=== PATIENT | female | born 1995 | race Caucasian/White ===

== ENCOUNTER 2018-08-20 08:15 | Outpatient (CLI) | payer BC ==
--- NOTE | 2018-08-22 03:39 | Ultrasound Report ---
Reason: TEST POSITIVE Procedure Date: 08/20/2018 Accession Number: [id number] / [id number] Procedure: US - OB First Trimester CPT Code: FULL RESULT: EXAM: FIRST TRIMESTER OBSTETRIC ULTRASOUND (Less than 11 weeks) EXAM DATE: 08/20/2018 09:06 AM. CLINICAL HISTORY: test positive. LMP: Unknown. COMPARISONS: None. TECHNIQUE: Transabdominal and transvaginal ultrasound examination with static image documentation. FINDINGS: Gestational Sac: Approximately 6 mm cystic collection in the uterus is probably an early intrauterine uterine gestation. No yolk sac or pole seen currently. Placenta: Not visible at this gestational age. Amniotic fluid: Not accurately assessed at this gestational age. Uterus: Unremarkable anteverted appearance. Cervix: Closed. Right Ovary: Volume 81 cc. Contains a 65 x 37 x 47 mm cyst. Blood flow documented to the ovary during the study. Left Ovary: Volume 9 cc. Normal echotexture and blood flow. Free Fluid: None. Other: None. IMPRESSION: 1. Probable early intrauterine gestation with gestational sac but no yolk sac or pole seen currently. Clinical and ultrasound follow-up suggested in 2 weeks to ensure viability of and for more accurate dating. 2. Right ovarian 6 cm cyst can be followed up with on the subsequent scan as well. No apparent complication.
== END 2018-08-20 08:16 | disposition home or self-care (01) ==
LOC: DI 08:15
PROVIDERS: ATTEND Nurse Practitioner Obstetrics & Gynecology
DX: Z32.01 Encounter for pregnancy test, result positive (principal)
CPT/HCPCS: 76801

== ENCOUNTER 2018-09-05 14:24 | Emergency (ER) | payer BC ==
[2018-09-05 14:30] VITALS: BP 107/68
--- NOTE | 2018-09-05 16:28 | ED Physician Documentation ---
PD HPI URI - Stated complaint Stated Complaint: SOA/CONGESTED/6WKS - Chief complaint Chief Complaint: Resp - History obtained from History obtained from: Patient - History of Present Illness Timing - onset: How many days ago (few) Timing duration: Days (few) Timing details: Gradual onset, Still present Associated symptoms: Fever, Nasal congestion, Productive cough. No: NVD (no more than usual nausea she has had for 6 weeks with .) Contributing factors: Other (side note: is 6 weeks ). No: Sick contact Improves by: No: Medication (using OTC cough med approved in ) Similar symptoms before: Has not had sx before Recently seen: Not recently seen Review of Systems Constitutional: reports: Myalgias. denies: Fever Nose: reports: Congestion Throat: denies: Sore throat Cardiac: denies: Chest pain / pressure Respiratory: reports: Dyspnea, Cough, Wheezing GI: reports: Nausea. denies: Vomiting, Diarrhea : reports: Now EGA (6). denies: Dysuria, Frequency PD PAST MEDICAL HISTORY - Past Medical History Cardiovascular: None Respiratory: None Neuro: None Endocrine/Autoimmune: None - Present Medications Home Medications: Ambulatory Orders Medication Instructions Recorded Confirmed Albuterol Sulf [Ventolin Hfa 1 - 2 puffs INH Q4HR PRN #1 inhaler 09/05/18 Inhaler] Amoxicillin 500 mg PO TID #21 capsule 09/05/18 Benzonatate [Tessalon Perle] 100 mg PO TID PRN #20 capsule 09/05/18 Dexamethasone [Decadron] 4 mg PO DAILY #5 tablet 09/05/18 Ondansetron Odt [Zofran] 4 mg TL Q6H PRN 09/05/18 09/05/18 Ondansetron Odt [Zofran] 4 mg TL Q6H PRN #20 tablet 09/05/18 - Allergies Allergies/Adverse Reactions: Allergies Allergy/AdvReac Type Severity Reaction Status Date / Time prednisone AdvReac Anxiety Verified 09/05/18 14:30 PD ED PE NORMAL - Vitals Vital signs reviewed: Yes - General General: Alert and oriented X 3, No acute distress, Well developed/nourished - HEENT HEENT: Ears normal, Moist mucous membranes, Pharynx benign - Neck Neck: Supple, no meningeal sign, No adenopathy - Cardiac Cardiac: RRR, No murmur - Respiratory Respiratory: No: Clear bilaterally (scattered exp wheezing) - Abdomen Abdomen: Soft, Non tender - Female Female : Other (bedside U/S showing normal IUP with heartbeat, size c/w dates. ) - Back Back: No CVA TTP - Derm Derm: Normal color, Warm and dry - Extremities Extremities: No edema, No calf tenderness / cord - Neuro Neuro: Alert and oriented X 3, No motor deficit, Normal speech Results - Vitals Vitals: Oxygen O2 Source Room air - Labs Labs: Laboratory Tests 09/05/18 16:39 Influenza A (Rapid) Negative Influenza B (Rapid) Negative PD MEDICAL DECISION MAKING - ED course Complexity details: reviewed results (bedside U/S showing normal IUP c/w dates and visible heart beat. ), considered differential (URI with cough, less flu-lik e, and with negative flu test. ), d/w patient Departure - Departure Disposition: 01 Home, Self Care Clinical Impression: Upper respiratory tract infection Qualifiers: URI type: unspecified URI Qualified Code(s): J06.9 - Acute upper respiratory infection, unspecified Qualifiers: Weeks of gestation: less than 8 weeks Qualified Code(s): Z3A.01 - Less than 8 weeks gestation of Condition: Stable Record reviewed to determine appropriate education?: Yes Instructions: ED Upper Resp Infec Abx Tx Follow-Up: JL WORKMAN MD [Primary Care Provider] - Prescriptions: Albuterol Sulf [Ventolin Hfa Inhaler] 1 - 2 puffs INH Q4HR PRN #1 inhaler PRN Reason: Shortness Of Air/Wheezing Amoxicillin 500 mg PO TID #21 capsule Benzonatate [Tessalon Perle] 100 mg PO TID PRN #20 capsule PRN Reason: Cough Dexamethasone [Decadron] 4 mg PO DAILY #5 tablet Ondansetron Odt [Zofran] 4 mg TL Q6H PRN #20 tablet PRN Reason: Nausea / Vomiting Comments: Stay well-hydrated. Tylenol if needed for fevers or pains. Use your albuterol inhaler 2 puffs 4 times a day for the next week and extra times as needed for wheezing and cough. Decadron steroid daily for 5 more days. If you find it makes you to anxious like the prednisone then just discontinue it. Tessalon if needed for cough. Amoxicillin 3 times a day for a week for potential bacterial cause given your symptoms. Recheck if not improving well over the next few days. Add ondansetron if needed for nausea. Discharge Date/Time: 09/05/18 17:35
[2018-09-05] MEDS ORDERED: AMOXICILLIN 250 MG CAPSULE PO STA (17:01)
[2018-09-05] MEDS ORDERED: DEXAMETHASONE 10 MG/ML VIAL PO STA (17:01)
[2018-09-05] MEDS ORDERED: BENZONATATE 100 MG CAPSULE PO STA (17:01)
== END 2018-09-05 17:35 | disposition home or self-care (01) ==
LOC: ED 14:24
DX: O99.511 Diseases of the respiratory system complicating pregnancy, first trimester (principal); J06.9 Acute upper respiratory infection, unspecified; Z3A.01 Less than 8 weeks gestation of pregnancy
CPT/HCPCS: 87275; 87276; 99283

== ENCOUNTER 2018-09-10 11:52 | Outpatient (CLI) | payer BC ==
--- NOTE | 2018-09-11 14:13 | Ultrasound Report ---
Reason: UNCERTAIN VIABILITY OF Procedure Date: 09/10/2018 Accession Number: [id number] / [id number] Procedure: US - OB First Trimester CPT Code: FULL RESULT: EXAM: FIRST TRIMESTER OBSTETRIC ULTRASOUND (Less than 11 weeks) EXAM DATE: 09/10/2018 01:00 PM. CLINICAL HISTORY: Uncertain viability of . LMP: Unknown. COMPARISONS: OB FIRST TRIMESTER 08/20/2018 8:27 AM. TECHNIQUE: Transabdominal and transvaginal ultrasound examination with static image documentation. CLINICAL DATES: Unknown dates. ASSESSMENT: Gestational Sac: Single intrauterine. Embryo: CRL (crown-rump length) 17.9 mm = 8 weeks 2 days. Cardiac activity: 157 beats per minute. Yolk sac: 5.2 mm. Amniotic fluid: Not accurately assessed at this gestational age. Early placenta: Not visible at this gestational age. Other: No perigestational fluid collection demonstrated. MATERNAL STRUCTURES: Uterus: Anteverted. Unremarkable. Cervix: Closed. Right Ovary/Adnexa: The ovary measures 3.2 x 1.6 x 2 cm, volume 5.3 cc. Unremarkable. 2 x 0.8 x 1.1 cm anechoic right ovarian cyst. No concerning features. Left Ovary/Adnexa: The ovary measures 3.7 x 2.6 x 2.1 cm, volume 10.5 cc. Unremarkable. Free Fluid: None. Other: None. IMPRESSION: 1. Single viable intrauterine at EGA 8 weeks 2 days with ABRAM 04/20/2019 based on crown-rump length. Unknown clinical dates. 2. Assigned dating is ABRAM 8 weeks 2 days based on current ultrasound. 3. 2 cm right ovarian cyst. Otherwise, both ovaries and adnexa are normal. 4. No complications such as a subchorionic hemorrhage. RADIA
== END 2018-09-10 11:53 | disposition home or self-care (01) ==
LOC: DI 11:52
PROVIDERS: ATTEND Nurse Practitioner Obstetrics & Gynecology
DX: O34.81 Maternal care for other abnormalities of pelvic organs, first trimester (principal); N83.201 Unspecified ovarian cyst, right side; Z3A.08 8 weeks gestation of pregnancy
CPT/HCPCS: 76801

== ENCOUNTER 2018-09-11 18:36 | Emergency (ER) | payer BC, OTHER ==
[2018-09-11] MEDS ORDERED: SODIUM CHLORIDE 0.9% 1,000 ML IV ONE (19:18)
[2018-09-11 19:50] LABS: BILIRUBIN,URINE NEGATIVE (NEGATIVE); GLUCOSE, URINE (UA) NEGATIVE (NEGATIVE); KETONES,URINE (UA) NEGATIVE (NEGATIVE); LEUKOCYTE ESTERASE, URINE NEGATIVE (NEGATIVE); NITRITE,URINE NEGATIVE (NEGATIVE); OCCULT BLOOD,URINE NEGATIVE (NEGATIVE); PH,URINE 6.5 PH (5.0-7.5); PROTEIN,URINE NEGATIVE (NEGATIVE); UROBILINOGEN,URINE 0.2 (NORMAL) E.U./dL (NORMAL)
[2018-09-11 19:55] LABS: CLARITY,URINE CLEAR (CLEAR)
[2018-09-11 20:04] LABS: ALBUMIN 3.9 g/dL (3.2-5.5); ALBUMIN/GLOBULIN RATIO 1.1 (1.0-2.2); BILIRUBIN,TOTAL 0.3 mg/dL (0.2-1.0); CALCIUM 8.9 mg/dL (8.5-10.3); CREATININE 0.6 mg/dL (0.4-1.0); TOTAL PROTEIN 7.3 g/dL (6.7-8.2)
[2018-09-11] MEDS ORDERED: ONDANSETRON ODT 4 MG TABLET TL STA (21:22)
--- NOTE | 2018-09-11 22:02 | ED Physician Documentation ---
History of Present Illness - Stated complaint Stated Complaint: N/V/D/8 WKS PREG - Chief complaint Chief Complaint: General - History obtained from History obtained from: Patient - History of Present Illness Timing: How many days ago (2) - Additonal information Additional information: The patient is a 22-year-old female at 8 weeks gestation, who presents with diarrhea of 2 days' duration. She describes it as loose stool, with associated lower abdominal discomfort. She also reports nausea and occasional vomiting. She denies fever, dysuria, or vaginal bleeding. She is lactose intolerant and ate cheese prior to the onset of her symptoms. Review of Systems Constitutional: denies: Fever Nose: denies: Congestion Throat: denies: Sore throat Cardiac: denies: Chest pain / pressure Respiratory: denies: Dyspnea, Cough GI: reports: Abdominal Pain (mild), Nausea, Vomiting, Diarrhea : reports: Now EGA (8 weeks gestation). denies: Dysuria Skin: denies: Rash Musculoskeletal: denies: Back pain Neurologic: denies: Headache PD PAST MEDICAL HISTORY - Past Medical History Past Medical History: No Cardiovascular: None Respiratory: None Neuro: None Endocrine/Autoimmune: None GI: None MANAGER BUDGET: None : None HEENT: None Psych: None Musculoskeletal: None - Past Surgical History Past Surgical History: No - Present Medications Home Medications: Ambulatory Orders Medication Instructions Recorded Confirmed Albuterol Sulf [Ventolin Hfa 1 - 2 puffs INH Q4HR PRN #1 inhaler 09/05/18 Inhaler] Amoxicillin 500 mg PO TID #21 capsule 09/05/18 Benzonatate [Tessalon Perle] 100 mg PO TID PRN #20 capsule 09/05/18 Dexamethasone [Decadron] 4 mg PO DAILY #5 tablet 09/05/18 Ondansetron Odt [Zofran] 4 mg TL Q6H PRN 09/05/18 09/05/18 Ondansetron Odt [Zofran] 4 mg TL Q6H PRN #20 tablet 09/05/18 - Allergies Allergies/Adverse Reactions: Allergies Allergy/AdvReac Type Severity Reaction Status Date / Time prednisone AdvReac Anxiety Verified 09/11/18 18:51 - Social History Does the pt smoke?: No Smoking Status: Current some day smoker Does the pt drink ETOH?: No Does the pt have substance abuse?: No - Immunizations Immunizations are current?: Yes PD ED PE NORMAL - Vitals Vital signs reviewed: Yes (normal) - General General: Alert and oriented X 3, Well developed/nourished - HEENT HEENT: Atraumatic, Moist mucous membranes, Pharynx benign - Neck Neck: Supple, no meningeal sign, No adenopathy - Cardiac Cardiac: RRR, No murmur - Respiratory Respiratory: No respiratory distress, Clear bilaterally - Abdomen Abdomen: Soft, Non tender - Back Back: No CVA TTP - Derm Derm: No rash - Extremities Extremities: No edema, No calf tenderness / cord - Neuro Neuro: Alert and oriented X 3, No motor deficit, Normal speech Results - Vitals Vitals: Oxygen O2 Source Room air - Labs Labs: Laboratory Tests 09/11/18 09/11/18 09/11/18 19:37 19:37 19:37 Sodium 138 Potassium 3.6 Chloride 103 Carbon Dioxide 27 Anion Gap 8.0 BUN 10 Creatinine 0.6 Estimated GFR (MDRD) 125 Glucose 92 Calcium 8.9 Total Bilirubin 0.3 AST 19 ALT 36 Alkaline Phosphatase 58 Total Protein 7.3 Albumin 3.9 Globulin 3.4 Albumin/Globulin Ratio 1.1 Lipase 31 Urine Color YELLOW Urine Clarity CLEAR Urine pH 6.5 Ur Specific Mikado 1.025 Urine Protein NEGATIVE Urine Glucose (UA) NEGATIVE Urine Ketones NEGATIVE Urine Occult Blood NEGATIVE Urine Nitrite NEGATIVE Urine Bilirubin NEGATIVE Urine Urobilinogen 0.2 (NORMAL) Ur Leukocyte Esterase NEGATIVE Ur Microscopic Review NOT INDICATED Urine Culture Comments NOT INDICATED Influenza A (Rapid) Negative Influenza B (Rapid) Negative PD MEDICAL DECISION MAKING - ED course Complexity details: reviewed results, re-evaluated patient, considered differential, d/w patient ED course: The patient's presentation is most consistent with viral gastroenteritis versus lactose intolerance. Her chemistry panel and urinalysis are normal. Treatment in the emergency department included administration of normal saline 1 L IV, and Zofran 4 mg sublingually. She subsequently demonstrated ability to drink fluids without recurrent symptoms. She had no stool while in the emergency department. I discussed with her and her male aquatics coordinator symptomatic treatment, outpatient follow-up, as well as potentially worrisome signs or symptoms that should prompt reevaluation in the emergency department. Departure - Departure Disposition: 01 Home, Self Care Clinical Impression: Diarrhea Qualifiers: Diarrhea type: unspecified type Qualified Code(s): R19.7 - Diarrhea, unspecified Qualifiers: Weeks of gestation: 8 weeks Qualified Code(s): Z3A.08 - 8 weeks gestation of Condition: Stable Instructions: ED Diet Vomiting Diarrhea Follow-Up: JL WORKMAN MD [Primary Care Provider] - [facility] [Provider Group] Comments: Drink plenty of fluids. Continue using Zofran as needed for nausea. Follow-up with your primary physician or your public health technician within 1-2 weeks. Call to schedule an appointment. Return to the emergency department if you develop increasing abdominal pain, dehydration, or otherwise worsening. Discharge Date/Time: 09/11/18 22:16
[2018-09-11 22:13] VITALS: BP 115/76
== END 2018-09-11 22:16 | disposition home or self-care (01) ==
LOC: ED 18:36
DX: O99.611 Diseases of the digestive system complicating pregnancy, first trimester (principal); R19.7 Diarrhea, unspecified; O99.331 Smoking (tobacco) complicating pregnancy, first trimester; Z3A.08 8 weeks gestation of pregnancy
CPT/HCPCS: 36415; 80053; 81003; 83690; 87275; 87276; 96360; 96361; 99282; 99284; Q0162; 81001; 87086

== ENCOUNTER 2018-09-16 08:00 | Outpatient (CLI) | payer BC, OTHER ==
[2018-09-16 18:06] LABS: MUDS CUTOFF CONCENTRATIONS CUTOFF CONC BELOW:
[2018-09-16 18:53] LABS: AMPHETAMINE SCREEN,URINE NEGATIVE (NEGATIVE); BENZODIAZEPINES SCREEN, URINE NEGATIVE (NEGATIVE); COCAINE SCREEN URINE NEGATIVE (NEGATIVE); METHADONE SCREEN, URINE NEGATIVE (NEGATIVE); METHAMPHETAMINES SCREEN, URINE NEGATIVE (NEGATIVE); OPIATE SCREEN, URINE NEGATIVE (NEGATIVE); OXYCODONE SCREEN, URINE NEGATIVE (NEGATIVE); PROPOXYPHENE SCREEN, URINE NEGATIVE (NEGATIVE); TRICYCLIC ANTIDEPRESSANT,URINE NEGATIVE (NEGATIVE)
== END 2018-09-16 23:59 | disposition home or self-care (01) ==
LOC: LAB.R 08:00
PROVIDERS: ATTEND Nurse Practitioner Obstetrics & Gynecology
DX: Z36.89 Encounter for other specified antenatal screening (principal)
CPT/HCPCS: 80306; 87491; 87591

== ENCOUNTER 2018-10-21 12:23 | Outpatient (CLI) | payer BC, OTHER ==
[2018-10-21 12:59] LABS: BASOPHILS # (AUTO) 0.1 10^3/uL (0.0-0.1); EOSINOPHILS # (AUTO) 0.2 10^3/uL (0.0-0.7); EOSINOPHILS % (AUTO) 1.5 %; HGB - HEMOGLOBIN 12.5 g/dL (12.0-16.0); LYMPHOCYTES # (AUTO) 2.8 10^3/uL (1.5-3.5); LYMPHOCYTES % (AUTO) 18.7 %; MEAN CORPUSCULAR HEMOGLOBIN 28.9 pg (27.0-31.0); MEAN CORPUSCULAR HGB CONC 33.1 g/dL (32.0-36.0); MEAN CORPUSCULAR VOLUME 87.4 fL (81.0-99.0); MEAN PLATELET VOLUME 8.6 fL (7.9-10.8); MONOCYTES % (AUTO) 6.9 %; NEUTROPHILS # (AUTO) 10.7 10^3/uL (1.5-6.6); NEUTROPHILS % (AUTO) 71.9 %; PLT - PLATELET COUNT 321 10^3/uL (130-450); RED BLOOD COUNT 4.31 10^6/uL (4.20-5.40); RED CELL DISTRIBUTION WIDTH 13.8 % (12.0-15.0); WHITE BLOOD COUNT 14.9 x10^3/uL (4.8-10.8)
[2018-10-21 13:14] LABS: BILIRUBIN,URINE NEGATIVE (NEGATIVE); GLUCOSE, URINE (UA) NEGATIVE (NEGATIVE); KETONES,URINE (UA) NEGATIVE (NEGATIVE); LEUKOCYTE ESTERASE, URINE NEGATIVE (NEGATIVE); NITRITE,URINE NEGATIVE (NEGATIVE); OCCULT BLOOD,URINE NEGATIVE (NEGATIVE); PROTEIN,URINE NEGATIVE (NEGATIVE); UROBILINOGEN,URINE 0.2 (NORMAL) E.U./dL (NORMAL)
[2018-10-21 13:16] LABS: CLARITY,URINE CLEAR (CLEAR)
[2018-10-21 13:31] LABS: BACTERIA,URINE None Seen /HPF (None Seen); RBC,URINE None Seen /HPF (0-5); SQUAMOUS EPITHELIAL CELL,UR FEW Squamous (<= Few)
[2018-10-22 12:07] LABS: HEPATITIS B SURFACE ANTIGEN NON-REACTIVE (NON-REACTIVE); HEPATITIS C ANTIBODY NON-REACTIVE (NON-REACTIVE)
[2018-10-22 13:11] LABS: HIV AG/AB 4TH GEN NON-REACTIVE (NON-REACTIVE)
== END 2018-10-21 12:24 | disposition home or self-care (01) ==
LOC: LAB 12:23
PROVIDERS: ATTEND Nurse Practitioner Obstetrics & Gynecology
DX: Z36.89 Encounter for other specified antenatal screening (principal)
CPT/HCPCS: 36415; 81001; 81599; 85025; 86592; 86762; 86803; 86850; 86900; 86901; 87086; 87340; 87389

== ENCOUNTER 2018-11-18 13:52 | Outpatient (CLI) | payer BC, OTHER ==
--- NOTE | 2018-11-22 09:33 | Ultrasound Report ---
Reason: ENCTR FOR OTHER SPECIFIED SCREENING Procedure Date: 11/18/2018 Accession Number: [id number] / [id number] Procedure: US - OB Detailed Eval CPT Code: FULL RESULT: EXAM: COMPLETE OBSTETRICAL ULTRASOUND EXAM DATE: 11/18/2018 03:15 PM. CLINICAL HISTORY: anatomic survey. COMPARISON: Ultrasound 08/20/2018 and 09/10/2018. TECHNIQUE: Real-time sonographic evaluation of the fetus performed by the director school of nursing. Multiple account development representative static images were saved for review. DATING: Established EGA 18 weeks 1 day with ABRAM 04/20/2019 based on ultrasound of 09/10/2018. EGA 18 weeks 1 day with ABRAM 04/20/2019 based on the current ultrasound. GENERAL EVALUATION Lindo . Cardiac activity: 138 bpm. movement: Present Presentation: Vertex Placenta: Anterior position. No evidence for previa. Umbilical cord: 3 vessel cord. Central placental cord origin. Amniotic fluid: Subjectively normal. MVP 3.4 cm. BIOMETRY Bi-Parietal Diameter (BPD): 4.3 cm, 18 weeks 6 days Head Circumference (HC): 15.1 cm, 18 weeks 1 day Abdominal Circumference (AC): 12.5 cm, 18 weeks 1 day Femur Length (FL): 2.5 cm, 17 weeks 4 days Estimated Weight: 214 g, 30th percentile for 18 weeks 0 days ANATOMY The intracranial structures, profile, face/nose/lips, 4 chamber heart and outflow tracts, stomach, abdominal wall and cord insertion, diaphragm, kidneys, bladder, and extremities were visualized and demonstrate no abnormality. Suboptimal visualization of the spine due to position but no gross abnormalities are detected. MATERNAL STRUCTURES Uterus: Unremarkable. Cervix: Long and closed. Transabdominal length 4.3 cm. Right ovary/adnexa: Unremarkable. Left ovary/adnexa: Unremarkable. Free fluid: None. IMPRESSION: 1. Lindo intrauterine with gestational age 18 weeks 1 day based on source of assigned dating. 2. Estimated weight is within expected limits for assigned dating. 3. Normal anatomic survey except for limited imaging of the spine. Suggest follow-up dedicated spine imaging in 1-2 weeks. RADIA
== END 2018-11-18 13:53 | disposition home or self-care (01) ==
LOC: DI 13:52
PROVIDERS: ATTEND Nurse Practitioner Obstetrics & Gynecology
DX: Z36.89 Encounter for other specified antenatal screening (principal)
CPT/HCPCS: 76811

== ENCOUNTER 2018-12-07 10:47 | Outpatient (CLI) | payer BC, OTHER ==
--- NOTE | 2018-12-07 11:57 | Ultrasound Report ---
Reason: ENCOUNTER FOR OTHER SPECIFIED SCREENING Procedure Date: 12/07/2018 Accession Number: [id number] / [id number] Procedure: US - OB F/U or Repeat CPT Code: FULL RESULT: EXAM: FOLLOW-UP OBSTETRICAL ULTRASOUND EXAM DATE: 12/07/2018 11:21 AM. CLINICAL HISTORY: ENCOUNTER FOR OTHER SPECIFIED SCREENING. A follow-up exam of the spine has been requested. COMPARISON: First trimester obstetrical ultrasound 09/10/2018. TECHNIQUE: Real-time sonographic evaluation of the fetus performed by the materials engineering technician using transabdominal imaging only. Multiple corporate sales representative static images were saved for review. DATING: Established EGA 20 weeks 6 days with ABRAM 04/20/2019 based on referring physician dating. GENERAL EVALUATION Lindo . Cardiac activity: 151 bpm. movement: Visualized. Presentation: Breech Placenta: Anterior position. Amniotic fluid: Normal. SARA 14.6 cm. MVP 4.2 cm. BIOMETRY: Not performed. Limited examination. ANATOMY Evaluation was limited to the spine. The cervical, thoracic and lumbar spine are unremarkable. MATERNAL STRUCTURES IMPRESSION: 1. Lindo live intrauterine with gestational age 20 weeks 6 days based on referring physician. 2. Limited anatomic evaluation reveals a normal spine. RADIA
== END 2018-12-07 10:48 | disposition home or self-care (01) ==
LOC: DI 10:47
PROVIDERS: ATTEND Nurse Practitioner Obstetrics & Gynecology
DX: Z36.89 Encounter for other specified antenatal screening (principal)
CPT/HCPCS: 76816

== ENCOUNTER 2018-12-23 09:53 | Outpatient (CLI) | payer BC, OTHER ==
[2018-12-23] MEDS ORDERED: SODIUM CHLORIDE FLUSH 0.9% 10 ML SYRINGE ONE (10:08)
[2018-12-23] MEDS ORDERED: LACTATED RINGERS 1,000 ML IV ONE ×2 (10:08→10:25)
[2018-12-23] MEDS ORDERED: LACTATED RINGERS 500 ML IV ONE (10:19)
[2018-12-23 10:24] VITALS: BP 105/69
--- NOTE | 2018-12-23 16:55 | PROVIDER PROGRESS NOTE ---
- HPI Chief Complaint: GI symptoms Current : Vital Signs Temperature 36.9 C 12/23/18 10:10 Heart Rate 99 12/23/18 10:10 Respiratory Rate 20 12/23/18 10:10 Blood Pressure 105/69 12/23/18 10:10 O2 Saturation 99 12/23/18 10:10 Temperature 36.9 C 12/23/18 10:10 Heart Rate 99 12/23/18 10:10 Respiratory Rate 20 12/23/18 10:10 Blood Pressure 105/69 12/23/18 10:10 O2 Saturation 99 12/23/18 10:10 - Exam Daphne presents to [facility] after her routine visit at [facility] for IV hydration s/p persistent nausea and vomiting in in addition to diarrhea and inability to keep anything down. Pt received 1 liter of LR via IV for hydration and reports feeling slightly improved. Advised BRAT diet. Pt released home with precautions and instructions to return in 24 hours for additional hydration if symptoms persist. Pt verbalized understanding and denies further questions or concerns at this time. - Procedures OB Procedure Performed: Other NST Procedure: NST Procedure Stop Time 11:30 Service Date of procedure: 12/23/18 Procedure Details: 1 Liter of LR administered over 1 hour Findings: Symptoms slightly improved. - Plan Plan: BRAT diet. Return in 24 hours if symptoms persist.
== END 2018-12-23 11:30 | disposition home or self-care (01) ==
LOC: LAB 09:53 → FBP 09:57 → WFO 11:30
PROVIDERS: ATTEND Nurse Practitioner Obstetrics & Gynecology
DX: O21.9 Vomiting of pregnancy, unspecified (principal); R19.7 Diarrhea, unspecified; Z3A.00 Weeks of gestation of pregnancy not specified
CPT/HCPCS: 99212; J7120

== ENCOUNTER 2019-01-23 01:50 | Emergency (ER) | payer BC, OTHER ==
--- NOTE | 2019-01-23 02:00 | ED Physician Documentation ---
PD HPI FEMALE - Stated complaint Stated Complaint: FEM - Chief complaint Chief Complaint: General - History obtained from History obtained from: Patient - History of Present Illness Timing - onset: Yesterday Timing - details: Gradual onset, Still present, Constant Pain level max: 8 Associated symptoms: Other (hemorrhoidal pain/rectal pain) Contributing factors: (27 weeks) OB-EMERGENCY MANAGEMENT SYSTEM DIRECTOR History: G (2), P (1) Similar symptoms before: Has not had sx before Recently seen: Not recently seen - Additional information Additional information: c/o painful hemorrhoids x 24 hours. second , 27 weeks . Review of Systems Constitutional: reports: Reviewed and negative GI: reports: Reviewed and negative : reports: Now EGA (27 weeks). denies: Dysuria, Frequency PD PAST MEDICAL HISTORY - Past Medical History Cardiovascular: None Respiratory: None Neuro: None Endocrine/Autoimmune: None GI: None EMERGENCY MANAGEMENT SYSTEM DIRECTOR: None : None HEENT: None Psych: None Musculoskeletal: None - Past Surgical History Past Surgical History: No - Present Medications Home Medications: Ambulatory Orders Medication Instructions Recorded Confirmed Albuterol Sulf [Ventolin Hfa 1 - 2 puffs INH Q4HR PRN #1 inhaler 09/05/18 Inhaler] oxyCODONE [Roxicodone] 5 mg PO Q4HR PRN #14 tablet 01/23/19 - Allergies Allergies/Adverse Reactions: Allergies Allergy/AdvReac Type Severity Reaction Status Date / Time prednisone AdvReac Anxiety Verified 01/23/19 01:56 - Social History Does the pt smoke?: No Smoking Status: Current some day smoker Does the pt drink ETOH?: No Does the pt have substance abuse?: No - Immunizations Immunizations are current?: Yes PD ED PE NORMAL - Vitals Vital signs reviewed: Yes - General General: Alert and oriented X 3, No acute distress, Well developed/nourished - Derm Derm: Normal color, Warm and dry PD ED PE EXPANDED - Female Female : Metal Control Worker 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 Lombardi, recommends contact surgery. d/w Dr. Dove, requests hold patient in ED until AM and he will evaluate in ED. He subsequently evaluated patient in ED and recommends d/c home, return if worse, will reevaluate in his office later this week. patient is comfortable with this plan Departure - Departure Disposition: Home, Self Care Clinical Impression: Qualifiers: Weeks of gestation: 27 weeks Qualified Code(s): Z3A.27 - 27 weeks gestation of Condition: Good Instructions: ED Hemorrhoids Follow-Up: JL WORKMAN MD [Primary Care Provider] - Devon Dove MD [Provider Admit Priv/Credential] - Prescriptions: oxyCODONE [Roxicodone] 5 mg PO Q4HR PRN #14 tablet PRN Reason: Pain Forms: Activity restrictions Discharge Date/Time: 01/23/19 07:56
[2019-01-23] MEDS ORDERED: ACETAMINOPHEN 325 MG TABLET PO STA (05:49)
[2019-01-23] MEDS ORDERED: oxyCODONE 5 MG TABLET PO STA (06:29)
[2019-01-23 07:55] VITALS: BP 95/64
--- NOTE | 2019-01-23 13:45 | CONSULTATION NOTE ---
Referring Provider Name of Referring Provider:: Dr. Doll Consult Date: 01/23/19 Chief Complaint - Chief Complaint Chief Complaint: hemorrhoidal pain History of Present Illness - History Obtained From Records Reviewed: yes History obtained from: pt Exam Limitations: none - History of Present Illness HPI Comment/Other: 23 yo female 27 wks with onset of severe rectal pain and perianal swelling 36 hours ago following passing a hard stool. Pt had been constipated for several days prior. Pt has a hx of symptomatic hemorrhoids treated with band ligation therapy in 2018. Because of severe pain refractory to topical therapy pt presented to the ER. No abdominal pain, fever, bleeding per rectum. She has taken no analgesics for the pain, reluctant to take medication due to her . She has not tried sitz baths either at home although one here in the ER was minimally helpful she reports. Sx are improved following oral narcotic therapy in the ER. History - Past Medical History Cardiovascular: reports: None Respiratory: reports: Asthma Neuro: reports: None Endocrine/Autoimmune: reports: None GI: reports: None OBSTETRICS AND GYNECOLOGY PROFESSOR: reports: None : reports: None HEENT: reports: None Psych: reports: None Musculoskeletal: reports: None MRSA Hx?: No - Past Surgical History General: reports: Other (hemorrhoid banding) - POLST Patient has POLST: No Meds/Allgy - Home Medications Home Medications: Ambulatory Orders Medication Instructions Recorded Confirmed Albuterol Sulf [Ventolin Hfa 1 - 2 puffs INH Q4HR PRN #1 inhaler 09/05/18 Inhaler] oxyCODONE [Roxicodone] 5 mg PO Q4HR PRN #14 tablet 01/23/19 - Allergies Allergies/Adverse Reactions: Allergies Allergy/AdvReac Type Severity Reaction Status Date / Time prednisone AdvReac Anxiety Verified 01/23/19 01:56 Review of Systems - Constitutional Constitutional: denies: Fever, Night sweats, Weight loss - Gastrointestinal Gastrointestinal: reports: Constipation. denies: Abdominal pain, Diarrhea, Rectal bleeding, Black stools, Bloody stools, Nausea, Vomiting Exam - Vital Signs Reviewed Vital Signs: Yes Vital Signs: Vital Signs x48h Temp Pulse Resp BP Pulse Ox 01/23/19 07:54 36.7 C 84 16 95/64 96 01/23/19 06:11 89 18 107/63 98 - Physical Exam General Appearance: positive: Alert, Moderate distress Eyes Bilateral: positive: Normal inspection, No scleral icterus ENT: positive: ENT inspection nml, Pharynx nml, No signs of dehydration Neck: positive: No JVD Respiratory: positive: Chest non-tender, No respiratory distress, Breath sounds nml Cardiovascular: positive: Regular rate & rhythm, No murmur, No gallop Abdomen: positive: Non-tender, Other (gravid uterus palpable above the level of the umbilicus) Rectal: positive: Hemorrhoid (marked edematous internal/external hemorrhoids bilat anterior quadrants; no evidence of thrombosis or gangrene) Skin: positive: Color nml, No rash, Warm, Dry Extremities: positive: No pedal edema. negative: Calf tenderness Neurologic/Psychiatric: positive: Oriented x3 Conclusion/Plan - Diagnosis Diagnosis: Acute hemorrhoidal inflammation without evidence of need for emergency surgical intervention in a patient 27 weeks . - Plan Plan: I advised conservative therapy with high fiber diet, daily Miralax, Sitz baths 3-4 times daily, and oral analgesics as necessary. Surgery should be considered only as a last resort given her , and be performed in an institution with MFM and NICU services available should premature labor occur. Discussed in detail with pt who understands and agrees to try this approach. She should f/u with me in my office later this week.Thanks,
== END 2019-01-23 07:56 | disposition home or self-care (01) ==
LOC: ED 01:50
DX: O22.42 Hemorrhoids in pregnancy, second trimester (principal); F17.200 Nicotine dependence, unspecified, uncomplicated; Z3A.27 27 weeks gestation of pregnancy
CPT/HCPCS: 99282; 99283; A9270

== ENCOUNTER 2019-01-25 20:57 | Outpatient (CLI) | payer BC, OTHER ==
[2019-01-25 21:11] VITALS: BP 111/65
[2019-01-25] MEDS ORDERED: ONDANSETRON 4 MG/2 ML VIAL IVP PRN (22:04)
[2019-01-25] MEDS ORDERED: LACTATED RINGERS 1,000 ML IV ONE (22:04)
[2019-01-25] MEDS ORDERED: SODIUM CHLORIDE FLUSH 0.9% 10 ML SYRINGE ONE (22:25)
--- NOTE | 2019-01-26 07:29 | PROVIDER PROGRESS NOTE ---
- HPI Chief Complaint: Other Current : Current [facility] 04/20/19 Gestation 27 Weeks and 6 Days 2 Para 1 Vital Signs Temperature 36.8 C 01/25/19 21:07 Heart Rate 119 H 01/25/19 21:07 Respiratory Rate 20 01/25/19 21:07 Blood Pressure 111/65 01/25/19 21:07 O2 Saturation 96 01/25/19 21:07 Temperature 36.8 C 01/25/19 23:19 Heart Rate 87 01/25/19 23:45 Respiratory Rate 20 01/25/19 21:07 Blood Pressure 111/65 01/25/19 21:07 O2 Saturation 97 01/25/19 23:45 - Exam S: Daphne is a 23yo @ 27.6 wks gestation by 8.2wk U/S who presents to [facility] with c/o lightheadedness, dizziness, tachycardia and clammy skin. She states she has vomited twice today but this is not abnormal for her and she has experienced nausea and vomiting through the duration of her . She took her heart rate at home and reports it was 130bpm and this made her nervous. She states she has not done much of anything today because she has not been feeling well for the past couple of days. She feels she is adequately hydrated despite her vomiting today. She denies fever, chills, body aches, or headaches. She denies vaginal bleeding or leakage of fluid. She reports +FM. She been dealing with a newly diagnosed thrombosed hemorrhoid and is meeting with a general surgeon for development of a care plan/surgical plan tomorrow. She denies new onset bleeding from the affected hemorrhoid and reports some scant spotting on her pad when changing her underwear earlier today but otherwise none. She refuses IV hydration and requests an EKG as she is nervous about her fast heart rate. She denies any medical hx of cardiac abnormalities. O: Afebrile. T36.8. Heart rate 87-119s. BP 111/65. RR 20. FHR baseline 150s, moderate variability, no decelerations EKG - WNL; Normal sinus rhythm, no abnormalities A: 23yo @ 27.6wks gestation by 8.2wk U/S Lightheadedness in , second trimester Intermittent tachycardia Afebrile P: Patient feels reassured following normal EKG. She states she is feeling slightly better and her heart rate has normalized. She was released home with precautions. Pt verbalized understanding and agrees to above plan. She denies further questions or concerns at this time. - Procedures NST Procedure: NST Procedure Stop Time 11:30 Procedure Details: Full NST not performed secondary to no indication. FHR baseline with spot check baseline 150s, moderate variability, no decelerations.
== END 2019-01-26 00:21 | disposition home or self-care (01) ==
LOC: WFO 20:57 → FBP 20:58 → WFO 01-26 00:21
PROVIDERS: ATTEND Nurse Practitioner Obstetrics & Gynecology
DX: O26.892 Other specified pregnancy related conditions, second trimester (principal); R42 Dizziness and giddiness; R00.0 Tachycardia, unspecified; O21.2 Late vomiting of pregnancy; O22.42 Hemorrhoids in pregnancy, second trimester; Z3A.27 27 weeks gestation of pregnancy
CPT/HCPCS: 93005; 96374; 99214; J7120

== ENCOUNTER 2019-02-02 16:09 | Outpatient (CLI) | payer BC, OTHER ==
[2019-02-02 16:32] LABS: BASOPHILS # (AUTO) 0.1 10^3/uL (0.0-0.1); BASOPHILS % (AUTO) 0.4 %; EOSINOPHILS # (AUTO) 0.2 10^3/uL (0.0-0.7); EOSINOPHILS % (AUTO) 1.2 %; HGB - HEMOGLOBIN 12.3 g/dL (12.0-16.0); LYMPHOCYTES # (AUTO) 3.7 10^3/uL (1.5-3.5); MEAN CORPUSCULAR HEMOGLOBIN 29.4 pg (27.0-31.0); MEAN CORPUSCULAR VOLUME 89.2 fL (81.0-99.0); MEAN PLATELET VOLUME 10.8 fL (7.9-10.8); MONOCYTES # (AUTO) 1.5 10^3/uL (0.0-1.0); MONOCYTES % (AUTO) 8.4 %; NEUTROPHILS # (AUTO) 12.1 10^3/uL (1.5-6.6); NEUTROPHILS % (AUTO) 68.2 %; PLT - PLATELET COUNT 388 10^3/uL (130-450); RED BLOOD COUNT 4.18 10^6/uL (4.20-5.40); RED CELL DISTRIBUTION WIDTH 13.5 % (12.0-15.0); WHITE BLOOD COUNT 17.8 x10^3/uL (4.8-10.8)
[2019-02-02 16:48] LABS: T4 (THYROXINE) 8.69 ug/dL (6.09-12.23)
[2019-02-02 16:52] LABS: THYROID STIMULATING HORMONE 1.55 uIU/mL (0.34-5.60)
[2019-02-02 16:54] LABS: FREE T4 (FREE THYROXINE) 0.62 ng/dL (0.58-1.64)
== END 2019-02-02 16:10 | disposition home or self-care (01) ==
LOC: LAB 16:09
PROVIDERS: ATTEND Nurse Practitioner Obstetrics & Gynecology
DX: R00.2 Palpitations (principal); Z34.83 Encounter for supervision of other normal pregnancy, third trimester; Z36.89 Encounter for other specified antenatal screening
CPT/HCPCS: 36415; 84436; 84439; 84443; 85025; 86850

== ENCOUNTER 2019-02-03 12:28 | Outpatient (CLI) | payer BC, OTHER | END 2019-02-03 12:29 | disposition home or self-care (01) | LOC: LAB 12:28 | PROVIDERS: ATTEND Obstetrics & Gynecology | DX: Z34.83 Encounter for supervision of other normal pregnancy, third trimester (principal) | CPT/HCPCS: 36415; 82950 ==

== ENCOUNTER 2019-03-17 08:00 | Outpatient (CLI) | payer BC, OTHER ==
[2019-03-17 22:53] LABS: TRICHOMONAS VAGINALIS DNA NEGATIVE (NEGATIVE)
== END 2019-03-17 23:59 | disposition home or self-care (01) ==
LOC: LAB.R 08:00
PROVIDERS: ATTEND Obstetrics & Gynecology
DX: Z34.90 Encounter for supervision of normal pregnancy, unspecified, unspecified trimester (principal)
CPT/HCPCS: 87491; 87591; 87661; 87797

== ENCOUNTER 2019-04-02 07:09 | Outpatient (CLI) | payer BC, OTHER ==
[2019-04-02 07:43] VITALS: BP 112/77
--- NOTE | 2019-04-17 21:15 | PROCEDURE REPORT ---
- HPI Diagnosis/Indication for NST: Other (Lupe is a 23 yo at 37w3d EGA. Presents with intermittent lower abd cramping 2/10. No contractions palpated with episodes of cramping. 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 No VB or LOF. Endorses FM) Current EDU 04/20/19 Gestation 37 Weeks and 3 Days 2 Para 1 Vital Signs Temperature 97.7 F 04/02/19 07:18 Heart Rate 104 H 04/02/19 07:18 Respiratory Rate 20 04/02/19 07:18 Blood Pressure 112/77 04/02/19 07:18 O2 Saturation 100 04/02/19 07:18 Temperature 97.7 F 04/02/19 07:18 Heart Rate 104 H 04/02/19 07:18 Respiratory Rate 20 04/02/19 07:18 Blood Pressure 112/77 04/02/19 07:18 O2 Saturation 100 04/02/19 07:18 - NST Procedure NST Procedure Stop Time 11:30 EFM 135 mod laverne 15x15 accels no decels TOCO: intermittent - Results and Plan Findings/Impression: 23 yo at 37w3d ega with abdominal cramping Recent intercourse after 's return from deployment Cat I tracing Uterine irritability on toco Declines SVE Reassured and discharged to home Routine discharge instructions given Routine OB care DOS: 04/02/19 DX: Abdominal cramping
== END 2019-04-02 08:15 | disposition home or self-care (01) ==
LOC: WFO 07:09 → FBP 07:29 → WFO 08:15
PROVIDERS: ATTEND Obstetrics & Gynecology
DX: O26.893 Other specified pregnancy related conditions, third trimester (principal); R10.30 Lower abdominal pain, unspecified; Z3A.37 37 weeks gestation of pregnancy
CPT/HCPCS: 99212

== ENCOUNTER 2019-04-14 06:25 | Inpatient (IN) | payer BC, OTHER ==
[2019-04-14] MEDS ORDERED: ONDANSETRON 4 MG/2 ML VIAL IVP PRN ×2 (07:15→19:32)
[2019-04-14] MEDS ORDERED: SODIUM CHLORIDE FLUSH 0.9% 10 ML SYRINGE IVP PRN (07:15)
[2019-04-14 09:34] LABS: BASOPHILS # (AUTO) 0.1 10^3/uL (0.0-0.1); BASOPHILS % (AUTO) 0.4 %; EOSINOPHILS # (AUTO) 0.2 10^3/uL (0.0-0.7); EOSINOPHILS % (AUTO) 1.3 %; HGB - HEMOGLOBIN 10.3 g/dL (12.0-16.0); LYMPHOCYTES # (AUTO) 3.2 10^3/uL (1.5-3.5); LYMPHOCYTES % (AUTO) 21.8 %; MEAN CORPUSCULAR HEMOGLOBIN 28.1 pg (27.0-31.0); MEAN CORPUSCULAR HGB CONC 32.1 g/dL (32.0-36.0); MEAN CORPUSCULAR VOLUME 87.5 fL (81.0-99.0); MONOCYTES # (AUTO) 1.4 10^3/uL (0.0-1.0); MONOCYTES % (AUTO) 9.5 %; NEUTROPHILS # (AUTO) 9.8 10^3/uL (1.5-6.6); NEUTROPHILS % (AUTO) 66.3 %; PLT - PLATELET COUNT 286 10^3/uL (130-450); RED BLOOD COUNT 3.67 10^6/uL (4.20-5.40); RED CELL DISTRIBUTION WIDTH 13.8 % (12.0-15.0); WHITE BLOOD COUNT 14.8 x10^3/uL (4.8-10.8)
[2019-04-14] MEDS: miSOPROStoL 100 MCG TABLET BC SCH ×2 (10:35→14:48)
[2019-04-14] MEDS ORDERED: CITALOPRAM HYDROBROMIDE 20 MG TABLET PO SCH (13:00)
--- NOTE | 2019-04-14 17:44 | HISTORY & PHYSICAL EXAMINATION ---
Admit History - Visit Reason Visit Reason: Other - : 2 Parity: 1 Premature: 0 Ectopic: 0 : 0 Care: positive: [facility] Risk/History: positive: None Complications This : positive: None Smoking Status: Former smoker - Mother's Labs Mother's Blood Type: positive: A Mother's RH: positive: Positive GBS: positive: Group B Step Negative Rubella Status: positive: Immune Meds/Allgy - Home Medications Home Medications: Ambulatory Orders Medication Instructions Recorded Confirmed Albuterol Sulf [Ventolin Hfa 1 - 2 puffs INH Q4HR PRN #1 inhaler 09/05/18 Inhaler] oxyCODONE [Roxicodone] 5 mg PO Q4HR PRN #14 tablet 01/23/19 - Allergies Allergies/Adverse Reactions: Allergies Allergy/AdvReac Type Severity Reaction Status Date / Time prednisone AdvReac Anxiety Verified 01/23/19 01:56 Review of Systems - Constitutional Constitutional: denies: Fatigue, Fever, Chills, Malaise - Eyes Eyes: denies: Blurred vision, Spots in vision, Dipolpia - Cardiovascular Cariovascular: denies: Irregular heart rate, Chest pain, Edema - Gastrointestinal Gastrointestinal: reports: Other. denies: Abdominal pain, Constipation, Diarrhea, Nausea, Vomiting - Integumentary Integumentary: denies: Rash, Pruritis - Neurological Neurological: denies: Headache - Psychiatric Psychiatric: denies: Depression, Anxiety Physical - Abdominal Exam Vital Signs: Temp Pulse Resp BP Pulse Ox 36.7 C 91 18 114/68 98 04/14/19 09:00 04/14/19 09:00 04/14/19 09:00 04/14/19 09:00 04/14/19 09:00 - Monitoring Strip Review: positive: Category I - Presentation Presentation: positive: Vertex - Vaginal Exam Membranes: positive: Membranes intact Plan for Labor - Plan For Labor I expect patient to be DC'd or transferred within 96 hours.: Yes Plan for Labor: HPI: Daphne is a 23yo @ 39.1wks gestation who presented to [facility] on 04/14/2019 @ 0630 for elective induction of labor which was originally scheduled 04/13/2019 @ 0630 but was delayed secondary to staffing concerns. She has been a patient of [facility] through the duration of her . Her has been complicated by severe, persistent nausea and vomiting through the duration of her which required multiple episodes of IV hydration and IV anti-nausea medication. In addition she experienced tachycardia and palpitations beginning at 31wks gestation for which she wore a 48 hour halter monitor and results were WNL. Her palpitations have since resolved. She has also struggled with thrombosed hemorrhoids on two separate occasions in her third trimester of for which she has been regularly seen by general surgery. Per patient her hemorrhoids have slightly improved and she did discuss with her general surgeon the possible need for surgery if symptoms recur as well as slight possibility that she could have to have an emergency hemorrhoidectomy following delivery. She has struggled with anxiety and depression for several years and is currently taking 20mg of Citalopram PO daily which has stabilized her moods.The patient was placed in an observation status in [facility] for pre-induction cervical ripening. Dating criteria: LMP unknown Initial Ultrasound: @ 8.2wks gestation reveals single, viable intrauterine dates . Serial exams: Agree OB History: G1: 05/19/2015, , 41+wks gestation, 36hr labor, epidural, [facility], Male, [id number] G2: Current Medications: Oxycodone PRN; Citalopram 20mg PO daily, PNV, Zofran, Diclegis Allergies: Prednisone PMHx: Anxiety, depression, headaches/migraines, asthma Surgical Hx: none Social Hx: Former smoker, no ETOH or IVDA. 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. [employer] is [employer] . Family Hx: Alocholism - father; Anxiety/depression - father, brother (suicide); diabetes - father; Weight disorder - mother; arthritis - mother; Breast cancer - maternal grandmother labs: Hgb 10.3; Hct 32.1 PLT 286 Blood type A positive, antibody neg Rubella immune RPR non-reactive Hep B neg Hep C neg GC/CT neg HIV neg UTOX neg 1 hour GTT 129 GBS NEG Tdap 01/20/2019 Ultrasounds: 09/16/2018 Initial ultrasound @ 8.2wks gestation reveals single, viable intrauterine dates . 11/18/2018 [facility] WNL with exception of limited visualization of spine - recommend f/u for completion. Anterior placenta, no previa. 3VC. Patient notified of results. Will order f/u [facility] for completion. 12/07/2018 [facility] completion WNL Physical Exam: Normocephalic, atraumatic Heart RRR w/o M/G/R Lungs CTAB Abdomen gravid, soft, nontender EFW 3100g Bilateral LEs' no edema Mood is good supportive at the bedside Assessment: 23yo @ 39.1wks gestation by 8.4wk U/S Elective induction of labor with pre-induction cervical ripening with misoprostol GBS neg Hemorrhoids - improved over the past week. Not thrombosed at present. Plan: Continue pre-induction cervical ripening with 50mcg BC misoprostol q 4 hours Reviewed patient status and plan of care with salon/spa manager physician - will continue pre-induction cervical ripening over night and care handed to physicians at 1500. Continuous monitoring Epidural per maternal request Reviewed plan of care with patient, , and labor and delivery driver who are in agreement with above plan and deny further questions or concerns at this time.
--- NOTE | 2019-04-14 18:53 | PROVIDER PROGRESS NOTE ---
Labor Progress Note - Uterine Monitoring Uterine Monitoring Mode: positive: External toco Contraction Frequency (min/apart): 1-3 Contraction Intensity: positive: Moderate Uterine Resting Tone: positive: Soft - Monitoring Monitor Mode: positive: External ultrasound Heart Rate Baseline: 130 Heart Rate Variability: positive: Moderate (6-25 bmp) Accelerations: positive: Present, 15x15 Decelerations: positive: None - Vaginal Exam Dilation (in cm): 3 Effacement (%): 90 Station: -1 Cervical Position: Midposition - Labor Progress Note Labor Progress Note/Additional Text: S: Patient walking around in the room and desires to get in the jacuzzi. She request an epidural after she gets out of the jacuzzi. She has been feeling her contractions increase in intensity for the past hour. She is anxious to have a baby. Her is supportive at the bedside. O: FHR baseline 140s, moderate variability, + accels, no decels Contractions palpate moderate every 1-3 minutes with soft resting tone SVE 3/90/-1, midposition, vertex AROM moderate amount of clear fluid A: 23yo @ 39.1wks gestation by 8.4wk U/S s/p 2 doses of 50mcg BC misoprostol - last dose at 1448 FHR Category I GBS neg Early labor P: Continous monitoring Epidural per maternal request hooker laster physician notified of patient status. Call handed to physician.
[2019-04-14] MEDS: LACTATED RINGERS 1,000 ML IV SCH ×2 (18:55→20:15)
[2019-04-14] MEDS ORDERED: OXYTOCIN/DEXTROSE 5 % 30 UNIT/500 ML BAG IV ONE (19:03)
--- NOTE | 2019-04-14 19:07 | ANESTHESIA ---
Pre-Anesthesia VS, & Labs - Diagnosis Active labor - Procedure vaginal delivery Vital Signs: Temp Pulse Resp BP Pulse Ox 36.7 C 91 18 114/68 98 04/14/19 09:00 04/14/19 09:00 04/14/19 09:00 04/14/19 09:00 04/14/19 09:00 Height 5 ft 7 in Weight (kg) 76.294 kg Body Mass Index 25.0 - NPO Other (clear liquids/labor) - Is Patient ?: Yes - Lab Results Current Lab Results: Laboratory Tests 04/14/19 09:08: WBC 14.8 H, RBC 3.67 L, Hgb 10.3 L, Hct 32.1 L, MCV 87.5, MCH 28.1, MCHC 32.1, RDW 13.8, Plt Count 286, MPV 12.0 H, Neut # (Auto) 9.8 H, Lymph # (Auto) 3.2, [place] # (Auto) 1.4 H, Eos # (Auto) 0.2, Baso # (Auto) 0.1, Absolute Nucleated RBC 0.00, Nucleated RBC % 0.0 Fish Bones: 04/14/19 09:08 Home Medications and Allergies Active Medications Citalopram Hydrobromide (Celexa) 20 mg PO DAILY [facility] Last Admin: 04/14/19 13:36 Dose: 20 mg Lactated Ringer's (Lr) 1,000 mls @ 100 mls/hr IV .Q10H [facility] Last Admin: 04/14/19 18:55 Dose: 100 mls/hr Misoprostol (Cytotec) 50 mcg BC Q4HR [facility] Last Admin: 04/14/19 14:48 Dose: 50 mcg Ondansetron HCl (Zofran Inj) 4 mg IVP Q4HR PRN PRN Reason: Nausea / Vomiting Last Admin: 04/14/19 17:09 Dose: 4 mg Sodium Chloride (Normal Saline Flush 0.9%) 10 ml IVP PRN PRN PRN Reason: NEEDED PER PROVIDER ORDERS Last Admin: 04/14/19 16:25 Dose: 10 ml Allergies/Adverse Reactions: Allergies Allergy/AdvReac Type Severity Reaction Status Date / Time prednisone AdvReac Anxiety Verified 01/23/19 01:56 Anes History & Medical History - Anesthetic History Anesthesia Complications: reports: No previous complications - Medical History Cardiovascular: reports: None Pulmonary: reports: None Gastrointestinal: reports: Hemorrhoids Urinary: reports: None Neuro: reports: None Musculoskeletal: reports: None Endocrine/Autoimmune: reports: None Blood Disorders: reports: Anemia Smoking Status: Former smoker Psychosocial: reports: Depression - Surgical History General: Other (hemorrhoid banding) - Obstetrical History : 2 Parity: 1 Events: positive: None Complications: positive: None Exam General: Alert, Oriented x3, Cooperative, No acute distress Dental: WNL Mouth Openin Fingerbreadth Neck Mobility: Normal Mallampati classification: II Thyromental Distance: greater than 6 cm Plan Anesthesia Type: Epidural Consent for Procedure(s) Verified and Reviewed: Yes Code Status: Attempt Resuscitation ASA classification: 2-Mild systemic disease Is this case an emergency?: No
[2019-04-14] MEDS ORDERED: ROPIVACAINE 0.2% 200 MG/100 ML BAG EP ONE (19:15)
[2019-04-14] MEDS ORDERED: ePHEDrine 50 MG/ML VIAL IVP PRN (19:32)
[2019-04-14] MEDS ORDERED: ROPIVACAINE 0.2% 200 MG/100 ML BAG EP PRN (19:32)
[2019-04-14] MEDS ORDERED: NALOXONE 0.4 MG/ML VIAL IVP PRN (19:32)
[2019-04-14] MEDS ORDERED: SODIUM CHLORIDE 0.9% 10 ML ONE (19:47)
[2019-04-14] MEDS ORDERED: fentaNYL 100 MCG/2 ML VIAL ONE (19:47)
[2019-04-14] MEDS ORDERED: LIDOCAINE-PF 2% 10 ML AMP SUBQ ONE (19:48)
[2019-04-14] MEDS ORDERED: LIDOCAINE-MPF 1% 30 ML VIAL ONE (21:28)
[2019-04-14] MEDS ORDERED: LIDOCAINE 1%-EPI 1:100000 20 ML MDV ONE (21:35)
[2019-04-14] MEDS ORDERED: OXYTOCIN/DEXTROSE 5 % 30 UNIT/500 ML BAG IV PRN (21:39)
[2019-04-14] MEDS ORDERED: WITCH HAZEL/GLYCERIN 1 PAD TOP PRN (21:51)
[2019-04-14] MEDS ORDERED: HYDROcod/ACETAM 5/325 MG TABLET PO PRN (21:51)
--- NOTE | 2019-04-14 21:58 | DELIVERY NOTE ---
Delivery Note - Labor Labor: positive: Augmented by ARM, Other (Misaprostil induction) - Infant Delivery Method Delivery Method: positive: Spontaneous vaginal delivery - Cervical Ripening Method Cervical Ripening Method: positive: Misoprostil - Presentation Presentation: positive: Vertex, ALANIS - right occiput anterior - Nuchal Cord Nuchal Cord: positive: None - Anesthetic Anesthetic Type: - Amniotic Fluid Description Amniotic Fluid Description: positive: Light meconium - Episiotomy Type Episiotomy Type: positive: None - Laceration Laceration: positive: None - Delivery Outcome Delivery Outcome: positive: Livebirth - [place]: positive: Placed in direct skin contact with mother, Suctioned, Bulb syringe Clinton sex: positive: Male : Apgars 8 and 9 - Cord Cord: positive: 3 vessels - Placenta Placenta: positive: Intact, Spontaneous - Estimated Blood Loss Estimated Blood Loss (in cc): 100 - Post Delivery Events Post Delivery Events: positive: No post delivery events - Delivery Comments (Free Text/Narrative) Delivery Comments (Free Text/Narrative): The patient had been brought in and 39 weeks by the assistant professor of education for induction of labor. This was an elective induction of labor. She was given misoprostol this morning. She had 2 doses of misoprostol and there was shivam well on her own. At approximately 1847 hours the assistant professor of education performed an amniotomy and her contractions increased at that time. At the time of the amniotomy her cervix was 3 cm and 90% effaced. She was given an epidural after that. She followed a rather precipitous multiparous labor curve and was found to be complete with respect to cervical dilatation at 21 2000 hrs. The patient was having head compression at that time noted on the strip. She was shivam about every 2 to 3 minutes. Delivery summary: The patient reached complete with respect to cervical dilatation at 2120 hrs. on 04/14/2019. The fetus now is in a +2 station. She was having early decelerations into the 70s. The fetus however would recover. She began with expulsive Tory efforts at that time. She delivered a viable male over an intact perineum at 2136 hrs.After 1 minute the cord was doubly clamped and the father of the baby then cut the cord. The was crying lustily and moving all 4 limbs at this time and placed on the mother's chest. A sample of the cord blood was then obtained and sent for evaluation. The placenta was then delivered intact with 3 vessels spontaneously at 21 4000 hours. 30 units Pitocin IV drip were given at that time.The uterus was shivam down firmly. Inspection of the cervix and vaginal vault found them to be intact. There were 2 small abrasions noted on the labia minora bilaterally. These were minor and did not need suturing.Her lochia was quite light.Estimated blood loss was 100 mL's. Both the and the patient were allowed to remain in the LDRP both in stable condition.
[2019-04-14] MEDS: ACETAMINOPHEN 500 MG TABLET PO SCH (22:58)
[2019-04-14] MEDS: IBUPROFEN 600 MG TABLET PO SCH (22:59)
[2019-04-15] MEDS: ACETAMINOPHEN 500 MG TABLET PO SCH ×2 (08:42→16:26)
[2019-04-15] MEDS: POLYETHYLENE GLYCOL 3350 17 GM PACKET PO PRN (08:42)
[2019-04-15] MEDS: CITALOPRAM 10 MG TABLET PO SCH (08:42)
[2019-04-15] MEDS: DOCUSATE SODIUM 100 MG CAPSULE PO SCH ×2 (08:43→21:09)
[2019-04-15] MEDS: IBUPROFEN 600 MG TABLET PO SCH ×3 (08:43→21:09)
--- NOTE | 2019-04-15 09:15 | PROVIDER PROGRESS NOTE ---
Subjective - Prog Note Date Prog Note Date: 04/15/19 Prog Note Time: 09:12 - Subjective Subjective: The patient is doing well this morning. She did get some sleep last night. She did notes her lochia is moderate. She states her hemorrhoids are no worse today on before her delivery. Objective - Vital Signs/Intake & Output Reviewed Vital Signs: Yes Vital Signs: Vital Signs x48h Temp Pulse Resp BP Pulse Ox 04/15/19 08:40 81 16 139/74 H 98 04/15/19 02:00 36.5 C 66 18 111/66 Intake & Output: Intake & Output 04/12/19 04/13/19 04/14/19 04/15/19 23:59 23:59 23:59 23:59 Intake Total 1000 1000 Output Total 150 1050 Balance 850 -50 - Lab Results Fish Bones: 04/14/19 09:08 Other Labs: Lab Results x24hrs 04/14/19 Range/Units 09:08 WBC 14.8 H (4.8-10.8) x10^3/uL RBC 3.67 L (4.20-5.40) 10^6/uL Hgb 10.3 L (12.0-16.0) g/dL Hct 32.1 L (37.0-47.0) % MCV 87.5 (81.0-99.0) fL MCH 28.1 (27.0-31.0) pg MCHC 32.1 (32.0-36.0) g/dL RDW 13.8 (12.0-15.0) % Plt Count 286 (130-450) 10^3/uL MPV 12.0 H (7.9-10.8) fL Neut # (Auto) 9.8 H (1.5-6.6) 10^3/uL Lymph # (Auto) 3.2 (1.5-3.5) 10^3/uL [place]ett # (Auto) 1.4 H (0.0-1.0) 10^3/uL Eos # (Auto) 0.2 (0.0-0.7) 10^3/uL Baso # (Auto) 0.1 (0.0-0.1) 10^3/uL Absolute Nucleated RBC 0.00 x10^3/uL Nucleated RBC % 0.0 /100WBC - Other Results/Comments Other Results/Comments: Abdomen: The abdomen is soft, pliable and nontender.The uterus is firm and nontender 2 fingerbreadths below the umbilicus. Assessment/Plan - Problem List (1) Normal delivery at term Impression: day #1: Stable Plan: The patient will continue to recover today. As long she does well we will discharge her tomorrow.
[2019-04-16] MEDS: ACETAMINOPHEN 500 MG TABLET PO SCH ×2 (02:26→02:51)
[2019-04-16] MEDS: IBUPROFEN 600 MG TABLET PO SCH ×3 (02:51→09:11)
[2019-04-16] MEDS: POLYETHYLENE GLYCOL 3350 17 GM PACKET PO PRN (09:06)
[2019-04-16] MEDS: DOCUSATE SODIUM 100 MG CAPSULE PO SCH (09:08)
[2019-04-16] MEDS: CITALOPRAM 10 MG TABLET PO SCH (09:09)
--- NOTE | 2019-04-16 09:50 | PROVIDER PROGRESS NOTE ---
Subjective - Prog Note Date Prog Note Date: 04/16/19 Prog Note Time: 09:48 - Subjective Subjective: The patient is without complaint today. She is ambulating well and tolerating diet well. She is breast-feeding without difficulty. Hemorrhoids remain the same as before delivery. Objective - Vital Signs/Intake & Output Reviewed Vital Signs: Yes Vital Signs: Vital Signs x48h Temp Pulse Resp BP Pulse Ox 04/16/19 08:28 36.7 C 63 16 114/64 96 04/16/19 05:00 36.8 C 63 16 100/65 96 Intake & Output: Intake & Output 04/13/19 04/14/19 04/15/19 04/16/19 23:59 23:59 23:59 23:59 Intake Total 1000 1000 Output Total 150 1050 Balance 850 -50 - Objective General Appearance: positive: No acute distress, Alert Abdomen: positive: Non-tender (The uterus is firm and nontender about 1-2 fingerbreaths below the umbilicus.), No organomegaly, Nml bowel sounds, No distention - Lab Results Fish Bones: 04/14/19 09:08 Assessment/Plan - Problem List (1) Normal delivery at term Impression: day #2 - stable The patient will be discharged to home with both written and verbal instructions. Please refer to the dictated discharge summary.
[2019-04-16 17:15] VITALS: BP 106/71
--- NOTE | 2019-04-16 17:28 | Labor Flowsheet ---
Labor Flowsheet Datetime Report Generated by CPN: 04/16/2019 17:28 Datetime: 04/15/2019 20:01 VITAL SIGNS NBP Sys/Mehnaz/Mean (mmHg): 123 : 70 : 83 Pulse: 74 LaborFlag: Labor Datetime: 04/15/2019 03:20 SpO2 (%): 96 Datetime: 04/14/2019 21:27 STAGE 2 Pushing: Coached on Pushing Pushing Position: Pushing with Contractions Stage 2 Comments: Pushing with MD direction Datetime: 04/14/2019 21:20 VAGINAL EXAM Dilatation (cm): 10.0 Station: 2 Exam by: Dr. Pedro Datetime: 04/14/2019 21:01 Stage of : Labor Provider Reviewed Strip: No Strip Reviewed by: Rah COMMUNICATION Communication: Call/Page Placed to Provider Provider Notified (Name): Dr. Pedro Notification Reason: Status Update; Labor Status Communication Comments: Notified pt is now 7cm, has low baseline, and early decelerations to the 80 's. MD to come in. Datetime: 04/14/2019 21:00 ASSESSMENT A Monitor Mode: External US Monitor Interventions for FHR: Ultrasound Adjusted FHR Baseline Rate : 120 Variability: Marked >25 bpm Accelerations: 15X15 Decelerations: Late Actions for Decelerations: Side to Side; Oxygen Applied; Sterile Vaginal Exam; Provider Notif ied Category: Category II Oxygen Amount (LPM): 10 Oxygen Method: Non-Rebreather Datetime: 04/14/2019 20:52 Effacement (%): 100 I/O Interventions: Dodson Cath Inserted Datetime: 04/14/2019 20:30 UTERINE ACTIVITY Monitor Mode: External Monitor Interventions for UA: [place] Adjusted Frequency (min): 1-4 Quality: Strong Duration (sec): 60-90 Resting Tone (Palpate): Relaxed FHR Baseline Changes: No Baseline Change Comments: Low baseline with early decels noted Datetime: 04/14/2019 20:00 Patient Position/Activity: Left Tilt Datetime: 04/14/2019 19:53 Anesthesia Comments: Epidural complete. Pt lying left tilt Datetime: 04/14/2019 19:47 Epidural Positioning: Sitting Epidural Procedure: Test Dose Datetime: 04/14/2019 19:46 ANESTHESIA Anesthesia Plans: Epidural Datetime: 04/14/2019 19:41 Vaginal Bleeding: None Cervix, Consistency: Moderate Cervix, Position: Midposition Datetime: 04/14/2019 19:11 PROCEDURE TIME OUT Procedure Verify: Correct Patient Identity; Correct Side and Site are Marked; Accurate Procedure Co nsent Form; Agreement on Procedure to be Done; Correct Patient Position; Relevant Images and Results are Properly Labeled and Displayed; Addressed Need to Administer Antibiotics or Fluids for Irrigation ; Safety Precautions Based on Patient History or Medication Use Datetime: 04/14/2019 18:57 PATIENT CARE IV/Blood Work: IV Bolus Started Datetime: 04/14/2019 18:47 Membrane Status: Ruptured Membranes Rupture Method: Artificial Amniotic Fluid Color: Clear Amniotic Fluid Amount: Moderate Amniotic Fluid Odor: Normal Datetime: 04/14/2019 18:25 Pain Assessment Comments: in jacuzzi Comfort Measures: Hot Shower/Tub/Spa Datetime: 04/14/2019 18:02 PAIN Pain Scale: 4 Pain Presence: Intermittent Pain Type: Cramping Pain Location: Abdomen Pain Relief Measures: Comfort Measures Pain Coping: Breathing Through Contractions Datetime: 04/14/2019 17:30 Contraction Comments: [place] not tracing. Pt feeling nauseated and interacting with family at bedside Datetime: 04/14/2019 17:09 MEDICATIONS Antiemetics/Antacids: Zofran (mg) @ 4 Datetime: 04/14/2019 16:22 Patient Care Comments: IV flushed Datetime: 04/14/2019 16:19 Respirations: 18 Temperature (C): 36.7 Temperature Route: Oral Datetime: 04/14/2019 15:30 Pattern: Normal: <= 5 Contractions in 10 Minutes Datetime: 04/14/2019 14:48 Cervical Ripening Agents: Cytotec @ Datetime: 04/14/2019 10:29 MATERNAL ASSESSMENT Level of Consciousness: Fully Conscious DTR's/Clonus: DTRs 2+; No Clonus Headache: Denies Breath Sounds, Left: Clear and Equal Breath Sounds, Right: Clear and Equal Nausea/Vomiting: Hx of Nausea/Vomiting RUQ Epigastric Pain: Denies TEACHING Instructional Method: Verbal Plan of Care: Plan of Care Discussed; Vaginal Delivery Unit Routine: [place] to Room; Call Hernandez; Bed; Visiting Policy; Waiting Areas; Infant Security; Unit Personnel; Monitoring; IV Pumps; Safety/Fall Risk Prevention; Diet/Nutrition Services; Medicat ions Labor/Induction: Labor Stages; Cervical Ripening; Induction; Activity Pain Management: PRN Medications; Pain Scale/Goals; Comfort Measures Medications: Cervical Ripening Related: Maternal Emotional Changes
--- NOTE | 2019-04-16 17:56 | DISCHARGE SUMMARY ---
Physician: Manuel Vasquez DO DATE OF ADMISSION: 04/16/2019 DATE OF DISCHARGE: 04/16/2019 ADMITTING DIAGNOSES 1. Intrauterine at 39-weeks, 1-day gestation. 2. Elective induction of labor. 3. Hemorrhoids. DISCHARGE DIAGNOSES 1. Delivery at 39-weeks, 1-day gestation. 2. Hemorrhoids. PROCEDURES 1. Misoprostol induction of labor. 2. Spontaneous-assisted vaginal delivery. LABORATORIES: Admit CBC revealed WBCs of 14.8, RBCs of 3.67, hemoglobin at 10.3, hematocrit of 32.1 w ith 286 platelets. HOSPITAL COURSE: Patient was admitted to the labor and delivery floor on 04/14/2019 by the nurse staff certified nurse midwife for an elective induction of labor. She had been given misoprostol to ripen her cervix. Late i n the afternoon, her cervix was found to be 3 cm dilated, and the nurse plant custodian ruptured her membrane s at that time. She began shivam quite nicely, and a category 1 EFM was noted. She went on to be complete over the next 16 minutes. One is referred to the delivery note for full details. She had had problems with thrombosed hemorrhoids prior to delivery. These had cleared. It is of not e that the hemorrhoids were unchanged in appearance from before delivery to after delivery. On her f irst day, she was doing well. On her second day, she continued to do well. Vi leah signs were stable. She was afebrile. Lochia was light. She was ambulating well and tolerating diet well. The uterus was firm, 2 fingerbreadths below the umbilicus. It was nontender. The patien t was anxious for discharge. It was felt that patient could be safely discharged to home. DISCHARGE INSTRUCTIONS: Patient was discharged to home with both written and verbal instructions, wh ich included such things as: 1. She is to forego any lifting, tampons, douching, or intercourse. 2. She is to report any temperatures greater than 100.4 or heavy vaginal bleeding. 3. She is not to drive a car for the next 2 weeks. 4. She is to continue her vitamins and increase her fluids. 5. It is recommended that she continue her Colace, as she has been doing 100 mg p.o. b.i.d. for the hemorrhoids. 6. She will continue her usual home medications. 7. She will use ibuprofen 600 mg p.o. t.i.d. as her first line of pain control. 8. She can take a shower or tub bath. 9. As long as she does well, she will be seen in the office in 1 week. She will call sooner, angela young if she has problems. TD: 04/16/2019 10:05
== END 2019-04-16 12:50 | disposition home or self-care (01) | DRG 807 ==
LOC: WFO 06:25 → FBP 06:30 → WFO 07:21 → FBP 07:22 → OBSVTOIN 04-16 04:06
PROVIDERS: ADMIT Nurse Practitioner Obstetrics & Gynecology; ATTEND Obstetrics & Gynecology
PROC: 10E0XZZ Delivery of Products of Conception, External Approach (ICD-10-PCS; principal; 2019-04-14)
PROC: 10907ZC Drainage of Amniotic Fluid, Therapeutic from Products of Conception, Via Natural or Artificial Opening (ICD-10-PCS; 2019-04-14)
DX: O22.43 Hemorrhoids in pregnancy, third trimester (principal); Z37.0 Single live birth; Z3A.39 39 weeks gestation of pregnancy; O99.344 Other mental disorders complicating childbirth; F41.9 Anxiety disorder, unspecified; F32.9 Major depressive disorder, single episode, unspecified; O77.0 Labor and delivery complicated by meconium in amniotic fluid; O62.3 Precipitate labor; O76 Abnormality in fetal heart rate and rhythm complicating labor and delivery; O71.82 Other specified trauma to perineum and vulva; Z87.891 Personal history of nicotine dependence; Z79.899 Other long term (current) drug therapy
CPT/HCPCS: 85025; A9270; G0378; J7120; J8499

== ENCOUNTER 2019-08-01 16:15 | Emergency (ER) | payer BC, OTHER ==
--- NOTE | 2019-08-01 16:59 | ED Physician Documentation ---
History of Present Illness - Stated complaint Stated Complaint: SORE THROAT, HEAD/BODY ACHES - Chief complaint Chief Complaint: Fever - History obtained from History obtained from: Patient - History of Present Illness Timing: How many days ago (2) Pain level max: 5 Pain level now: 4 - Additonal information Additional information: 23-year-old female presents to the emergency department complaint of a sore throat for the past 2 to 3 days. She is also been more fatigued than usual. Subjective fevers at home. No significant coughing. Worse with eating and drinking. Better with rest. She states she just feels tired. 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 : None HEENT: None Psych: Depression, Anxiety Musculoskeletal: None Derm: None - Past Surgical History Past Surgical History: No General: Other - Present Medications Home Medications: Ambulatory Orders Medication Instructions Recorded Confirmed Albuterol Sulf [Ventolin Hfa 1 - 2 puffs INH Q4HR PRN #1 inhaler 09/05/18 Inhaler] oxyCODONE [Roxicodone] 5 mg PO Q4HR PRN #14 tablet 01/23/19 - Allergies Allergies/Adverse Reactions: Allergies Allergy/AdvReac Type Severity Reaction Status Date / Time prednisone AdvReac Anxiety Verified 08/01/19 16:43 - Social History Does the pt smoke?: No Smoking Status: Current every day smoker Does the pt drink ETOH?: No Does the pt have substance abuse?: No - Immunizations Immunizations are current?: Yes - POLST Patient has POLST: No PD ED PE NORMAL - Vitals Vital signs reviewed: Yes - General General: Alert and oriented X 3, No acute distress, Well developed/nourished - HEENT HEENT: PERRL, Ears normal, Moist mucous membranes, Other (Posterior pharyngeal erythema without tonsillar exudates. Uvula midline. Normal phonation. No trismus.) - Neck Neck: Supple, no meningeal sign, Other (Shotty anterior lymphadenopathy) - Cardiac Cardiac: RRR - Respiratory Respiratory: No respiratory distress, Clear bilaterally - Abdomen Abdomen: Soft, Non tender, Non distended - Derm Derm: Warm and dry, No rash - Extremities Extremities: No edema - Neuro Neuro: Alert and oriented X 3 - Psych Psych: Normal mood, Normal affect Results - Vitals Vitals: Vital Signs - 24 hr 08/01/19 08/01/19 16:43 16:58 Temperature 37.3 C 37.2 C Heart Rate 109 H 97 Respiratory 17 18 Rate Blood Pressure 117/83 H 115/100 H O2 Saturation 99 97 Oxygen O2 Source Room air - Labs Labs: Laboratory Tests 08/01/19 08/01/19 08/01/19 17:00 17:00 17:04 Infectious [place] Assay NEGATIVE Influenza A (Rapid) Negative Influenza B (Rapid) Negative Group A Strep Rapid Negative PD MEDICAL DECISION MAKING - ED course Complexity details: reviewed results, re-evaluated patient, considered differential, d/w patient ED course: Patient with what appears to be a viral syndrome. Negative influenza. Negative strep. Negative mono. We will continue supportive care at home and follow-up with her doctor. No evidence of pneumonia. No evidence of sepsis. Patient counseled regarding signs and symptoms for which I believe and urgent re- evaluation would be necessary. Patient with good understanding of and agreement to plan and is comfortable going home at this time This document was made in part using voice recognition software. While efforts are made to proofread this document, sound alike and grammatical errors may occur. Departure - Departure Disposition: 01 Home, Self Care Clinical Impression: Viral syndrome Condition: Good Instructions: ED Viral Syndrome Follow-Up: your,doctor in 1 week if not better [Other] Comments: Drink plenty of fluids and rest. Return if you worsen. Your influenza, mono and strep test are negative. Forms: Activity restrictions Discharge Date/Time: 08/01/19 17:56
[2019-08-01 17:01] VITALS: BP 115/100
[2019-08-01 17:20] LABS: RAPID STREP SCREEN Negative (Negative)
== END 2019-08-01 17:56 | disposition home or self-care (01) ==
LOC: ED 16:15
DX: B34.9 Viral infection, unspecified (principal); F17.200 Nicotine dependence, unspecified, uncomplicated
CPT/HCPCS: 86308; 87070; 87275; 87276; 87430; 99283; 99284

== ENCOUNTER 2020-01-03 18:27 | Outpatient (CLI) | payer BC, OTHER | END 2020-01-03 23:59 | disposition home or self-care (01) | LOC: MERGE 18:27 → LAB 18:27 | PROVIDERS: ATTEND Physician Assistant Medical | DX: Z20.828 Contact with and (suspected) exposure to other viral communicable diseases (principal); B97.89 Other viral agents as the cause of diseases classified elsewhere | CPT/HCPCS: 81599; 87275; 87276 ==

== ENCOUNTER 2020-04-04 08:00 | Outpatient (CLI) | payer BC, OTHER | END 2020-04-04 23:59 | disposition home or self-care (01) | LOC: LAB.R 08:00 | PROVIDERS: ATTEND Physician Assistant Medical | DX: Z20.828 Contact with and (suspected) exposure to other viral communicable diseases (principal) ==

== ENCOUNTER 2020-06-19 13:40 | Outpatient (CLI) | payer BC, OTHER | END 2020-06-19 13:41 | disposition home or self-care (01) | LOC: LAB.N 13:40 | PROVIDERS: ATTEND Nurse Practitioner Obstetrics & Gynecology | DX: Z32.00 Encounter for pregnancy test, result unknown (principal) | CPT/HCPCS: 36415; 84702 ==

== ENCOUNTER 2021-06-11 07:40 | Outpatient (CLI) | payer BC, OTHER ==
[2021-06-12 09:35] LABS: CLARITY,URINE CLOUDY (CLEAR); LEUKOCYTE ESTERASE, URINE NEGATIVE (NEGATIVE); NITRITE,URINE NEGATIVE (NEGATIVE); OCCULT BLOOD,URINE NEGATIVE (NEGATIVE); PROTEIN,URINE NEGATIVE (NEGATIVE); UROBILINOGEN,URINE 0.2 (NORMAL) E.U./dL (NORMAL)
[2021-06-12 09:36] LABS: BILIRUBIN,URINE NEGATIVE (NEGATIVE); GLUCOSE, URINE (UA) NEGATIVE (NEGATIVE); KETONES,URINE (UA) NEGATIVE (NEGATIVE); RBC,URINE 0-5 /HPF (0-5); WBC,URINE 0-3 /HPF (0-5)
[2021-06-12 09:37] LABS: AMORPHOUS SEDIMENT,UR Moderate /LPF; BACTERIA,URINE Few /HPF (None Seen); MUCUS,URINE Few Strands; SQUAMOUS EPITHELIAL CELL,UR FEW Squamous (<= Few)
== END 2021-06-11 07:41 ==
LOC: LAB.R 07:40
PROVIDERS: ATTEND Nurse Practitioner Obstetrics & Gynecology
DX: Z32.01 Encounter for pregnancy test, result positive (principal)
CPT/HCPCS: 81001; 87086

== ENCOUNTER 2021-06-25 15:13 | Outpatient (CLI) | payer BC, OTHER ==
[2021-06-25 17:57] LABS: BASOPHILS # (AUTO) 0.1 10^3/uL (0.0-0.1); BASOPHILS % (AUTO) 0.6 %; EOSINOPHILS # (AUTO) 0.2 10^3/uL (0.0-0.7); EOSINOPHILS % (AUTO) 1.5 %; LYMPHOCYTES # (AUTO) 3.5 10^3/uL (1.5-3.5); LYMPHOCYTES % (AUTO) 23.8 %; MEAN CORPUSCULAR HEMOGLOBIN 28.2 pg (27.0-31.0); MEAN CORPUSCULAR HGB CONC 32.4 g/dL (32.0-36.0); MEAN CORPUSCULAR VOLUME 87.1 fL (81.0-99.0); MEAN PLATELET VOLUME 10.7 fL (7.9-10.8); MONOCYTES # (AUTO) 1.1 10^3/uL (0.0-1.0); MONOCYTES % (AUTO) 7.3 %; NEUTROPHILS # (AUTO) 9.8 10^3/uL (1.5-6.6); NEUTROPHILS % (AUTO) 66.5 %; PLT - PLATELET COUNT 440 10^3/uL (130-450); RED BLOOD COUNT 4.25 10^6/uL (4.20-5.40); RED CELL DISTRIBUTION WIDTH 13.3 % (12.0-15.0); WHITE BLOOD COUNT 14.8 x10^3/uL (4.8-10.8)
[2021-06-25 18:03] LABS: BILIRUBIN,URINE NEGATIVE (NEGATIVE); GLUCOSE, URINE (UA) NEGATIVE (NEGATIVE); KETONES,URINE (UA) TRACE mg/dL (NEGATIVE); LEUKOCYTE ESTERASE, URINE NEGATIVE (NEGATIVE); NITRITE,URINE NEGATIVE (NEGATIVE); OCCULT BLOOD,URINE NEGATIVE (NEGATIVE); PROTEIN,URINE NEGATIVE (NEGATIVE); UROBILINOGEN,URINE 0.2 (NORMAL) E.U./dL (NORMAL)
[2021-06-25 18:22] LABS: CLARITY,URINE CLEAR (CLEAR)
[2021-06-25 18:27] LABS: BACTERIA,URINE Few /HPF (None Seen); MUCUS,URINE Moderate Strands; RBC,URINE 0-5 /HPF (0-5); SQUAMOUS EPITHELIAL CELL,UR MOD Squamous (<= Few); WBC,URINE 0-3 /HPF (0-5)
[2021-06-26 11:16] LABS: HEPATITIS C ANTIBODY NON-REACTIVE (NON-REACTIVE)
[2021-06-26 11:36] LABS: HEPATITIS B SURFACE ANTIGEN NON-REACTIVE (NON-REACTIVE)
[2021-06-26 14:31] LABS: HIV AG/AB 4TH GEN NON-REACTIVE (NON-REACTIVE)
== END 2021-06-25 15:14 | disposition home or self-care (01) ==
LOC: LAB.N 15:13
PROVIDERS: ATTEND Nurse Practitioner Obstetrics & Gynecology
DX: Z36.89 Encounter for other specified antenatal screening (principal); Z32.01 Encounter for pregnancy test, result positive
CPT/HCPCS: 36415; 81001; 85025; 86592; 86762; 86787; 86803; 86850; 86900; 86901; 87086; 87340; 87389

== ENCOUNTER 2021-06-26 14:42 | Outpatient (CLI) | payer BC, OTHER ==
--- NOTE | 2021-06-26 17:04 | Ultrasound Report ---
PROCEDURE: OB First Trimester INDICATIONS: + PREG TEST OUTSIDE/PRIOR DATING DATA: Last menstrual period (LMP): 04/20/2021. LMP-based estimated date of delivery (ABRAM): 01/25/2022. First dating scan (date and location): 06/26/2021, current study. Estimated date of delivery (ABRAM) from first dating scan: 01/26/2022. The below data below was generated using the first trimester ultrasound ABRAM of 01/26/2022 TECHNIQUE: Real-time scanning was performed of the fetus and maternal pelvic organs, with image documentation. COMPARISON: None during this FINDINGS: Embryo: There is a single pole with an average crown-rump length of 2.68 cm which corresponds to a 9 week 3 day +/- 6 day gestation. There is detectable cardiac activity at a rate of 173 beats pe r minutes. A normal size yolk sac and unfused amnion are identified. Heart rate: 173 Measurement variability in dating: +/- 4 weeks by LMP, +/- 7 days by mean sac diameter (use before 6 weeks gestation if crown-rump length not able to be measured), +/- 5 days by crown-rump length (6-12 weeks gestation). Maternal organs: The cervix is closed. The uterus is anteverted. There are 2 small areas of subchori onic hemorrhage measuring 2.6 x 1.0 x 2.3 cm, and 2.0 x 1.1 x 2.0 cm. Both ovaries appear normal. The re is a corpus luteum in the right ovary. IMPRESSION: 1. Single living intrauterine with a gestational age by crown-rump length of 9 weeks 3 days +/- 6 days, consistent with clinical dates. 2. Small subchorionic hemorrhages, likely implantation bleed. Closed cervix. Reviewed by: Paige Harrington MD on 06/26/2021 5:02 PM PST Approved by: Paige Harrington MD on 06/26/2021 5:02 PM PST Station ID: [id number]
== END 2021-06-26 14:43 | disposition home or self-care (01) ==
LOC: DI 14:42
PROVIDERS: ATTEND Nurse Practitioner Obstetrics & Gynecology
DX: O20.8 Other hemorrhage in early pregnancy (principal); Z3A.09 9 weeks gestation of pregnancy

== ENCOUNTER 2021-07-03 17:38 | Emergency (ER) | payer BC, OTHER ==
--- NOTE | 2021-07-03 18:57 | ED Physician Documentation ---
History of Present Illness - Stated complaint Stated Complaint: PX IN REAR - Chief complaint Chief Complaint: General - History obtained from History obtained from: Patient - History of Present Illness Timing: Today Pain level max: 8 Pain level now: 8 - Additonal information Additional information: Patient is a 25-year-old female who presents to the emergency department with rectal pain today. She states similar to prior hemorrhoids. Nothing makes it better or worse. Patient is 10 weeks . 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 : None HEENT: None Psych: Depression, Anxiety Musculoskeletal: None Derm: None - Past Surgical History Past Surgical History: No General: Other - Present Medications Home Medications: Ambulatory Orders Medication Instructions Recorded Confirmed Albuterol Sulf [Ventolin Hfa 1 - 2 puffs INH Q4HR PRN #1 inhaler 09/05/18 Inhaler] oxyCODONE [Roxicodone] 5 mg PO Q4HR PRN #14 tablet 01/23/19 Docusate Sodium 250Mg Capsule 250 mg PO DAILY #30 cap 07/03/21 [Colace 250Mg Capsule] Hydrocortisone [Anusol-Hc] 30 gm RC BID #30 gm 07/03/21 Oxycodone HCl/Acetaminophen 1 - 2 each PO Q6H PRN #14 tablet 07/03/21 [Percocet 5-325 mg Tablet] polyethylene glycoL 3350 [Miralax] 17 gm PO DAILY #238 gm 07/03/21 - Allergies Allergies/Adverse Reactions: Allergies Allergy/AdvReac Type Severity Reaction Status Date / Time prednisone AdvReac Anxiety Verified 07/03/21 17:51 - Social History Does the pt smoke?: No Smoking Status: Current every day smoker Does the pt drink ETOH?: No Does the pt have substance abuse?: No - Immunizations Immunizations are current?: Yes - POLST Patient has POLST: No PD ED PE NORMAL - Vitals Vital signs reviewed: Yes - General General: Alert and oriented X 3, No acute distress - HEENT HEENT: Moist mucous membranes - Neck Neck: Supple, no meningeal sign - Cardiac Cardiac: RRR, Strong equal pulses - Respiratory Respiratory: No respiratory distress, Clear bilaterally - Abdomen Abdomen: Soft, Non tender, Non distended - Rectal Rectal: Other (inflammed external hemorrhoids, no thrombosis. ) - Derm Derm: Warm and dry - Neuro Neuro: Alert and oriented X 3 - Psych Psych: Normal mood, Normal affect Results - Vitals Vitals: Vital Signs - 24 hr 07/03/21 07/03/21 07/03/21 17:51 17:56 19:12 Temperature 36.5 C 36.5 C Heart Rate 86 86 90 Respiratory 16 16 16 Rate Blood Pressure 116/63 116/63 122/74 O2 Saturation 98 98 99 Oxygen O2 Source Room air PD MEDICAL DECISION MAKING - ED course Complexity details: considered differential, d/w patient ED course: 25-year-old female with inflamed but not thrombosed hemorrhoids. We will place on Anusol HC for home. Stool softeners. We will have her follow-up with her doctor for further care. Patient counseled regarding signs and symptoms for which I believe and urgent re-evaluation would be necessary. Patient with good understanding of and agreement to plan and is comfortable going home at this time This document was made in part using voice recognition software. While efforts are made to proofread this document, sound alike and grammatical errors may occur. I am prescribing a short course of short-acting opioid pain medication for this patient. 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 I have discussed that the opioids are for short term therapy only, and will not be refilled from the ED. Departure - Departure Disposition: 01 Home, Self Care Clinical Impression: External hemorrhoid Condition: Good Instructions: ED Hemorrhoids Follow-Up: MANJULA DUBON ARNP [Primary Care Provider] - Within 1 week Prescriptions: Hydrocortisone [Anusol-Hc] 30 gm RC BID #30 gm Docusate Sodium 250Mg Capsule [Colace 250Mg Capsule] 250 mg PO DAILY #30 cap polyethylene glycoL 3350 [Miralax] 17 gm PO DAILY #238 gm Oxycodone HCl/Acetaminophen [Percocet 5-325 mg Tablet] 1 - 2 each PO Q6H PRN #14 tablet PRN Reason: pain Comments: Patient is a 25-year-old female who presents to the emergency department withYou appear to have several inflamed external hemorrhoids today. They are not thrombosed. I would recommend that you follow-up with your doctor for further care. They can refer you to a surgeon for further care. Your prescriptions were sent to [facility] in [place]. I am prescribing a short course of narcotic pain medication for you. These are potentially dangerous and addictive medications that should be used carefully. These medications may constipate you. Take an vfrp-von-ycayvhv stool softener (docusate) twice daily with plenty of water while taking these medications. If you go 24 hours without a bowel movement, take xorj-zaa-fxlifde miralax, per package instructions. Do not drink or drive while taking these medications. If you received narcotic or sedating medications while in the emergency department, do not drive for 24 hours. Store this medication in a safe, secure place and out of reach of children. It is a violation of federal law to give or sell this medication to another person or to use in a manner other than prescribed. The ED will not refill narcotic prescriptions, including prescriptions lost or stolen. To dispose of unwanted medications: 1. [facility] at [address] in [place] has a medication drop box. They accept prescription medications (in pill form) Wednesday through Wednesday 9:00 a.m. to 5:00 p.m. 2. [facility] [employer] [facility] accepts prescription medications (in pill form only) for disposal year round. Call for more information. 3. Contact the [facility] for the next [facility] sponsored prescription drug collection event. , [phone], or [phone]; Discharge Date/Time: 07/03/21 19:16
[2021-07-03 19:13] VITALS: BP 122/74
[2021-07-03] MEDS ORDERED: ALBUTEROL NEB 2.5 MG/3 ML INH ONE (19:56)
== END 2021-07-03 19:16 | disposition home or self-care (01) ==
LOC: ED 17:38
DX: K64.4 Residual hemorrhoidal skin tags (principal); F17.200 Nicotine dependence, unspecified, uncomplicated
CPT/HCPCS: 99283; 99284

== ENCOUNTER 2021-07-09 08:00 | Outpatient (CLI) | payer BC, OTHER ==
[2021-07-09 20:54] LABS: CHLAMYDIA TRACHOMATIS DNA NEGATIVE (NEGATIVE); NEISSERIA GONORRHOEAE DNA NEGATIVE (NEGATIVE); TRICHOMONAS VAGINALIS DNA NEGATIVE (NEGATIVE)
== END 2021-07-09 23:59 ==
LOC: LAB 08:00
PROVIDERS: ATTEND Nurse Practitioner Obstetrics & Gynecology
DX: Z11.3 Encounter for screening for infections with a predominantly sexual mode of transmission (principal)
CPT/HCPCS: 87491; 87591; 87661

== ENCOUNTER 2021-07-10 16:04 | Outpatient (CLI) | payer BC, OTHER ==
[2021-07-10] MEDS ORDERED: LACTATED RINGERS 1,000 ML IV ONE (16:11)
[2021-07-10 16:47] VITALS: BP 125/77
[2021-07-10 17:09] LABS: CALCIUM 9.3 mg/dL (8.5-10.3); CREATININE 0.5 mg/dL (0.4-1.0); POTASSIUM 3.8 mmol/L (3.5-5.0)
--- NOTE | 2021-07-10 17:09 | PROVIDER PROGRESS NOTE ---
- HPI Chief Complaint: Hyperemesis Current : Vital Signs Temperature 99.1 F 07/10/21 16:46 Heart Rate 99 07/10/21 16:46 Respiratory Rate 18 07/10/21 16:46 Blood Pressure 125/77 07/10/21 16:46 O2 Saturation 100 07/10/21 16:46 - Procedures NST Procedure: NST Procedure Stop Time 11:30 - Plan Plan: Patient is a 25-year-old -0-0-2 at 11 weeks 4 days gestation presenting to triage for recurrent nausea with vomiting. No leaking or bleeding. She denies headache, right upper quadrant pain, changes in vision. She says she vomits from 2-6 times a day depending on when she eats. She skipped lunch today and has not vomited since this morning. She is overall in good spirits and has come to terms with this as her last 2 pregnancies were gated by significant nausea and vomiting throughout the . She also suffered some constipation, and with her last she had severe hemorrhoids and is worried about thrombosing. She has been doing well with her constipation and bowel habits, although she does say she is experiencing worsening hemorrhoids with the vomiting. Fitness water, and smoothies for breakfast. She seems to be remaining hydrated despite the significant vomiting. Most recent weight was 156, unchanged from 1 month prior. In fact she has remained within a few pounds over the last several years since her last . Past medical history Anemia Anxiety Asthma headaches Past surgical history Meniscus repair Family history Father: Alcoholism, anxiety, depression, diabetes, kidney disease Brother: Anxiety, depression, suicide Mother: Weight disorder, arthritis, hypothyroidism Maternal grandmother: Breast cancer Social history Previous smoker, no current alcohol or drugs. Physical Constitutional: alert, no acute distress, well hydrated, well developed, well nourished, appropriate dress. Skin: normal turgor, normal color. Head: atraumatic, normocephalic. Cardiovascular: RRR. Respiratory: no respiratory distress. Abdomen: nondistended, nontender. Spine: normal mobility. Neurologic: normal, sensation intact, motor intact. Psych: affect and mood appropriate, normal interaction, good eye contact. heart tones: 160 by doppler. Labs: UA: Specific gravity: 1.01 BMP: Unremarkable. Assessment and plan 25-year-old -0-0-2 at 11 weeks 4 days gestation with nausea and vomiting of 1. Nausea vomiting of -UA was remarkable for concentrated urine previously in office, but normal today, although patient could not void until after some hydration. BMP within normal limits. -Trying to get ahead of nausea and vomiting, patient received a 500 mL bolus that in the remainder liter and maintenance fluids. -Does not meet diagnosis of hyperemesis gravidarum as she has not had significant weight loss. The profound nature of her nausea and vomiting may eventually progress to significant weight loss. We did discuss the importance of remaining hydrated as that is the most important issue at this stage in . As her weight is not changed in the last month, she is likely getting adequate nutrition from this. -Currently taking ondansetron and metoclopramide. -Also started doxylamine nightly and B6 in the morning. Encouraged to increase B6 to 3 times daily dosing. Can try doxylamine in the morning as well, although with the metoclopramide, this may make her too tired. -Tolerated IV hydration and kept crackers down. Will encourage small, frequent meals as well as continued hydration. -Although the nausean and vomiting is frustrating, she seems to be tolerating it well. -Discharged in good condition. 2. 11-weeks
[2021-07-10 18:55] LABS: BILIRUBIN,URINE NEGATIVE (NEGATIVE); GLUCOSE, URINE (UA) NEGATIVE (NEGATIVE); KETONES,URINE (UA) NEGATIVE (NEGATIVE); LEUKOCYTE ESTERASE, URINE NEGATIVE (NEGATIVE); NITRITE,URINE NEGATIVE (NEGATIVE); OCCULT BLOOD,URINE NEGATIVE (NEGATIVE); PROTEIN,URINE NEGATIVE (NEGATIVE); UROBILINOGEN,URINE 0.2 (NORMAL) E.U./dL (NORMAL)
[2021-07-10 19:04] LABS: CLARITY,URINE CLEAR (CLEAR)
== END 2021-07-10 19:15 | disposition home or self-care (01) ==
LOC: WFO 16:04 → FBP 16:05 → WFO 19:15
PROVIDERS: ATTEND Obstetrics & Gynecology
DX: O21.9 Vomiting of pregnancy, unspecified (principal); Z3A.11 11 weeks gestation of pregnancy; Z87.891 Personal history of nicotine dependence
CPT/HCPCS: 80048; 81003; 99213; J7120; 81001; 87086

== ENCOUNTER 2021-07-15 08:54 | Emergency (ER) | payer BC, OTHER ==
--- NOTE | 2021-07-15 09:27 | ED Physician Documentation ---
PD HPI NVD - Stated complaint Stated Complaint: N/V/D - Chief complaint Chief Complaint: Abd Pain - History obtained from History obtained from: Patient - History of Present Illness Timing - onset: How many days ago (3) Timing - duration: Days (3) Timing - details: Abrupt onset, Still present Associated symptoms: No: Fever, Abdominal pain Contributing factors: Sick contact (son sick with similar has recovered) Improved by: Vomiting, BM Similar symptoms before: Diagnosis (gastroenteritis) Recently seen: Clinic, Emergency Dept - Additonal information Additional information: 25-year-old female who is 12 weeks has a history of hyperemesis gravidarum with each of her pregnancies that lasted through the entire . She has been getting fluids in the clinic and over this weekend she has developed acute diarrhea associated with increased nausea and vomiting. She usually vomits about 6 times per day with her and she is able to hold her own with her fluids usually. She has recently required intravenous fluids. She has now developed diarrhea nonbloody and significant. With this she has developed increased vomiting. She is on Reglan and Zofran. She is feeling weak. She has a son who was recently ill with GI symptoms and recovered after about 3 days. The patient is on her 3rd day of illness and feels worse. Review of Systems Constitutional: reports: Fatigue. denies: Fever, Chills Eyes: denies: Decreased vision Ears: denies: Ear pain Nose: denies: Rhinorrhea / runny nose, Congestion Throat: denies: Sore throat Cardiac: denies: Chest pain / pressure, Palpitations Respiratory: denies: Dyspnea, Cough GI: reports: Nausea, Vomiting, Diarrhea. denies: Abdominal Pain : denies: Dysuria, Frequency Skin: denies: Rash Musculoskeletal: denies: Neck pain, Back pain, Extremity pain Neurologic: reports: Generalized weakness. 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 : None HEENT: None Psych: Depression, Anxiety Musculoskeletal: None Derm: None - Past Surgical History Past Surgical History: No General: Other - Present Medications Home Medications: Ambulatory Orders Medication Instructions Recorded Confirmed Doxylamine Succinate [Unisom] 25 mg PO HS 07/15/21 07/15/21 Metoclopramide [Reglan] 10 mg PO Q6H PRN 07/15/21 07/15/21 Ondansetron Odt [Zofran Odt] 4 mg TL Q6H PRN 07/15/21 07/15/21 Pyridoxine HCl (Vitamin B6) 100 mg PO TID 07/15/21 07/15/21 [Vitamin B6] - Allergies Allergies/Adverse Reactions: Allergies Allergy/AdvReac Type Severity Reaction Status Date / Time prednisone AdvReac Anxiety Verified 07/15/21 09:01 - Social History Does the pt smoke?: No Smoking Status: Current every day smoker Does the pt drink ETOH?: No Does the pt have substance abuse?: No - Immunizations Immunizations are current?: Yes - POLST Patient has POLST: No PD ED PE NORMAL - Vitals Vital signs reviewed: Yes (tachy ) - General General: Alert and oriented X 3, No acute distress, Well developed/nourished - HEENT HEENT: Atraumatic, PERRL, EOMI - Neck Neck: Supple, no meningeal sign, No bony TTP - Cardiac Cardiac: No murmur, Other (tachy ) - Respiratory Respiratory: No respiratory distress, Clear bilaterally - Abdomen Abdomen: Normal bowel sounds, Soft, Non tender, Non distended, No organomegaly - Back Back: No CVA TTP, No spinal TTP - Derm Derm: Normal color, Warm and dry, No rash - Extremities Extremities: No deformity, No edema - Neuro Neuro: Alert and oriented 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5 RDW 13.2 Plt Count 451 H MPV 10.2 Neut # (Auto) 8.9 H Lymph # (Auto) 2.6 [place] # (Auto) 0.9 Eos # (Auto) 0.2 Baso # (Auto) 0.1 Absolute Nucleated RBC 0.00 Nucleated RBC % 0.0 Sodium 136 Potassium 3.3 L Chloride 103 Carbon Dioxide 23 Anion Gap 10.0 BUN 9 Creatinine 0.5 Estimated GFR (MDRD) 150 Glucose 100 Calcium 9.4 Total Bilirubin 0.8 AST 17 ALT 17 Alkaline Phosphatase 49 Total Protein 7.9 Albumin 4.0 Globulin 3.9 Albumin/Globulin Ratio 1.0 Lipase 25 Urine Color YELLOW Urine Clarity CLEAR Urine pH 6.0 Ur Specific [place] 1.025 Urine Protein NEGATIVE Urine Glucose (UA) NEGATIVE Urine Ketones NEGATIVE Urine Occult Blood NEGATIVE Urine Nitrite NEGATIVE Urine Bilirubin NEGATIVE Urine Urobilinogen 0.2 (NORMAL) Ur Leukocyte Esterase NEGATIVE Ur Microscopic Review NOT INDICATED Urine Culture Comments NOT INDICATED Procedures - Bedside sono Bedside sono by EMP: With use bedside ultrasound the fetus is imaged it is active and easily visualized heart beat. Measurements and rates are not calculated - IVC sono (time) 0920 Bedside IVC sono: IVC measures (cm) (0.71), Dehydration (est 2-3 liter deficit) PD MEDICAL DECISION MAKING - ED course Complexity details: reviewed results, re-evaluated patient, considered differential, d/w patient ED course: 25-year-old female with a history of hyperemesis gravidarum has now developed a gastrointestinal illness as well on top of this and she is dehydrated more significantly than usual. She is administered intravenous fluids. Departure - Departure Disposition: 01 Home, Self Care Clinical Impression: Gastroenteritis, Hyperemesis gravidarum Condition: Stable Instructions: ED Gastroenteritis Viral, ED Preg Morning Sickness Follow-Up: MANJULA DUBON ARNP [Primary Care Provider] -
[2021-07-15] MEDS ORDERED: SODIUM CHLORIDE 0.9% 1,000 ML IV STA ×2 (09:48→10:38)
[2021-07-15 09:53] LABS: BASOPHILS # (AUTO) 0.1 10^3/uL (0.0-0.1); BASOPHILS % (AUTO) 0.6 %; EOSINOPHILS # (AUTO) 0.2 10^3/uL (0.0-0.7); EOSINOPHILS % (AUTO) 1.5 %; HCT - HEMATOCRIT 39.7 % (37.0-47.0); HGB - HEMOGLOBIN 13.3 g/dL (12.0-16.0); LYMPHOCYTES # (AUTO) 2.6 10^3/uL (1.5-3.5); LYMPHOCYTES % (AUTO) 20.7 %; MEAN CORPUSCULAR HEMOGLOBIN 28.9 pg (27.0-31.0); MEAN CORPUSCULAR HGB CONC 33.5 g/dL (32.0-36.0); MEAN CORPUSCULAR VOLUME 86.1 fL (81.0-99.0); MEAN PLATELET VOLUME 10.2 fL (7.9-10.8); MONOCYTES # (AUTO) 0.9 10^3/uL (0.0-1.0); MONOCYTES % (AUTO) 6.9 %; NEUTROPHILS # (AUTO) 8.9 10^3/uL (1.5-6.6); NEUTROPHILS % (AUTO) 70.1 %; PLT - PLATELET COUNT 451 10^3/uL (130-450); RED BLOOD COUNT 4.61 10^6/uL (4.20-5.40); RED CELL DISTRIBUTION WIDTH 13.2 % (12.0-15.0); WHITE BLOOD COUNT 12.7 x10^3/uL (4.8-10.8)
[2021-07-15 10:00] LABS: BILIRUBIN,TOTAL 0.8 mg/dL (0.2-1.0); CALCIUM 9.4 mg/dL (8.5-10.3); CREATININE 0.5 mg/dL (0.4-1.0); POTASSIUM 3.3 mmol/L (3.5-5.0); TOTAL PROTEIN 7.9 g/dL (6.7-8.2)
[2021-07-15] MEDS ORDERED: POTASSIUM CHLORIDE 20 MEQ TABLET PO STA (10:08)
[2021-07-15] MEDS ORDERED: ONDANSETRON 4 MG/2 ML VIAL IVP STA (10:22)
[2021-07-15 10:26] LABS: BILIRUBIN,URINE NEGATIVE (NEGATIVE); GLUCOSE, URINE (UA) NEGATIVE (NEGATIVE); KETONES,URINE (UA) NEGATIVE (NEGATIVE); LEUKOCYTE ESTERASE, URINE NEGATIVE (NEGATIVE); NITRITE,URINE NEGATIVE (NEGATIVE); OCCULT BLOOD,URINE NEGATIVE (NEGATIVE); PROTEIN,URINE NEGATIVE (NEGATIVE); UROBILINOGEN,URINE 0.2 (NORMAL) E.U./dL (NORMAL)
[2021-07-15 10:27] LABS: CLARITY,URINE CLEAR (CLEAR)
[2021-07-15 12:07] VITALS: BP 123/75
== END 2021-07-15 12:08 | disposition home or self-care (01) ==
LOC: ED 08:54
DX: O21.0 Mild hyperemesis gravidarum (principal); O99.611 Diseases of the digestive system complicating pregnancy, first trimester; K52.9 Noninfective gastroenteritis and colitis, unspecified; O99.331 Smoking (tobacco) complicating pregnancy, first trimester; F17.200 Nicotine dependence, unspecified, uncomplicated; Z3A.12 12 weeks gestation of pregnancy
CPT/HCPCS: 36415; 80053; 81003; 83690; 85025; 96361; 96374; 99283; A9270; 81001; 87086

== ENCOUNTER 2021-07-30 12:41 | Outpatient (CLI) | payer BC, OTHER | END 2021-07-30 12:42 | disposition home or self-care (01) | LOC: LAB 12:41 | PROVIDERS: ATTEND Nurse Practitioner Obstetrics & Gynecology | DX: Z36.8A Encounter for antenatal screening for other genetic defects (principal) | CPT/HCPCS: 36415 ==

== ENCOUNTER 2021-08-14 19:29 | Emergency (ER) | payer BC, OTHER ==
[2021-08-14] MEDS ORDERED: SODIUM CHLORIDE 0.9% 1,000 ML IV STA ×2 (19:53→22:06)
[2021-08-14 20:07] LABS: BASOPHILS # (AUTO) 0.1 10^3/uL (0.0-0.1); BASOPHILS % (AUTO) 0.4 %; EOSINOPHILS # (AUTO) 0.2 10^3/uL (0.0-0.7); EOSINOPHILS % (AUTO) 1.4 %; HCT - HEMATOCRIT 36.3 % (37.0-47.0); LYMPHOCYTES # (AUTO) 2.8 10^3/uL (1.5-3.5); MEAN CORPUSCULAR HEMOGLOBIN 28.5 pg (27.0-31.0); MEAN CORPUSCULAR HGB CONC 33.1 g/dL (32.0-36.0); MEAN CORPUSCULAR VOLUME 86.2 fL (81.0-99.0); MONOCYTES # (AUTO) 1.2 10^3/uL (0.0-1.0); MONOCYTES % (AUTO) 8.3 %; NEUTROPHILS # (AUTO) 9.8 10^3/uL (1.5-6.6); NEUTROPHILS % (AUTO) 69.5 %; PLT - PLATELET COUNT 396 10^3/uL (130-450); RED BLOOD COUNT 4.21 10^6/uL (4.20-5.40); RED CELL DISTRIBUTION WIDTH 13.6 % (12.0-15.0); WHITE BLOOD COUNT 14.1 x10^3/uL (4.8-10.8)
[2021-08-14 20:21] LABS: ALBUMIN 3.4 g/dL (3.2-5.5); ALBUMIN/GLOBULIN RATIO 0.9 (1.0-2.2); BILIRUBIN,TOTAL 0.5 mg/dL (0.2-1.0); CREATININE 0.6 mg/dL (0.4-1.0); POTASSIUM 3.1 mmol/L (3.5-5.0); TOTAL PROTEIN 7.4 g/dL (6.7-8.2)
[2021-08-14] MEDS ORDERED: ACETAMINOPHEN 325 MG TABLET PO STA (21:21)
--- NOTE | 2021-08-14 21:36 | ED Physician Documentation ---
PD HPI NVD - Stated complaint Stated Complaint: VOMITING - Chief complaint Chief Complaint: Abd Pain - History obtained from History obtained from: Patient - History of Present Illness Timing - onset: How many days ago (4-5) Timing - duration: Days Timing - details: Gradual onset Pain level now: 4 Associated symptoms: Fever (Tmax 100.8). No: Abdominal pain Improved by: Other (no ameliorating factors) - Additonal information Additional information: c/o sore throat, generalized myalgias , generalized headache x 4-5 days. She is COVID vaccinated but without booster. She is 16 weeks and has had ultrasound in this .She has had fever Tmax 100.8. 4 days ago she had COVID and strep tests, both of which were negative, but yesterday she had another strep test and this result was positive. She was prescribed amoxicillin but she has been unable to keep this down due to ongoing nausea and vomiting which has been attributed to hyperemesis gravidarum. The nausea/vomiting is thus not a new problem, and she has been taking zofran, reglan, vitamin B6, and doxylamine for this (unable to keep these medications down tonight). 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 Review of Systems Constitutional: reports: Fever, Myalgias Throat: reports: Sore throat Cardiac: reports: Reviewed and negative Respiratory: reports: Reviewed and negative GI: reports: Nausea, Vomiting. 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 : None HEENT: None Psych: Depression, Anxiety Musculoskeletal: None Derm: None - Past Surgical History Past Surgical History: No General: Other - Present Medications Home Medications: Ambulatory Orders Medication Instructions Recorded Confirmed Doxylamine Succinate [Unisom] 25 mg PO HS 07/15/21 07/15/21 Metoclopramide [Reglan] 10 mg PO Q6H PRN 07/15/21 07/15/21 Ondansetron Odt [Zofran Odt] 4 mg TL Q6H PRN 07/15/21 07/15/21 Pyridoxine HCl (Vitamin B6) 100 mg PO TID 07/15/21 07/15/21 [Vitamin B6] - Allergies Allergies/Adverse Reactions: Allergies Allergy/AdvReac Type Severity Reaction Status Date / Time prednisone AdvReac Anxiety Verified 08/14/21 19:33 - Social History Does the pt smoke?: No Smoking Status: Current every day smoker Does the pt drink ETOH?: No Does the pt have substance abuse?: No - Immunizations Immunizations are current?: Yes - POLST Patient has POLST: No PD ED PE NORMAL - Vitals Vital signs reviewed: Yes - General General: Alert and oriented X 3, No acute distress, Well developed/nourished - HEENT HEENT: Moist mucous membranes - Neck Neck: Supple, no meningeal sign - Cardiac Cardiac: RRR, No murmur - Respiratory Respiratory: No respiratory distress, Clear bilaterally - Abdomen Abdomen: Soft, Non tender - Back Back: No CVA TTP PD ED PE EXPANDED - HEENT HEENT: Pharyngeal erythema. No: Swollen tonsils, Tonsillar exudate Results - Vitals Vitals: Vital Signs - 24 hr 08/14/21 08/14/21 08/14/21 19:33 21:30 22:33 Temperature 36.5 C Heart Rate 100 87 81 Respiratory 16 16 Rate Blood Pressure 120/71 116/71 111/74 O2 Saturation 99 98 97 08/15/21 08/15/21 00:19 01:27 Temperature 36.5 C Heart Rate 86 88 Respiratory 16 15 Rate Blood Pressure 102/60 112/78 O2 Saturation 98 97 Oxygen O2 Source Room air - Labs Labs: Laboratory Tests 08/14/21 08/14/21 08/14/21 20:01 20:01 22:06 WBC 14.1 H RBC 4.21 Hgb 12.0 Hct 36.3 L MCV 86.2 MCH 28.5 MCHC 33.1 RDW 13.6 Plt Count 396 MPV 10.0 Neut # (Auto) 9.8 H Lymph # (Auto) 2.8 [place] # (Auto) 1.2 H Eos # (Auto) 0.2 Baso # (Auto) 0.1 Absolute Nucleated RBC 0.00 Nucleated RBC % 0.0 Sodium 136 Potassium 3.1 L Chloride 103 Carbon Dioxide 25 Anion Gap 8.0 BUN 9 Creatinine 0.6 Estimated GFR (MDRD) 122 Glucose 114 H Calcium 9.0 Total Bilirubin 0.5 AST 13 ALT 13 Alkaline Phosphatase 62 Total Protein 7.4 Albumin 3.4 Globulin 4.0 Albumin/Globulin Ratio 0.9 L Lipase 25 Urine Color YELLOW Urine Clarity CLEAR Urine pH 6.0 Ur Specific [place] 1.015 Urine Protein NEGATIVE Urine Glucose (UA) NEGATIVE Urine Ketones TRACE Urine Occult Blood NEGATIVE Urine Nitrite NEGATIVE Urine Bilirubin NEGATIVE Urine Urobilinogen 0.2 (NORMAL) Ur Leukocyte Esterase SMALL H Urine RBC None Seen Urine WBC 0-3 Ur Squamous Epith Cells MANY Squamous H Urine Bacteria Rare Ur Microscopic Review INDICATED Urine Culture Comments NOT INDICATED Nasal Adenovirus (PCR) Nasal B. parapertussis DNA (PCR) Nasal Coronavir 229E PCR Nasal Coronavir HKU1 PCR Nasal Coronavir NL63 PCR Nasal Coronavir OC43 PCR Nasal Enterovir/Rhinovir PCR Nasal Influenza B PCR Nasal Influenza A PCR Nasal Parainfluen 1 PCR Nasal Parainfluen 2 PCR Nasal Parainfluen 3 PCR Nasal Parainfluen 4 PCR Nasal RSV (PCR) Nasal B.pertussis DNA PCR Nasal C.pneumoniae (PCR) [place] Human Metapneumo PCR Nasal M.pneumoniae (PCR) Nasal SARS-CoV-2 (PCR) 08/14/21 22:55 WBC RBC Hgb Hct MCV MCH MCHC RDW Plt Count MPV Neut # (Auto) Lymph # (Auto) [place] # (Auto) Eos # (Auto) Baso # (Auto) Absolute Nucleated RBC Nucleated RBC % Sodium Potassium Chloride Carbon Dioxide Anion Gap BUN Creatinine Estimated GFR (MDRD) Glucose Calcium Total Bilirubin AST ALT Alkaline Phosphatase Total Protein Albumin Globulin Albumin/Globulin Ratio Lipase Urine Color Urine Clarity Urine pH Ur Specific [place] Urine Protein Urine Glucose (UA) Urine Ketones Urine Occult Blood Urine Nitrite Urine Bilirubin Urine Urobilinogen Ur Leukocyte Esterase Urine RBC Urine WBC Ur Squamous Epith Cells Urine Bacteria Ur Microscopic Review Urine Culture Comments Nasal Adenovirus (PCR) NOT DETECTED Nasal B. parapertussis DNA (PCR) NOT DETECTED Nasal Coronavir 229E PCR NOT DETECTED Nasal Coronavir HKU1 PCR NOT DETECTED Nasal Coronavir NL63 PCR NOT DETECTED Nasal Coronavir OC43 PCR NOT DETECTED Nasal Enterovir/Rhinovir PCR NOT DETECTED Nasal Influenza B PCR NOT DETECTED Nasal Influenza A PCR NOT DETECTED Nasal Parainfluen 1 PCR NOT DETECTED Nasal Parainfluen 2 PCR NOT DETECTED Nasal Parainfluen 3 PCR NOT DETECTED Nasal Parainfluen 4 PCR NOT DETECTED Nasal RSV (PCR) NOT DETECTED Nasal B.pertussis DNA PCR NOT DETECTED Nasal C.pneumoniae (PCR) NOT DETECTED [place] Human Metapneumo PCR NOT DETECTED Nasal M.pneumoniae (PCR) NOT DETECTED Nasal SARS-CoV-2 (PCR) NOT DETECTED PD MEDICAL DECISION MAKING - ED course Complexity details: reviewed results, re-evaluated patient, considered differential, d/w patient ED course: recently diagnosed with strep throat but unable to tolerate PO for most of the day today, including medications (including the amoxicillin that was prescribed) due to ongoing hyperemesis gravidarum. nontender abdominal exam, no concerning findings on blood tests (mild leukocytosis noted). She is given 2 liters NS IV and IV rocephin for strep throat. She is given 4mg IV zofran followed by 10mg reglan IV and she has improvement with these measures. She tolerates PO liquids in ED. Respiratory panel is negative. Departure - Departure Disposition: 01 Home, Self Care Clinical Impression: Vomiting during Pharyngitis Qualifiers: Pharyngitis/tonsillitis etiology: streptococcus Qualified Code(s): J02.0 - Streptococcal pharyngitis Condition: Good Instructions: ED Preg Morning Sickness, ED Strep Pharyngitis Conf Follow-Up: MANJULA DUBON ARNP [Primary Care Provider] - Discharge Date/Time: 08/15/21 01:28
[2021-08-14] MEDS ORDERED: ONDANSETRON 4 MG/2 ML VIAL IVP STA (22:05)
[2021-08-14] MEDS ORDERED: cefTRIAXone 1 GM in SODIUM CHLORIDE 0.9% MINIBAG 100 ML IV STA (22:07)
[2021-08-14] MEDS ORDERED: cefTRIAXone 1 GM VIAL ONE (22:28)
[2021-08-14 22:35] LABS: BILIRUBIN,URINE NEGATIVE (NEGATIVE); GLUCOSE, URINE (UA) NEGATIVE (NEGATIVE); KETONES,URINE (UA) TRACE mg/dL (NEGATIVE); LEUKOCYTE ESTERASE, URINE SMALL (NEGATIVE); NITRITE,URINE NEGATIVE (NEGATIVE); OCCULT BLOOD,URINE NEGATIVE (NEGATIVE); PROTEIN,URINE NEGATIVE (NEGATIVE); UROBILINOGEN,URINE 0.2 (NORMAL) E.U./dL (NORMAL)
[2021-08-14 22:36] LABS: CLARITY,URINE CLEAR (CLEAR)
[2021-08-14 22:43] LABS: RBC,URINE None Seen /HPF (0-5); WBC,URINE 0-3 /HPF (0-5)
[2021-08-14 22:44] LABS: BACTERIA,URINE Rare /HPF (None Seen); SQUAMOUS EPITHELIAL CELL,UR MANY Squamous (<= Few)
[2021-08-14 23:49] LABS: B. PARAPERTUSSIS- RESP PCR PAN NOT DETECTED; B. PERTUSSIS- RESP PCR PANEL NOT DETECTED; C. PNEUMONIAE- RESP PCR PANEL NOT DETECTED; CORONAVIRUS 229E-RESP PCR NOT DETECTED; CORONAVIRUS HKU1-RESP PCR NOT DETECTED; CORONAVIRUS NL63-RESP PCR NOT DETECTED; CORONAVIRUS OC43-RESP PCR NOT DETECTED; HUMAN METAPNEUMOVIRUS NOT DETECTED; INFLUENZA A- RESP PCR PANEL NOT DETECTED; INFLUENZA B - RESP PCR PANEL NOT DETECTED; M. PNEUMONIAE- RESP PCR PANEL NOT DETECTED; PARAINFLUENZA VIRUS 1 NOT DETECTED; PARAINFLUENZA VIRUS 2 NOT DETECTED; PARAINFLUENZA VIRUS 3 NOT DETECTED; PARAINFLUENZA VIRUS 4 NOT DETECTED; RHINOVIRUS/ENTEROVIRUS NOT DETECTED; RSV- RESP PCR PANEL NOT DETECTED; SARS-CoV-2 -RESP PCR PANEL NOT DETECTED
[2021-08-15] MEDS ORDERED: METOCLOPRAMIDE 10 MG/2 ML VIAL IVP STA (01:08)
[2021-08-15 01:28] VITALS: BP 112/78
== END 2021-08-15 01:28 | disposition home or self-care (01) ==
LOC: ED 19:29
DX: O21.0 Mild hyperemesis gravidarum (principal); O99.332 Smoking (tobacco) complicating pregnancy, second trimester; O98.812 Other maternal infectious and parasitic diseases complicating pregnancy, second trimester; B95.1 Streptococcus, group B, as the cause of diseases classified elsewhere; Z3A.16 16 weeks gestation of pregnancy; Z20.822 Contact with and (suspected) exposure to COVID-19
CPT/HCPCS: 0202U; 36415; 80053; 81001; 83690; 85025; 96365; 96375; 99283; A9270; J2765; 81003; 87086

== ENCOUNTER 2021-08-25 08:58 | Emergency (ER) | payer BC, OTHER ==
[2021-08-25 09:19] LABS: BASOPHILS % (AUTO) 0.2 %; EOSINOPHILS # (AUTO) 0.1 10^3/uL (0.0-0.7); EOSINOPHILS % (AUTO) 0.5 %; HCT - HEMATOCRIT 37.1 % (37.0-47.0); HGB - HEMOGLOBIN 12.5 g/dL (12.0-16.0); LYMPHOCYTES # (AUTO) 1.1 10^3/uL (1.5-3.5); LYMPHOCYTES % (AUTO) 5.8 %; MEAN CORPUSCULAR HEMOGLOBIN 28.9 pg (27.0-31.0); MEAN CORPUSCULAR HGB CONC 33.7 g/dL (32.0-36.0); MEAN CORPUSCULAR VOLUME 85.7 fL (81.0-99.0); MEAN PLATELET VOLUME 9.9 fL (7.9-10.8); MONOCYTES # (AUTO) 0.6 10^3/uL (0.0-1.0); MONOCYTES % (AUTO) 3.3 %; NEUTROPHILS # (AUTO) 17.3 10^3/uL (1.5-6.6); NEUTROPHILS % (AUTO) 89.8 %; PLT - PLATELET COUNT 489 10^3/uL (130-450); RED BLOOD COUNT 4.33 10^6/uL (4.20-5.40); RED CELL DISTRIBUTION WIDTH 13.5 % (12.0-15.0); WHITE BLOOD COUNT 19.3 x10^3/uL (4.8-10.8)
[2021-08-25 09:35] LABS: ALBUMIN 3.5 g/dL (3.2-5.5); ALBUMIN/GLOBULIN RATIO 0.9 (1.0-2.2); BILIRUBIN,TOTAL 0.8 mg/dL (0.2-1.0); CALCIUM 8.7 mg/dL (8.5-10.3); CREATININE 0.4 mg/dL (0.4-1.0); POTASSIUM 3.2 mmol/L (3.5-5.0); TOTAL PROTEIN 7.3 g/dL (6.7-8.2)
[2021-08-25] MEDS ORDERED: ONDANSETRON 4 MG/2 ML VIAL IVP STA (09:38)
[2021-08-25] MEDS ORDERED: SODIUM CHLORIDE 0.9% 1,000 ML IV STA (09:38)
[2021-08-25] MEDS ORDERED: LOPERAMIDE 2 MG CAPSULE PO STA (11:09)
--- NOTE | 2021-08-25 11:26 | ED Physician Documentation ---
PD HPI ABD PAIN - Stated complaint Stated Complaint: VOMITING-DIARRHEA - Chief complaint Chief Complaint: Abd Pain - History obtained from History obtained from: Patient - Additional information Additional information: The patient comes to the emergency department chief complaint of vomiting and diarrhea that is worse than usual. She is 18 months and has had persistent nausea throughout her entire , but states that last night, it seemed a lot worse than usual. She states she kept waking up to vomit all through the night and that she was finally just dry heaving and bringing up small amounts of bile. She states she is also had some very runny diarrhea, and tried to take a dose of Imodium last night for this, but ended up vomiting that up to. She states that she has not been around anybody sick that she knows of. The patient denies fevers or chills. She states her has otherwise gone well. She has a history of hyperemesis gravidarum in her 2 prior pregnanci es. No dysuria or hematuria. No vaginal bleeding. Review of Systems Ten Systems: 10 systems reviewed and negative Constitutional: reports: Reviewed and negative Eyes: reports: Reviewed and negative Ears: reports: Reviewed and negative Nose: reports: Reviewed and negative Throat: reports: Reviewed and negative Cardiac: reports: Reviewed and negative Respiratory: reports: Reviewed and negative GI: reports: Nausea, Vomiting, Diarrhea : reports: Reviewed and negative Skin: reports: Reviewed and negative Musculoskeletal: reports: Reviewed and negative Neurologic: reports: Reviewed and negative Psychiatric: reports: Reviewed and negative Endocrine: reports: Reviewed and negative Immunocompromised: reports: Reviewed and negative PD PAST MEDICAL HISTORY - Past Medical History Past Medical History: Yes Cardiovascular: None Respiratory: Asthma Neuro: Migraines Endocrine/Autoimmune: None GI: Hemorrhoids 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 : None HEENT: None Psych: Depression, Anxiety Musculoskeletal: None Derm: None - Past Surgical History Past Surgical History: No General: Other - Present Medications Home Medications: Ambulatory Orders Medication Instructions Recorded Confirmed Doxylamine Succinate [Unisom] 25 mg PO HS 07/15/21 07/15/21 Metoclopramide [Reglan] 10 mg PO Q6H PRN 07/15/21 07/15/21 Ondansetron Odt [Zofran Odt] 4 mg TL Q6H PRN 07/15/21 07/15/21 Pyridoxine HCl (Vitamin B6) 100 mg PO TID 07/15/21 07/15/21 [Vitamin B6] Ondansetron Odt [Zofran] 4 mg TL Q6H PRN #20 tablet 08/25/21 - Allergies Allergies/Adverse Reactions: Allergies Allergy/AdvReac Type Severity Reaction Status Date / Time prednisone AdvReac Anxiety Verified 08/25/21 09:10 - Social History Does the pt smoke?: No Smoking Status: Never smoker Does the pt drink ETOH?: No Does the pt have substance abuse?: No - Immunizations Immunizations are current?: Yes - POLST Patient has POLST: No PD ED PE NORMAL - Vitals Vital signs reviewed: Yes - General General: Alert and oriented X 3, No acute distress, Well developed/nourished - HEENT HEENT: Atraumatic, PERRL, EOMI, Moist mucous membranes - Neck Neck: Supple, no meningeal sign - Cardiac Cardiac: RRR, No murmur - Respiratory Respiratory: No respiratory distress, Clear bilaterally - Abdomen Abdomen: Soft, Non tender, Non distended - Derm Derm: Normal color, Warm and dry, No rash - Extremities Extremities: No deformity, No edema, No calf tenderness / cord - Neuro Neuro: Alert and oriented X 3, [place] 2-12 intact, Normal speech - Psych Psych: Normal mood, Normal affect Results - Vitals Vitals: Vital Signs - 24 hr 08/25/21 08/25/21 09:05 11:09 Temperature 36.0 C L 36.5 C Heart Rate 106 H 92 Respiratory 16 16 Rate Blood Pressure 106/75 103/70 O2 Saturation 99 97 Oxygen O2 Source Room air - Labs Labs: Laboratory Tests 08/25/21 08/25/21 09:16 09:16 WBC 19.3 H RBC 4.33 Hgb 12.5 Hct 37.1 MCV 85.7 MCH 28.9 MCHC 33.7 RDW 13.5 Plt Count 489 H MPV 9.9 Neut # (Auto) 17.3 H Lymph # (Auto) 1.1 L [place] # (Auto) 0.6 Eos # (Auto) 0.1 Baso # (Auto) 0.0 Absolute Nucleated RBC 0.00 Nucleated RBC % 0.0 Sodium 136 Potassium 3.2 L Chloride 107 Carbon Dioxide 22 Anion Gap 7.0 BUN 10 Creatinine 0.4 Estimated GFR (MDRD) 194 Glucose 95 Calcium 8.7 Total Bilirubin 0.8 AST 15 ALT 16 Alkaline Phosphatase 55 Total Protein 7.3 Albumin 3.5 Globulin 3.8 Albumin/Globulin Ratio 0.9 L Lipase 30 PD MEDICAL DECISION MAKING - ED course Complexity details: reviewed results, re-evaluated patient, considered differential, d/w patient ED course: The patient was treated symptomatically with IV fluids, Zofran, and Imodium. She was worked up with labs, which were largely unremarkable, except for leukocytosis. The patient was afebrile and had a benign abdomen, and this point, I did not find evidence of a concerning cause of the patient's leukocytosis. Patient was found to be feeling better on reevaluation and tolerated p.o. challenge. I have prescribed her oral dissolving Zofran, since she does not have this at home but only has the kind that she has to swallow and has been having trouble holding down. We have discussed the usual indications for return. Departure - Departure Disposition: 01 Home, Self Care Clinical Impression: Gastroenteritis, related nausea and vomiting, antepartum Condition: Stable Instructions: ED Gastroenteritis Viral Prescriptions: Ondansetron Odt [Zofran] 4 mg TL Q6H PRN #20 tablet PRN Reason: Nausea / Vomiting Comments: Your labs overall look good. Your white blood cell count is somewhat elevated, but you do not have a fever or other specific signs of illness, and this is most likely a reaction to the vomiting you have been having. Please follow-up with your primary OB. You should also try to get the prescription for the oral dis solving Zofran filled so that you do not have to try to swallow pills when you are nauseated. Please continue to try to get plenty of fluids to drink, and if you absolutely cannot hold anything down for more than 24 hours, please return to the emergency department.
[2021-08-25] MEDS ORDERED: PROMETHAZINE INJ 12.5 MG in SODIUM CHLORIDE 0.9% 50 ML IV STA (11:30)
[2021-08-25 12:29] VITALS: BP 111/73
== END 2021-08-25 12:45 | disposition home or self-care (01) ==
LOC: ED 08:58
DX: O21.0 Mild hyperemesis gravidarum (principal); Z3A.00 Weeks of gestation of pregnancy not specified
CPT/HCPCS: 36415; 80053; 83690; 85025; 96361; 96365; 96375; 99282; 99284; A9270; J7040

== ENCOUNTER 2021-09-24 13:19 | Outpatient (CLI) | payer BC, OTHER ==
[2021-09-24 13:34] LABS: BILIRUBIN,URINE NEGATIVE (NEGATIVE); GLUCOSE, URINE (UA) NEGATIVE (NEGATIVE); KETONES,URINE (UA) NEGATIVE (NEGATIVE); LEUKOCYTE ESTERASE, URINE MODERATE (NEGATIVE); NITRITE,URINE NEGATIVE (NEGATIVE); OCCULT BLOOD,URINE NEGATIVE (NEGATIVE); PH,URINE 6.5 PH (5.0-7.5); PROTEIN,URINE NEGATIVE (NEGATIVE); UROBILINOGEN,URINE 0.2 (NORMAL) E.U./dL (NORMAL)
[2021-09-24 13:45] LABS: BACTERIA,URINE Few /HPF (None Seen); CLARITY,URINE CLEAR (CLEAR); RBC,URINE 0-5 /HPF (0-5); SQUAMOUS EPITHELIAL CELL,UR FEW Squamous (<= Few)
[2021-09-24 13:47] VITALS: BP 117/73
--- NOTE | 2021-09-24 15:05 | PROVIDER PROGRESS NOTE ---
- HPI Chief Complaint: Pain, non-labor Current : Vital Signs Temperature 98.0 F 09/24/21 13:26 Heart Rate 88 09/24/21 13:26 Respiratory Rate 18 09/24/21 13:26 Blood Pressure 117/73 09/24/21 13:26 Temperature 98.0 F 09/24/21 13:26 Heart Rate 88 09/24/21 13:26 Respiratory Rate 18 09/24/21 13:26 Blood Pressure 117/73 09/24/21 13:26 O2 Saturation - Procedures NST Procedure: NST Procedure Stop Time 11:30 - Plan Plan: Patient is a 25-year-old -0-0-2 at 22 weeks 3 days gestation presenting to triage for low abdominal pain. She has good movement. No leaking or bleeding. She does say she had an increase in vaginal discharge. She denies headache, right upper quadrant pain, changes in vision. Earlier today while at work, she had an episode of right lower quadrant pain that then migrated to the left. This subsequently has localized on the left and wraps around to her back left flank. She has had several episode of this today, each with about one minute of pain then subsiding. Denies contractions. No burning with urination. Some increased frequency, this is not unusual for her. Nausea has picked up the last several days. She was doing better the last couple of weeks, but as of Wednesday picked up somewhat. Still constipated, but had a small, pellet-like bowel movement e arlier today. No fever or chills. The pain did make her feel little bit sweaty earlier, but no persistent no sick contacts at home sweating. Problems: Nausea and vomiting of : Prepregnancy weight 156. Some weight loss since last visit. Decreasing Reglan use. Still taking frequent Zofran, B6, Unisom. Encourage continue small frequent meals and if smoothies work for her. LMP: 04/20/2021 ABRAM by LMP:01/25/2022 Initial U/S:06/26/21@ 9w3d c/w LPM (01/26/2022) FINAL ABRAM: 01/25/2022 A pos/Rubella immune VZV:immune Genetic testing: NIPT low risk (male); MSAFP ordered FAS: scheduled 09/09 Glucola: Influenza: 03/2021 TDAP: COVID vaccine: fully vaccinated - plans to get booster in 2nd trimester GBS: HSV: denies in self and partner Breast pump Rx: MOD: Anticipate ; Gnosticism, sons [place] & [place], pp contraception: desires bilateral tubal ligation - will sign consent in third trimester pap 05/26/2019 NILM Past medical history Anxiety Asthma Anemia Headaches/migraines Past surgical history Meniscus repait 2010 Family history Father: Alcoholism, anxiety, depression, diabetes, kidney disease Brother: Anxiety, by suicide due to depression Mother: Weight disorder, arthritis, thyroid disease Maternal grandmother: Breast cancer Social history Denies tobacco, alcohol, drugs Physical Exam Temp Pulse Resp BP Pulse Ox 98.0 F 88 18 117/73 09/24/21 14:15 09/24/21 14:15 09/24/21 14:15 09/24/21 14:15 Constitutional: alert, no acute distress, well hydrated, well developed, well nourished, appropriate dress. Head: atraumatic, normocephalic. Cardiovascular: RRR. Respiratory: no respiratory distress. Abdomen: Soft, no guarding. Mild suprapubic tenderness. No CVA tenderness, but mild back discomfort. Negative mcburneys point. Extremities: Negative psoas sign. Neurologic: normal, sensation intact, motor intact. Psych: affect and mood appropriate, normal interaction, good eye contact. FHT: 140 bpm Laboratory Last Values Urine Color LT. YELLOW 09/24/21 13:20 Urine Clarity CLEAR (CLEAR) 09/24/21 13:20 Urine pH 6.5 PH (5.0-7.5) 09/24/21 13:20 Ur Specific Hope 1.010 (1.002-1.030) 09/24/21 13:20 Urine Protein NEGATIVE mg/dL (NEGATIVE) 09/24/21 13:20 Urine Glucose (UA) NEGATIVE mg/dL (NEGATIVE) 09/24/21 13:20 Urine Ketones NEGATIVE mg/dL (NEGATIVE) 09/24/21 13:20 Urine Occult Blood NEGATIVE (NEGATIVE) 09/24/21 13:20 Urine Nitrite NEGATIVE (NEGATIVE) 09/24/21 13:20 Urine Bilirubin NEGATIVE (NEGATIVE) 09/24/21 13:20 Urine Urobilinogen 0.2 (NORMAL) E.U./dL (NORMAL) 09/24/21 13:20 Ur Leukocyte Esterase MODERATE (NEGATIVE) H 09/24/21 13:20 Urine RBC 0-5 /HPF (0-5) 09/24/21 13:20 Urine WBC 4-5 /HPF (0-5) 09/24/21 13:20 Ur Squamous Epith Cells FEW Squamous (<= Few) 09/24/21 13:20 Urine Bacteria Few /HPF (None Seen) 09/24/21 13:20 Urine Culture Comments INDICATED 09/24/21 13:20 Assessment and plan 25-year-old -0-0-2 at 22 weeks 3 days gestation with abdominal pain. 1. Abdominal pain: Likely combination of issue due to her frequent vomiting, and ongoing constipation. This does appear colicky in nature. We did obtain a UA that was significant for leukocyte esterase, few bacteria and was sent for culture. Will plan for antibiotics given her urinary frequency and bacteriuria. Very low liklihood of appendicitis given the course of her symptoms and her negative exam findings. Encouraged to return if she has significant worsening of pain, fever, or other symptoms. Has follow up visit in two days. Discharged in stable condition. 2. Vaginal discharge -Vaginosis panel collected. Will follow up outpatient 3. Chronic constipation -Increase miralax to twice a day. 4. 22 weeks gestation -Heart tones normal
[2021-09-24 19:43] LABS: BACTERIAL VAGINOSIS DNA POSITIVE (NEGATIVE); CANDIDA GROUP DNA POSITIVE (NEGATIVE); CANDIDA KRUSEI DNA NEGATIVE (NEGATIVE); TRICHOMONAS VAGINALIS DNA NEGATIVE (NEGATIVE)
[2021-09-24 19:44] LABS: CANDIDA GLABRATA DNA NEGATIVE (NEGATIVE)
== END 2021-09-24 14:45 | disposition home or self-care (01) ==
LOC: WFO 13:19 → FBP 13:21 → WFO 14:45
PROVIDERS: ATTEND Obstetrics & Gynecology
DX: O99.612 Diseases of the digestive system complicating pregnancy, second trimester (principal); R10.32 Left lower quadrant pain; K59.09 Other constipation; O21.2 Late vomiting of pregnancy; R35.0 Frequency of micturition; R82.71 Bacteriuria; O99.891 Other specified diseases and conditions complicating pregnancy; N89.8 Other specified noninflammatory disorders of vagina; O35.8XX0 Maternal care for other (suspected) fetal abnormality and damage, not applicable or unspecified; Z3A.22 22 weeks gestation of pregnancy; Z36.8A Encounter for antenatal screening for other genetic defects
CPT/HCPCS: 81001; 87086; 87661; 87801; 99213

== ENCOUNTER 2021-09-24 20:55 | Outpatient (CLI) | payer BC, OTHER ==
--- NOTE | 2021-09-25 16:19 | Ultrasound Report ---
PROCEDURE: OB Detailed Eval INDICATIONS: SUPERVISION OF OUTSIDE/PRIOR DATING DATA: ast menstrual period (LMP): 04/20/2021. LMP-based estimated date of delivery (ABRAM): 01/25/2022. First dating scan (date and location): 06/26/2021, current study. Estimated date of delivery (ABRAM) from first dating scan: 01/26/2022. The below data below was generated using the first trimester ultrasound ABRAM of 01/26/2022. TECHNIQUE: Real-time scanning was performed of the fetus, with image documentation and biometric measurements. COMPARISON: OB ultrasound, 06/26/2021. FINDINGS: General: A single living intrauterine gestation is present. Presentation: Variable. Placenta: Placental position is anterior, without previa. Amniotic fluid index: 16.4 cm; largest pocket 4.7 cm. heart rate: 132 beats per minute. Maternal cervical canal: 3.8 cm long; normal length is 2.5 cm or more. biometrics: Biparietal diameter: 22 weeks 5 days Head circumference: 22 weeks 6 days Abdominal circumference: 23 weeks 5 days Femur length: 22 weeks 0 day Estimated gestational age from initial scan: 22 weeks 2 days. Composite gestational age from present scan: 22 weeks 4 days Estimated weight and percentile: 549 g; 76.9% for gestational age. Measurement variability in biometric dating: +/- 10 days from 12-20 weeks gestation, +/- 2 weeks from 20-30 weeks gestation, +/- 3 weeks at 30 weeks gestation or later. Anatomic survey: Neuro: Ventricles are normal at less than 10 mm. Cisterna magna is normal at 3-11 mm. Cerebellum i s normal in size and morphology. Nuchal skin fold: Normal at less than 6 mm between 14 and 20 weeks gestational age. Face: Nose and lips, facial profile are normal. Spine: No evidence for spina bifida. Heart: 4-chambered heart is present, with normal ventricular outflow tracts. ? Echogenic focus seen on 4 chamber heart. Diaphragm: Diaphragm is intact. Stomach: Left-sided stomach is present. Kidneys: Not well seen. Bladder: Normal in size. Extremities: All 4 extremities are visualized. IMPRESSION: 1. A single living intrauterine gestation with appropriate interval growth. 2. ? A echogenic focus seen on 4-chamber view heart. As an isolated finding, it is likely of no clini melanie significance. Please correlate with other screening tests. Follow-up imaging may be help ful. 3. kidney suboptimally visualized. Follow-up exam is suggested. 4. Otherwise normal anatomic survey. Reviewed by: Amy Mishra MD on 09/25/2021 4:17 PM PDT Approved by: Amy Mishra MD on 09/25/2021 4:17 PM PDT Station ID: [id number]
== END 2021-09-24 20:56 | disposition home or self-care (01) ==
LOC: DI 20:55
PROVIDERS: ATTEND Obstetrics & Gynecology
DX: Z36.8A Encounter for antenatal screening for other genetic defects (principal); O35.8XX0 Maternal care for other (suspected) fetal abnormality and damage, not applicable or unspecified; Z3A.22 22 weeks gestation of pregnancy

== ENCOUNTER 2021-10-21 16:36 | Outpatient (CLI) | payer BC, OTHER ==
--- NOTE | 2021-10-22 15:31 | Ultrasound Report ---
PROCEDURE: OB F/U or Repeat INDICATIONS: SUPERVISION OF OUTSIDE/PRIOR DATING DATA: Last menstrual period (LMP): 04/20/2021. LMP-based estimated date of delivery (ABRAM): 01/25/2022. First dating scan (date and location): 06/26/2021. Estimated date of delivery (ABRAM) from first dating scan: 01/26/2022. The below data below was generated using the ultrasound ABRAM of 01/26/2022 TECHNIQUE: Real-time scanning was performed of the fetus, with image documentation and biometric measurements. COMPARISON: OB ultrasound 09/24/2021, 06/26/2021 FINDINGS: General: A single living intrauterine gestation is present. Presentation: Vertex Placenta: Placental position is anterior, without previa. Amniotic fluid index: 17.5 cm, within normal limits for gestational age. Largest pocket 6.4 cm heart rate: 147 beats per minute. Maternal cervical canal: 4.1 cm long; normal length is 2.5 cm or more. biometrics: Estimated gestational age from initial scan: 26 weeks 1 day Other: kidneys are within normal limits. Four-chamber heart is within normal limits. Incidental finding of a nuchal cord. IMPRESSION: Single live intrauterine with ultrasound gestational age of 26 weeks 1 day. Kidneys are within normal limits. Origin priors within normal limits. Incidental finding of nuchal cord. Reviewed by: Sarita Ríos MD on 10/22/2021 3:30 PM PDT Approved by: Sarita Ríos MD on 10/22/2021 3:30 PM PDT Station ID: [id number]
== END 2021-10-21 16:37 | disposition home or self-care (01) ==
LOC: DI 16:36
PROVIDERS: ATTEND Obstetrics & Gynecology
DX: Z34.02 Encounter for supervision of normal first pregnancy, second trimester (principal); Z3A.26 26 weeks gestation of pregnancy

== ENCOUNTER 2021-10-31 08:00 | Outpatient (CLI) | payer BC, OTHER ==
[2021-10-31 22:27] LABS: BACTERIAL VAGINOSIS DNA NEGATIVE (NEGATIVE); CANDIDA GLABRATA DNA NEGATIVE (NEGATIVE); CANDIDA GROUP DNA POSITIVE (NEGATIVE); CANDIDA KRUSEI DNA NEGATIVE (NEGATIVE); TRICHOMONAS VAGINALIS DNA NEGATIVE (NEGATIVE)
== END 2021-10-31 23:59 | disposition home or self-care (01) ==
LOC: LAB.WC 08:00
PROVIDERS: ATTEND Obstetrics & Gynecology
DX: N89.8 Other specified noninflammatory disorders of vagina (principal)
CPT/HCPCS: 81514

== ENCOUNTER 2021-11-07 17:10 | Outpatient (CLI) | payer BC, OTHER | END 2021-11-07 23:59 | disposition home or self-care (01) | LOC: LAB.N 17:10 | PROVIDERS: ATTEND Physician Assistant | DX: J06.9 Acute upper respiratory infection, unspecified (principal); Z20.822 Contact with and (suspected) exposure to COVID-19 ==

== ENCOUNTER 2021-11-10 10:47 | Outpatient (CLI) | payer BC, OTHER ==
[2021-11-10 12:06] LABS: HCT - HEMATOCRIT 33.5 % (37.0-47.0); MEAN CORPUSCULAR HEMOGLOBIN 28.7 pg (27.0-31.0); MEAN CORPUSCULAR HGB CONC 32.8 g/dL (32.0-36.0); MEAN CORPUSCULAR VOLUME 87.5 fL (81.0-99.0); MEAN PLATELET VOLUME 10.7 fL (7.9-10.8); RED BLOOD COUNT 3.83 10^6/uL (4.20-5.40); RED CELL DISTRIBUTION WIDTH 13.3 % (12.0-15.0); WHITE BLOOD COUNT 11.9 x10^3/uL (4.8-10.8)
== END 2021-11-10 10:48 | disposition home or self-care (01) ==
LOC: LAB 10:47
PROVIDERS: ATTEND Obstetrics & Gynecology
DX: Z34.90 Encounter for supervision of normal pregnancy, unspecified, unspecified trimester (principal); Z36.8A Encounter for antenatal screening for other genetic defects
CPT/HCPCS: 36415; 82950; 85027

== ENCOUNTER 2021-11-14 08:09 | Outpatient (CLI) | payer BC, OTHER ==
[2021-11-14 08:43] LABS: GTT GLUCOSE,FASTING 89 mg/dL (70-100)
== END 2021-11-14 08:10 | disposition home or self-care (01) ==
LOC: LAB 08:09
PROVIDERS: ATTEND Obstetrics & Gynecology
DX: O99.810 Abnormal glucose complicating pregnancy (principal)
CPT/HCPCS: 36415; 82951; 82952

== ENCOUNTER 2021-12-08 15:31 | Outpatient (CLI) | payer BC, OTHER ==
--- NOTE | 2021-12-08 16:33 | Ultrasound Report ---
PROCEDURE: OB F/U or Repeat INDICATIONS: GESTATIONAL DIABETES OUTSIDE/PRIOR DATING DATA: Last menstrual period (LMP): 04/20/2021. LMP-based estimated date of delivery (ABRAM): 01/25/2022. First dating scan (date and location): 06/26/2021. Estimated date of delivery (ABRAM) from first dating scan: 01/26/2022. TECHNIQUE: Real-time scanning was performed of the fetus, with image documentation and biometric measurements. Endovaginal scanning: None COMPARISON: None. FINDINGS: General: A single living intrauterine gestation is present. Presentation: Cephalic Placenta: Placental position is anterior, without previa. Amniotic fluid index: 17.6 cm, normal for gestational age. heart rate: 124 beats per minute. Maternal cervical canal: 3.8 cm long; normal length is 2.5 cm or more. biometrics: Biparietal diameter: 8.4 cm, 34 week 0 day Head circumference: 31.0 cm, 34 week 3 day Abdominal circumference: 29.4 cm, 33 week 3 day Femur length: 6.5 cm, 33 week 3 day Estimated gestational age from initial scan: 32 week 0 day Composite gestational age from present scan: 33 week 6 day Estimated weight and percentile: 2230 g, 60th percentile Measurement variability in biometric dating: +/- 10 days from 12-20 weeks gestation, +/- 2 weeks from 20-30 weeks gestation, +/- 3 weeks at 30 weeks gestation or more. Other: Not applicable. IMPRESSION: Single live intrauterine consistent with 33 week 6 day gestation by current ultrasound Reviewed by: Braxton Martin MD on 12/08/2021 3:32 PM RUTH ANN Approved by: Braxton Martin MD on 12/08/2021 3:32 PM AKHESHAM Station ID: [id number]
== END 2021-12-08 15:32 | disposition home or self-care (01) ==
LOC: DI 15:31
PROVIDERS: ATTEND Obstetrics & Gynecology
DX: O24.419 Gestational diabetes mellitus in pregnancy, unspecified control (principal); Z3A.33 33 weeks gestation of pregnancy

== ENCOUNTER 2021-12-15 12:33 | Outpatient (CLI) | payer BC, OTHER ==
[2021-12-15 13:02] VITALS: BP 109/77
--- NOTE | 2021-12-15 13:52 | PROCEDURE REPORT ---
- HPI Diagnosis/Indication for NST: Gestational Diabetes Vital Signs Temperature 97.7 F 12/15/21 13:00 Heart Rate 90 12/15/21 13:00 Respiratory Rate 18 12/15/21 13:00 Blood Pressure 109/77 12/15/21 13:00 O2 Saturation 100 12/15/21 13:00 Temperature 97.7 F 12/15/21 13:05 Heart Rate 90 12/15/21 13:00 Respiratory Rate 18 12/15/21 13:00 Blood Pressure 109/77 12/15/21 13:00 O2 Saturation 100 12/15/21 13:00 - NST Procedure NST Procedure Stop Time 11:30 EFM: 110-120s, moderate variability, positive 15x15 accelerations, no decelerations Omer: occasional contractions NST reactive - Results and Plan Findings/Impression: 26yo at 34.1w with reactive NST - Complicated by GDMA1, reports her BG are normal range today. She presented due to concern of low BG yesterday. No OB concerns. - HG: continues zofran and reglan, encouraged regular meals/snacks as much as possible - Follow up as scheduled with primary OB
== END 2021-12-15 13:50 | disposition home or self-care (01) ==
LOC: WFO 12:33 → FBP 12:35 → WFO 13:50
PROVIDERS: ATTEND Obstetrics & Gynecology
DX: O24.419 Gestational diabetes mellitus in pregnancy, unspecified control (principal); Z3A.34 34 weeks gestation of pregnancy
CPT/HCPCS: 59025

== ENCOUNTER 2022-01-02 08:00 | Outpatient (CLI) | payer BC, OTHER ==
[2022-01-02 23:18] LABS: BACTERIAL VAGINOSIS DNA NEGATIVE (NEGATIVE); CANDIDA GLABRATA DNA NEGATIVE (NEGATIVE); CANDIDA GROUP DNA NEGATIVE (NEGATIVE); CANDIDA KRUSEI DNA NEGATIVE (NEGATIVE); TRICHOMONAS VAGINALIS DNA NEGATIVE (NEGATIVE)
== END 2022-01-02 23:59 | disposition home or self-care (01) ==
LOC: LAB.WC 08:00
PROVIDERS: ATTEND Obstetrics & Gynecology
DX: O99.891 Other specified diseases and conditions complicating pregnancy (principal); N89.8 Other specified noninflammatory disorders of vagina; Z36.85 Encounter for antenatal screening for Streptococcus B
CPT/HCPCS: 81514; 87797

== ENCOUNTER 2022-01-17 21:07 | Outpatient (CLI) | payer BC, OTHER ==
[2022-01-17 21:30] VITALS: BP 110/67
--- NOTE | 2022-01-17 22:19 | Labor Flowsheet ---
Labor Flowsheet Datetime Report Generated by CPN: 01/17/2022 22:19 Datetime: 01/17/2022 21:24 VITAL SIGNS NBP Sys/Mehnaz/Mean (mmHg): 110 : 67 : 77 Pulse: 76 Datetime: 01/17/2022 21:20 COMMUNICATION Communication Comments: Covid Swab collected and sent to lab. Datetime: 12/15/2021 12:48 SpO2 (%): 100
--- NOTE | 2022-01-19 10:39 | PROCEDURE REPORT ---
- HPI Current EDU 01/25/22 Gestation 38 Weeks and 6 Days 3 Para 2 Vital Signs Temperature 97.5 F L 01/17/22 21:23 Heart Rate 78 01/17/22 21:23 Respiratory Rate 18 01/17/22 21:23 Blood Pressure 110/67 01/17/22 21:23 Temperature 97.5 F L 01/17/22 21:23 Heart Rate 78 01/17/22 21:23 Respiratory Rate 18 01/17/22 21:23 Blood Pressure 110/67 01/17/22 21:23 O2 Saturation - NST Procedure NST Procedure Start Date 01/17/22 Start Time 21:18 Stop Time 22:20 Vibroacoustic Stimulation Used No Patient States Movement Yes - Results and Plan Findings/Impression: NST is category 1 with baseline heart rate of 120s, moderate variability, and accelerations. Plan: Patient dismissed to home in good condition.
== END 2022-01-17 22:20 | disposition home or self-care (01) ==
LOC: WFO 21:07 → FBP 21:07 → WFO 22:20
PROVIDERS: ATTEND Obstetrics & Gynecology
DX: O36.8130 Decreased fetal movements, third trimester, not applicable or unspecified (principal); Z3A.38 38 weeks gestation of pregnancy
CPT/HCPCS: 59025; 99213

== ENCOUNTER 2022-01-19 07:39 | Inpatient (IN) | payer BC, OTHER ==
[2022-01-19] MEDS ORDERED: OXYTOCIN 10 UNIT/ML VIAL IM PRN (09:20)
[2022-01-19] MEDS ORDERED: TRANEXAMIC ACID IN NACL 1,000 MG/100 ML BAG IV PRN (09:20)
[2022-01-19] MEDS ORDERED: OXYTOCIN/SODIUM CHLORIDE 500 ML IV PRN (09:20)
[2022-01-19] MEDS ORDERED: CARBOPROST TROMETHAMINE 250 MCG/ML AMP IM PRN (09:20)
[2022-01-19] MEDS ORDERED: miSOPROStoL 200 MCG TABLET PR PRN ×2 (09:20)
[2022-01-19] MEDS ORDERED: LABETALOL 20 MG/4 ML SYRINGE IVP PRN (09:20)
[2022-01-19] MEDS ORDERED: SODIUM CHLORIDE FLUSH 0.9% 10 ML SYRINGE IVP PRN (09:20)
[2022-01-19] MEDS ORDERED: miSOPROStoL 200 MCG TABLET BC PRN (09:20)
[2022-01-19] MEDS ORDERED: hydrALAZINE INJ 20 MG/ML VIAL IVP PRN (09:20)
[2022-01-19] MEDS ORDERED: ONDANSETRON 4 MG/2 ML VIAL IVP PRN ×3 (09:20→14:29)
[2022-01-19] MEDS ORDERED: lidocaine 1% 20 ML MDV ID PRN (09:20)
[2022-01-19] MEDS ORDERED: METHYLERGONOVINE 0.2 MG/ML VIAL IM PRN ×2 (09:20)
--- NOTE | 2022-01-19 09:36 | HISTORY & PHYSICAL EXAMINATION ---
Admit History - Visit Reason Visit Reason: Other (Patient is a 26 year old female, at 39 weeks, 1 day gestation who is presenting for induction of labor due to history of hyperemesis during this . She is currently feeling well and denies of Covid symptoms. She had Covid infection approximately 1 month ago.) - : 3 Parity: 2 Care: positive: David Risk/History: positive: Labor induction, Other (History of hyperemesis) Complications This : positive: Gestational diabetes, Other (1. Hyperemisis persisted throughout the . 2. Diet controlled gestational DM. Class A1 3. Depression 4. Covid 19 in third trimester 5. Asthma) Smoking Status: Former smoker - Mother's Labs Mother's Blood Type: positive: A Mother's RH: positive: Positive GBS: positive: Group B Step Negative Rubella Status: positive: Immune Meds/Allgy - Home Medications Home Medications: Ambulatory Orders Medication Instructions Recorded Confirmed Doxylamine Succinate [Unisom] 25 mg PO HS 07/15/21 11/28/21 Metoclopramide [Reglan] 10 mg PO Q6H PRN 07/15/21 11/28/21 Pyridoxine HCl (Vitamin B6) 100 mg PO TID 07/15/21 11/28/21 [Vitamin B6] Ondansetron Odt [Zofran] 4 mg TL Q6H PRN #20 tablet 08/25/21 11/28/21 Pnv No.95/Ferrous Fum/Folic AC 1 each PO DAILY 11/28/21 11/28/21 [ Caplet] - Allergies Allergies/Adverse Reactions: Allergies Allergy/AdvReac Type Severity Reaction Status Date / Time prednisone AdvReac Anxiety Verified 08/25/21 09:10 Physical - Abdominal Exam Vital Signs: Temp Pulse Resp BP Pulse Ox 98.2 F 103 H 18 115/83 H 01/19/22 08:13 01/19/22 08:13 01/19/22 08:13 01/19/22 08:13 Contraction Intensity: positive: Mild, Other (Infrequent contractions.) Uterine Resting Tone: positive: Soft - Monitoring Strip Review: positive: Category I - Presentation Presentation: positive: Vertex - Vaginal Exam Membranes: positive: Membranes intact Station: positive: 0 Cervical Position: positive: Posterior Plan for Labor - Plan For Labor I expect patient to be DC'd or transferred within 96 hours.: Yes Plan for Labor: Patient is a 26 year old female, at 39 weeks, 1 day gestation who is presenting for induction of labor due to history of hyperemesis during this pre gnancy. She is currently feeling well and denies of Covid symptoms. She had Covid infection approximately 1 month ago. We discussed the risks, benefits, and methods of induction of labor. She had prior positive experience with Misoprostol and would like to initiate this protocol. We reviewed pain management options. She would like an epidural when appropriate. heart tone shows baseline of 125, moderate variability and accelerations, category 1.
[2022-01-19 09:55] LABS: BASOPHILS # (AUTO) 0.1 10^3/uL (0.0-0.1); BASOPHILS % (AUTO) 0.6 %; EOSINOPHILS # (AUTO) 0.1 10^3/uL (0.0-0.7); EOSINOPHILS % (AUTO) 0.8 %; HCT - HEMATOCRIT 31.9 % (37.0-47.0); HGB - HEMOGLOBIN 10.3 g/dL (12.0-16.0); LYMPHOCYTES # (AUTO) 3.4 10^3/uL (1.5-3.5); LYMPHOCYTES % (AUTO) 28.1 %; MEAN CORPUSCULAR HGB CONC 32.3 g/dL (32.0-36.0); MEAN CORPUSCULAR VOLUME 83.7 fL (81.0-99.0); MEAN PLATELET VOLUME 11.9 fL (7.9-10.8); MONOCYTES # (AUTO) 0.9 10^3/uL (0.0-1.0); MONOCYTES % (AUTO) 7.9 %; NEUTROPHILS # (AUTO) 7.4 10^3/uL (1.5-6.6); NEUTROPHILS % (AUTO) 62.3 %; PLT - PLATELET COUNT 371 10^3/uL (130-450); RED BLOOD COUNT 3.81 10^6/uL (4.20-5.40); RED CELL DISTRIBUTION WIDTH 14.4 % (12.0-15.0); WHITE BLOOD COUNT 11.9 x10^3/uL (4.8-10.8)
[2022-01-19] MEDS ORDERED: miSOPROStoL 100 MCG TABLET BC SCH (10:00)
[2022-01-19] MEDS: LACTATED RINGERS 1,000 ML IV SCH ×2 (12:15→15:18)
--- NOTE | 2022-01-19 12:27 | PROVIDER PROGRESS NOTE ---
Labor Progress Note - Uterine Monitoring Uterine Monitoring Mode: positive: External toco : 2-3 minutes Contraction Intensity: positive: Moderate, Tachysystole - Monitoring Monitor Mode: positive: Doppler/auscultation Heart Rate Variability: positive: Moderate (6-25 bmp) (Cervix is 6-7 cm dilated, 80% effaced, 0 station. AROM with meconium stained fluid. Patient reports stronger contractions.) Accelerations: positive: Present, 15x15 Decelerations: positive: None Strip Review: positive: Category I - Labor Progress Note Labor Progress Note/Additional Text: Cervix is 6-7 cm dilated, 80% effaced, 0 station. AROM with meconium stained fluid. Patient reports stronger contractions. Patient requests a labor epidural.
[2022-01-19] MEDS ORDERED: ROPIVACAINE 0.2% 200 MG/100 ML BAG EP ONE (12:48)
--- NOTE | 2022-01-19 13:16 | ANESTHESIA ---
Pre-Anesthesia VS, & Labs - Diagnosis active labor - Procedure labor epidural Vital Signs: Temp Pulse Resp BP Pulse Ox 36.8 C 103 H 18 115/83 H 99 01/19/22 08:13 01/19/22 08:13 01/19/22 08:13 01/19/22 08:13 01/19/22 08:08 Height: 5 ft 7 in Weight (kg): 74.933 kg Body Mass Index: 25.9 BMI Classification: Overweight - NPO Other - Is Patient ?: Yes - Lab Results Current Lab Results: Laboratory Tests 01/19/22 09:30: Blood Type A POSITIVE, Antibody Screen NEGATIVE 01/19/22 09:30: WBC 11.9 H, RBC 3.81 L, Hgb 10.3 L, Hct 31.9 L, MCV 83.7, MCH 27.0, MCHC 32.3, RDW 14.4, Plt Count 371, MPV 11.9 H, Neut # (Auto) 7.4 H, Lymph # (Auto) 3.4, [place] # (Auto) 0.9, Eos # (Auto) 0.1, Baso # (Auto) 0.1, Absolute Nucleated RBC 0.00, Nucleated RBC % 0.0 Fish Bones: 01/19/22 09:30 Home Medications and Allergies Active Medications Carboprost Tromethamine (Carboprost Tromethamine 250 Mcg/Ml Amp) 250 mcg IM Q15M PRN PRN Reason: Step 4: Hemorrhage protocol Stop: 01/24/22 09:21 Hydralazine HCl (Hydralazine Inj 20 Mg/Ml Vial) 10 mg IVP .ONCE PRN; Protocol PRN Reason: Step 9 of Labetalol protocol Stop: 01/24/22 09:28 Oxytocin/Sodium Chloride (Pitocin/Sodium Chloride) 500 mls @ 999 mls/hr IV PRN PRN PRN Reason: POST- HEMORR PREVENTION Stop: 01/24/22 09:21 Tranexamic Acid (Tranexamic 1,000 Mg/100ml-Nacl) 1,000 mg in 100 mls @ 600 mls/hr IV .ONCE PRN PRN Reason: EBL >1200mL and within 3hr Stop: 01/24/22 09:21 Oxytocin/Sodium Chloride (Pitocin/Sodium Chloride) 500 mls @ 999 mls/hr IV PRN PRN PRN Reason: POST- HEMORR PREVENTION Lactated Ringer's (Lr) 1,000 mls @ 100 mls/hr IV .Q10H [facility] Labetalol HCl (Labetalol 20 Mg/4 Ml Syringe) 20 - 80 mg IVP Q10M PRN; Protocol PRN Reason: SBP >160 or DBP >110 Lidocaine HCl (Lidocaine 1% 20 Ml Mdv) 20 ml ID .ONCE PRN PRN Reason: PERINEAL REPAIR Stop: 01/24/22 09:21 Methylergonovine Maleate (Methylergonovine 0.2 Mg/Ml Vial) 0.2 mg IM .ONCE PRN PRN Reason: Step 2: Hemorrhage protocol Stop: 01/24/22 09:21 Methylergonovine Maleate (Methylergonovine 0.2 Mg/Ml Vial) 0.2 mg IM Q4HR PRN PRN Reason: Post- Hemorrhage Misoprostol (Misoprostol 200 Mcg Tablet) 800 mcg BC .ONCE PRN PRN Reason: Step 3: Hemorrhage protocol Stop: 01/24/22 09:21 Misoprostol (Misoprostol 100 Mcg Tablet) 50 mcg BC Q4HR [facility] Last Admin: 01/19/22 10:01 Dose: 50 mcg Misoprostol (Misoprostol 200 Mcg Tablet) 800 mcg MI .ONCE PRN PRN Reason: Post- Hemorrhage Misoprostol (Misoprostol 200 Mcg Tablet) 600 mcg MI .ONCE PRN PRN Reason: post- hemorrhage Ondansetron HCl (Ondansetron 4 Mg/2 Ml Vial) 4 mg IVP Q4HR PRN PRN Reason: Nausea / Vomiting Oxytocin (Oxytocin 10 Unit/Ml Vial) 10 unit IM .ONCE PRN PRN Reason: Step one: If no IV access Stop: 01/24/22 09:21 Sodium Chloride (Sodium Chloride Flush 0.9% 10 Ml Syringe) 10 ml IVP 0100,0900,1700 [facility] Sodium Chloride (Sodium Chloride Flush 0.9% 10 Ml Syringe) 10 ml IVP PRN PRN PRN Reason: NEEDED PER PROVIDER ORDERS Doxylamine Succinate [Unisom] 25 mg PO HS 07/15/21 Metoclopramide [Reglan] 10 mg PO Q6H PRN 07/15/21 Pyridoxine HCl (Vitamin B6) [Vitamin B6] 100 mg PO TID 07/15/21 Pnv No.95/Ferrous Fum/Folic AC [ Caplet] 1 each PO DAILY 11/28/21 Allergies/Adverse Reactions: Allergies Allergy/AdvReac Type Severity Reaction Status Date / Time prednisone AdvReac Anxiety Verified 08/25/21 09:10 Anes History & Medical History - Anesthetic History Anesthesia Complications: reports: No previous complications Family history of Anesthesia Complications: Denies Family history of Malignant Hyperthermia: Denies - Medical History Cardiovascular: reports: None Pulmonary: reports: Asthma, Other (recent Covid) Gastrointestinal: reports: Hemorrhoids, Other (hyperemesis) Urinary: reports: None Neuro: reports: Migraines Musculoskeletal: reports: None Endocrine/Autoimmune: reports: None Blood Disorders: reports: Anemia Skin: reports: None Smoking Status: Former smoker - Surgical History General: reports: Other - Obstetrical History : 3 Parity: 2 Events: reports: Labor induction, Other (History of hyperemesis) Complications: reports: Gestational diabetes, Other (1. Hyperemisis persisted throughout the . 2. Diet controlled gestational DM. Class A1 3. Depression 4. Covid 19 in third trimester 5. Asthma) Exam General: Alert, Oriented x3, Moderate distress Dental: WNL Mouth Openin Fingerbreadth Neck Mobility: Normal Mallampati classification: I Thyromental Distance: 4-6 cm Respiratory: Lungs clear Plan Anesthesia Type: Epidural Consent for Procedure(s) Verified and Reviewed: Yes Code Status: Attempt Resuscitation ASA classification: 2-Mild systemic disease Is this case an emergency?: No
[2022-01-19] MEDS: OXYTOCIN/SODIUM CHLORIDE 500 ML IV PRN ×2 (13:19→14:04)
--- NOTE | 2022-01-19 13:22 | ANESTHESIA PROCEDURE NOTE ---
Anesthesia Epidural Template - Patient Report Patient Reports: positive: Inadequate control - Plan Plan: positive: Continue current management (pt started pushing within minutes of epidural placement at next ctxn, therefor unable to get comfortable in time)
[2022-01-19] MEDS ORDERED: ePHEDrine 50 MG/ML VIAL IVP PRN (13:23)
[2022-01-19] MEDS ORDERED: METOCLOPRAMIDE 10 MG/2 ML VIAL IVP PRN (13:23)
[2022-01-19] MEDS ORDERED: NALBUPHINE 10 MG/ML AMP IVP PRN (13:23)
[2022-01-19] MEDS ORDERED: NALOXONE 0.4 MG/ML VIAL IVP PRN (13:23)
[2022-01-19] MEDS ORDERED: diphenhydrAMINE INJ 50 MG/ML VIAL IVP PRN (13:23)
[2022-01-19] MEDS ORDERED: METOCLOPRAMIDE 10 MG TABLET PO PRN (13:56)
[2022-01-19] MEDS ORDERED: ONDANSETRON ODT 4 MG TABLET TL PRN (13:56)
[2022-01-19] MEDS ORDERED: WITCH HAZEL/GLYCERIN 1 PAD TOP PRN (14:29)
[2022-01-19] MEDS ORDERED: ZOLPIDEM 5 MG TABLET PO PRN (14:29)
[2022-01-19] MEDS ORDERED: diphenhydrAMINE 25 MG CAPSULE PO PRN (14:29)
[2022-01-19] MEDS: ACETAMINOPHEN 500 MG TABLET PO SCH ×2 (14:46→21:47)
[2022-01-19] MEDS: IBUPROFEN 600 MG TABLET PO SCH ×2 (14:48→21:47)
--- NOTE | 2022-01-19 14:48 | DELIVERY NOTE ---
Delivery Note - Labor Labor: positive: Augmented by ARM, Induced by ARM, Other (Misoprostol 50 mcg dose x 1.) - Delivery Method Delivery Method: positive: Spontaneous vaginal delivery - Cervical Ripening Method Cervical Ripening Method: positive: Misoprostil - Presentation Presentation: positive: Vertex, LOP - left occiput posterior - Nuchal Cord Nuchal Cord: positive: Present (2 nuchal which was compressable. Both were reduced before delivery.) - Anesthetic Anesthetic Type: Anesthetic: positive: Lidocaine - 1% plain Volume: positive: 5cc - Amniotic Fluid Description Amniotic Fluid Description: positive: Light meconium - Episiotomy Type Episiotomy Type: positive: None - Laceration Laceration: positive: 2nd degree, Perineal - Suture Suture Type: positive: Vicryl Suture Size: positive: 3-0 - Delivery Outcome Delivery Outcome: positive: Livebirth - [place] : positive: Placed in direct skin contact with mother, Bulb syringe (Bulb suction of oral), [place] used sex: positive: Male - Cord Cord: positive: 3 vessels, Other (Nuchal cord x 2, compressable.) - Placenta Placenta: positive: Intact, Spontaneous - Estimated Blood Loss Estimated Blood Loss (in cc): 400 - Post Delivery Events Post Delivery Events: positive: No post delivery events - Delivery Comments (Free Text/Narrative) Delivery Comments (Free Text/Narrative): .Patient is a 26-year-old female 3 now para 3-0-0-3 who presented to labor and delivery on January 19, 2022 for Cytotec induction of labor at 39 weeks and 1 day gestation due to history of hyperemesis during . Her cervix was already 3 cm dilated, 70% effaced, 0 station with an adequate pelvis proven to 8 pounds 2 ounces on a prior delivery. The risk and benefits of induction of labor were reviewed with the patient she received a single 50 mcg dose of misoprostol. Artificial rupture membranes with meconium stained fluid was also completed. Following artificial rupture membranes patient progressed rapidly. A labor epidural was attempted. However at this stage the patient was already complete following the epidural placement. She was positioned and prepared for second stage of labor. A spontaneous vaginal delivery of a vigorously crying male was noted. The present in the left occiput posterior position. A nuchal cord x2 was noted and reduced without difficulty. The cord was compressible. Following delivery of the left anterior shoulder and the posterior right shoulder, the infant was then handed to the waiting nursery staff who took care of the infant at the mother's bedside on her chest. Vigorous cry was noted. The infant was dried with a towel. After a 1 minute delayed, the umbilical cord was clamped and cut. A section of the umbilical cord was also provided for blood gases. The placenta was delivered intact spontaneously with a three-vessel centrally inserted cord. The perineum was inspected. A second-degree midline perineal laceration was noted. The perineum was injected with 1% lidocaine approximately 5 to 6 cc was used. The midline perineal laceration was repaired using 3-0 Vicryl sutures in a normal fashion. Excellent hemostasis was obtained attained. care instructions were reviewed with the patient. Second stage of labor was noted for several minute period where heart tones were poorly tracked with bradycardia into the 90s may be present. Cord gases was obtained for this reason. Patient began pushing efforts at 1309 hrs. The was delivered at 1314 hrs. The placenta was delivered spontaneously at 1319 hrs. on January 19, 2022. The cervix was complete at 1301 hours. care instructions were reviewed with the patient preoperative care instructions were discussed in preparation for a desired bilateral tubal ligation.
[2022-01-19] MEDS ORDERED: LACTATED RINGERS 1,000 ML IV SCH (15:00)
[2022-01-19] MEDS ORDERED: SODIUM CHLORIDE FLUSH 0.9% 10 ML SYRINGE IVP SCH (17:00)
[2022-01-19] MEDS: DOXYLAMINE 25 MG TABLET PO SCH (21:56)
[2022-01-19] MEDS: PYRIDOXINE 100 MG TABLET PO SCH (21:57)
[2022-01-19] MEDS: DOCUSATE SODIUM 100 MG CAPSULE PO SCH (21:57)
[2022-01-19] MEDS: oxyCODONE 5 MG TABLET PO PRN (22:46)
[2022-01-20] MEDS: IBUPROFEN 600 MG TABLET PO SCH ×3 (05:24→18:31)
[2022-01-20] MEDS: oxyCODONE 5 MG TABLET PO PRN ×2 (05:24→20:59)
[2022-01-20 05:41] LABS: BASOPHILS % (AUTO) 0.4 %; EOSINOPHILS % (AUTO) 0.7 %; HCT - HEMATOCRIT 27.3 % (37.0-47.0); HGB - HEMOGLOBIN 8.8 g/dL (12.0-16.0); LYMPHOCYTES % (AUTO) 29.1 %; MEAN CORPUSCULAR HEMOGLOBIN 27.1 pg (27.0-31.0); MEAN CORPUSCULAR HGB CONC 32.2 g/dL (32.0-36.0); MEAN PLATELET VOLUME 11.9 fL (7.9-10.8); NEUTROPHILS % (AUTO) 61.5 %; PLT - PLATELET COUNT 293 10^3/uL (130-450); RED BLOOD COUNT 3.25 10^6/uL (4.20-5.40); RED CELL DISTRIBUTION WIDTH 14.5 % (12.0-15.0); WHITE BLOOD COUNT 15.4 x10^3/uL (4.8-10.8)
[2022-01-20 05:46] LABS: ABNORMAL LYMPHS % (MANUAL) 0 %; BAND NEUTROPHILS % (MANUAL) 0 %
[2022-01-20 05:59] LABS: DIFFERENTIAL COMMENT MANUAL DIFFERENTIAL; LYMPHOCYTES # (MANUAL) 5.2 10^3/uL (1.5-3.5); LYMPHOCYTES % (MANUAL) 34 %; MONOCYTES # (MANUAL) 0.8 10^3/uL (0.0-1.0); NEUTROPHILS # (MANUAL) 9.4 10^3/uL (1.5-6.6); PLATELET ESTIMATE, MANUAL NORMAL (130-450,000) (NORMAL); PLATELET MORPHOLOGY NORMAL APPEARANCE (NORMAL); RBC MORPHOLOGY (MULTIPLE) NORMAL APPEARANCE (NORMAL); WBC MORPHOLOGY (MULTIPLE) NORMAL APPEARANCE (NORMAL)
[2022-01-20] MEDS ORDERED: PROPOFOL 200 MG/20 ML VIAL IVP ONE (07:17)
[2022-01-20] MEDS ORDERED: ROCURONIUM 50 MG/5 ML VIAL ONE (07:18)
[2022-01-20] MEDS ORDERED: LIDOCAINE-MPF 2% 5 ML VIAL ONE (07:18)
[2022-01-20] MEDS ORDERED: DEXAMETHASONE 4 MG/ML VIAL ONE (07:19)
[2022-01-20] MEDS ORDERED: ONDANSETRON 4 MG/2 ML VIAL ONE (07:19)
[2022-01-20] MEDS ORDERED: fentaNYL 100 MCG/2 ML VIAL ONE (07:19)
--- NOTE | 2022-01-20 07:22 | PROVIDER PROGRESS NOTE ---
Subjective - Prog Note Date Prog Note Date: 01/20/22 Prog Note Time: 07:15 - Subjective Subjective: Subjective Patient reports she is doing well. Lochia appropriate. Denies heavy bleeding. Ambulating. Pelvic and abdominal pain well-controlled. Tolerating oral intake. Diet: Regular. Voiding without difficulty. Passing flatus. Denies BM. Patient is bonding with baby in room Denies feeling lightheaded, dizzy or excessively fatigued. Control: Desires permanent sterility Objective General: Alert, oriented, no apparent distress. Cardiovascular: Regular rate. Regular rhythm. Lungs: No increased work of breathing. Clear to auscultation bilaterally. Abdomen: Uterus firm. Below umbilicus. No guarding or rebound. Assessment and Plan day 1. -Routine care -Anticipate discharge tomorrow Desires permanent sterility -Previously discussed tubal ligation I would like to proceed today. Has been n.p.o. since midnight. Uterus is firm and below umbilicus. -Plan for tubal ligation via mini laparotomy today. Discussed the risk, benefits, alternatives to this. Discussed the risk of bleeding, infect ion, damage to other organs. We also discussed the risk of regret, but patient is certain she wants to proceed and will go to the OR this morning. Objective - Vital Signs/Intake & Output Vital Signs: Vital Signs x48h Temp Pulse Resp BP Pulse Ox 01/20/22 02:00 98.2 F 79 20 112/55 L 99 Intake & Output: Intake & Output 01/17/22 01/18/22 01/19/22 01/20/22 23:59 23:59 23:59 23:59 Intake Total 1880 500 Output Total 25 500 Balance 1855 0 - Lab Results Fish Bones: 01/20/22 05:27 Other Labs: Lab Results x24hrs 01/20/22 01/19/22 01/19/22 Range/Units 05:27 09:30 09:30 WBC 15.4 H 11.9 H (4.8-10.8) x10^3/uL RBC 3.25 L 3.81 L (4.20-5.40) 10^6/uL Hgb 8.8 L 10.3 L (12.0-16.0) g/dL Hct 27.3 L 31.9 L (37.0-47.0) % MCV 84.0 83.7 (81.0-99.0) fL MCH 27.1 27.0 (27.0-31.0) pg MCHC 32.2 32.3 (32.0-36.0) g/dL RDW 14.5 14.4 (12.0-15.0) % Plt Count 293 371 (130-450) 10^3/uL MPV 11.9 H 11.9 H (7.9-10.8) fL Neut # (Auto) Not Reportable 7.4 H (1.5-6.6) 10^3/uL Lymph # (Auto) Not Reportable 3.4 (1.5-3.5) 10^3/uL [place] # (Auto) Not Reportable 0.9 (0.0-1.0) 10^3/uL Eos # (Auto) Not Reportable 0.1 (0.0-0.7) 10^3/uL Baso # (Auto) Not Reportable 0.1 (0.0-0.1) 10^3/uL Absolute Nucleated RBC Not Reportable 0.00 x10^3/uL Total Counted 100 Band Neuts % (Manual) 0 (0 - 10) % Abnorm Lymph % (Manual) 0 % Nucleated RBC % Not Reportable 0.0 /100WBC Neutrophils # (Manual) 9.4 H (1.5-6.6) 10^3/uL Lymphocytes # (Manual) 5.2 H (1.5-3.5) 10^3/uL Monocytes # (Manual) 0.8 (0.0-1.0) 10^3/uL Eosinophils # (Manual) 0.0 (0-0.7) 10^3/uL Basophils # (Manual) 0.0 (0-0.1) 10^3/uL Differential Comment MANUAL DIFFERENTIAL WBC Morphology NORMAL APPEARANCE (NORMAL) Platelet Estimate NORMAL (130-450,000) (NORMAL) Platelet Morphology NORMAL APPEARANCE (NORMAL) RBC Morph Micro Appear NORMAL APPEARANCE (NORMAL) Blood Type A POSITIVE Antibody Screen NEGATIVE
[2022-01-20] MEDS ORDERED: LIDOCAINE MPF 2%-EPI 1:200000 20 ML VIAL ONE (07:24)
[2022-01-20] MEDS ORDERED: LIDOCAINE 2%-EPI 1:100000 20 ML MDV ONE (07:24)
[2022-01-20] MEDS ORDERED: BUPIVACAINE 0.25% PF 10 ML VIAL ONE (07:25)
[2022-01-20] MEDS ORDERED: BUPIVACAINE 0.5% PF 30 ML VIAL ONE (07:25)
--- NOTE | 2022-01-20 07:30 | ANESTHESIA ---
Pre-Anesthesia VS, & Labs - Diagnosis desires sterilization - Procedure bilateral salpingectomy Vital Signs: Temp Pulse Resp BP Pulse Ox 36.8 C 79 20 112/55 L 99 01/20/22 02:00 01/20/22 02:00 01/20/22 02:00 01/20/22 02:00 01/20/22 02:00 Height: 5 ft 7 in Weight (kg): 74.933 kg Body Mass Index: 25.9 BMI Classification: Overweight - NPO >8 hours - Is Patient ?: No - Lab Results Current Lab Results: Laboratory Tests 01/20/22 05:27: WBC 15.4 H, RBC 3.25 L, Hgb 8.8 L, Hct 27.3 L, MCV 84.0, MCH 27.1, MCHC 32.2, RDW 14.5, Plt Count 293, MPV 11.9 H, Neut # (Auto) Not Reportable, Lymph # (Auto) Not Reportable, [place] # (Auto) Not Reportable, Eos # (Auto) Not Reportable, Baso # (Auto) Not Reportable, Absolute Nucleated RBC Not Reportable, Total Counted 100, Band Neuts % (Manual) 0, Abnorm Lymph % (Manual) 0, Nucleated RBC % Not Reportable, Neutrophils # (Manual) 9.4 H, Lymphocytes # (Manual) 5.2 H, Monocytes # (Manual) 0.8, Eosinophils # (Manual) 0.0, Basophils # (Manual) 0.0, Differential Comment MANUAL DIFFERENTIAL, WBC Morphology NORMAL APPEARANCE, Platelet Estimate NORMAL (130-450,000), Platelet Morphology NORMAL APPEARANCE, RBC Morph Micro Appear NORMAL APPEARANCE 01/19/22 09:30: Blood Type A POSITIVE, Antibody Screen NEGATIVE 01/19/22 09:30: WBC 11.9 H, RBC 3.81 L, Hgb 10.3 L, Hct 31.9 L, MCV 83.7, MCH 27.0, MCHC 32.3, RDW 14.4, Plt Count 371, MPV 11.9 H, Neut # (Auto) 7.4 H, Lymph # (Auto) 3.4, [place] # (Auto) 0.9, Eos # (Auto) 0.1, Baso # (Auto) 0.1, Absolute Nucleated RBC 0.00, Nucleated RBC % 0.0 Fish Bones: 01/20/22 05:27 Home Medications and Allergies Active Medications Acetaminophen (Acetaminophen 500 Mg Tablet) 1,000 mg PO Q8H [facility] Last Admin: 01/19/22 21:47 Dose: 1,000 mg Carboprost Tromethamine (Carboprost Tromethamine 250 Mcg/Ml Amp) 250 mcg IM Q15M PRN PRN Reason: Step 4: Hemorrhage protocol Stop: 01/24/22 09:21 Diphenhydramine HCl (Diphenhydramine Inj 50 Mg/Ml Vial) 12.5 - 25 mg IVP Q6HR PRN PRN Reason: ITCHING Diphenhydramine HCl (Diphenhydramine 25 Mg Capsule) 25 mg PO Q6H PRN PRN Reason: ITCHING Docusate Sodium (Docusate Sodium 100 Mg Capsule) 100 mg PO BID [facility] Last Admin: 01/19/22 21:57 Dose: Not Given Doxylamine Succinate (Doxylamine 25 Mg Tablet) 25 mg PO HS [facility] Last Admin: 01/19/22 21:56 Dose: Not Given Ephedrine Sulfate (Ephedrine 50 Mg/Ml Vial) 5 mg IVP Q5M PRN PRN Reason: For SBP<100;give until SBP>100 Hydralazine HCl (Hydralazine Inj 20 Mg/Ml Vial) 10 mg IVP .ONCE PRN; Protocol PRN Reason: Step 9 of Labetalol protocol Stop: 01/24/22 09:28 Oxytocin/Sodium Chloride (Pitocin/Sodium Chloride) 500 mls @ 999 mls/hr IV PRN PRN PRN Reason: POST- HEMORR PREVENTION Stop: 01/24/22 09:21 Last Titration: 01/19/22 16:24 Dose: Infused Tranexamic Acid (Tranexamic 1,000 Mg/100ml-Nacl) 1,000 mg in 100 mls @ 600 mls/hr IV .ONCE PRN PRN Reason: EBL >1200mL and within 3hr Stop: 01/24/22 09:21 Oxytocin/Sodium Chloride (Pitocin/Sodium Chloride) 500 mls @ 999 mls/hr IV PRN PRN PRN Reason: POST- HEMORR PREVENTION Lactated Ringer's (Lr) 1,000 mls @ 100 mls/hr IV .Q10H [facility] Last Infusion: 01/19/22 18:33 Dose: 0 mls/hr Ibuprofen (Ibuprofen 600 Mg Tablet) 600 mg PO Q6H [facility] Last Admin: 01/20/22 05:24 Dose: 600 mg Labetalol HCl (Labetalol 20 Mg/4 Ml Syringe) 20 - 80 mg IVP Q10M PRN; Protocol PRN Reason: SBP >160 or DBP >110 Lidocaine HCl (Lidocaine 1% 20 Ml Mdv) 20 ml ID .ONCE PRN PRN Reason: PERINEAL REPAIR Stop: 01/24/22 09:21 Last Admin: 01/19/22 18:28 Dose: 20 ml Methylergonovine Maleate (Methylergonovine 0.2 Mg/Ml Vial) 0.2 mg IM .ONCE PRN PRN Reason: Step 2: Hemorrhage protocol Stop: 01/24/22 09:21 Methylergonovine Maleate (Methylergonovine 0.2 Mg/Ml Vial) 0.2 mg IM Q4HR PRN PRN Reason: Post- Hemorrhage Metoclopramide HCl (Metoclopramide 10 Mg/2 Ml Vial) 10 mg IVP Q6HR PRN PRN Reason: Nausea / Vomiting Metoclopramide HCl (Metoclopramide 10 Mg Tablet) 10 mg PO Q6H PRN PRN Reason: Nausea / Vomiting Misoprostol (Misoprostol 200 Mcg Tablet) 800 mcg BC .ONCE PRN PRN Reason: Step 3: Hemorrhage protocol Stop: 01/24/22 09:21 Misoprostol (Misoprostol 100 Mcg Tablet) 50 mcg BC Q4HR [facility] Last Admin: 01/19/22 10:01 Dose: 50 mcg Misoprostol (Misoprostol 200 Mcg Tablet) 800 mcg [place] .ONCE PRN PRN Reason: Post- Hemorrhage Misoprostol (Misoprostol 200 Mcg Tablet) 600 mcg [place] .ONCE PRN PRN Reason: post- hemorrhage Nalbuphine HCl (Nalbuphine 10 Mg/Ml Amp) 2.5 - 5 mg IVP Q4H PRN PRN Reason: ITCHING Naloxone HCl (Naloxone 0.4 Mg/Ml Vial) 0.1 mg IVP Q2M PRN PRN Reason: RR<8 Ondansetron HCl (Ondansetron 4 Mg/2 Ml Vial) 4 mg IVP Q4HR PRN PRN Reason: Nausea / Vomiting Ondansetron HCl (Ondansetron 4 Mg/2 Ml Vial) 4 mg IVP Q6HR PRN PRN Reason: Nausea / Vomiting Ondansetron HCl (Ondansetron Odt 4 Mg Tablet) 4 mg TL Q6H PRN PRN Reason: Nausea / Vomiting Ondansetron HCl (Ondansetron 4 Mg/2 Ml Vial) 4 mg IVP Q6HR PRN PRN Reason: Nausea / Vomiting Oxycodone HCl (Oxycodone 5 Mg Tablet) 5 mg PO Q4HR PRN PRN Reason: Severe Pain Last Admin: 01/20/22 05:24 Dose: 5 mg Oxytocin (Oxytocin 10 Unit/Ml Vial) 10 unit IM .ONCE PRN PRN Reason: Step one: If no IV access Stop: 01/24/22 09:21 Multivit/Folic Acid/Iron ( Vitamin Tablet) 1 tab PO DAILYWM [facility] Pyridoxine HCl (Pyridoxine 100 Mg Tablet) 100 mg PO TID [facility] Last Admin: 01/19/22 21:57 Dose: Not Given Sodium Chloride (Sodium Chloride Flush 0.9% 10 Ml Syringe) 10 ml IVP 0100,0900,1700 [facility] Last Admin: 01/20/22 05:25 Dose: 10 ml Sodium Chloride (Sodium Chloride Flush 0.9% 10 Ml Syringe) 10 ml IVP PRN PRN PRN Reason: NEEDED PER PROVIDER ORDERS [place]re/Glycerin (Witch Bere/Glycerin 1 Pad) 1 pad TOP QID PRN PRN Reason: ITCHING Zolpidem Tartrate (Zolpidem 5 Mg Tablet) 10 mg PO QPM PRN PRN Reason: Insomnia Doxylamine Succinate [Unisom] 25 mg PO HS 07/15/21 Metoclopramide [Reglan] 10 mg PO Q6H PRN 07/15/21 Pyridoxine HCl (Vitamin B6) [Vitamin B6] 100 mg PO TID 07/15/21 Pnv No.95/Ferrous Fum/Folic AC [ Caplet] 1 each PO DAILY 11/28/21 Allergies/Adverse Reactions: Allergies Allergy/AdvReac Type Severity Reaction Status Date / Time prednisone AdvReac Anxiety Verified 08/25/21 09:10 Anes History & Medical History - Anesthetic History Anesthesia Complications: reports: No previous complications - Medical History Cardiovascular: reports: None Pulmonary: reports: Asthma, Other (recent Covid) Gastrointestinal: reports: Hemorrhoids, Other (hyperemesis) Urinary: reports: None Neuro: reports: Migraines Musculoskeletal: reports: None Endocrine/Autoimmune: reports: None Blood Disorders: reports: Anemia Skin: reports: None Smoking Status: Former smoker Psychosocial: reports: No issues indicated History of Cancer?: No - Surgical History General: reports: EGD, Other - Obstetrical History : 3 Parity: 3 Events: reports: Labor induction, Other (History of hyperemesis) Complications: reports: Gestational diabetes, Other (1. Hyperemisis persisted throughout the . 2. Diet controlled gestational DM. Class A1 3. Depression 4. Covid 19 in third trimester 5. Asthma) Exam General: Alert, Oriented x3, Cooperative, No acute distress Dental: WNL Mouth Openin Fingerbreadth Neck Mobility: Normal Mallampati classification: II Thyromental Distance: 4-6 cm Mental/Cognitive Status: Alert/Oriented X3, Normal for patient Plan Anesthesia Type: Spinal Consent for Procedure(s) Verified and Reviewed: Yes Code Status: Attempt Resuscitation ASA classification: 2-Mild systemic disease Is this case an emergency?: No
[2022-01-20] MEDS ORDERED: PHENYLEPHRINE 10 MG/ML VIAL ONE (07:34)
[2022-01-20] MEDS ORDERED: PROPOFOL 500 MG/50 ML 500 MG/50 ML VIAL ONE (07:37)
[2022-01-20] MEDS ORDERED: MIDAZOLAM 2 MG/2 ML VIAL ONE (07:40)
[2022-01-20] MEDS ORDERED: PRENATAL VITAMIN TABLET PO SCH (08:00)
[2022-01-20] MEDS ORDERED: ceFAZolin 1 GM VIAL ONE (08:13)
[2022-01-20] MEDS ORDERED: BUPIVACAINE 0.5% PF 30 ML VIAL INFIL ONE ×2 (08:18)
[2022-01-20] MEDS ORDERED: LIDOCAINE MPF 2%-EPI 1:200000 20 ML VIAL SUBQ ONE ×2 (08:18)
[2022-01-20] MEDS ORDERED: LACTATED RINGERS 1,000 ML IV ONE (08:50)
[2022-01-20] MEDS ORDERED: SUGAMMADEX 200 MG/2 ML VIAL IVP ONE (08:51)
[2022-01-20] MEDS ORDERED: fentaNYL 100 MCG/2 ML VIAL IVP PRN ×2 (08:57→09:17)
[2022-01-20] MEDS ORDERED: NALOXONE 0.4 MG/ML VIAL IVP PRN ×2 (08:57→09:17)
[2022-01-20] MEDS ORDERED: ONDANSETRON 4 MG/2 ML VIAL IVP PRN ×2 (08:57→09:17)
[2022-01-20] MEDS ORDERED: ATROPINE ABBOJECT 1 MG/10 ML SYRINGE IVP PRN ×2 (08:57→09:16)
[2022-01-20] MEDS ORDERED: HYDROmorphone 0.5 MG/0.5 ML SYRINGE IVP PRN ×2 (08:57→09:17)
[2022-01-20] MEDS ORDERED: MORPHINE 2 MG/ML CARPUJECT IVP PRN ×2 (08:57→09:17)
[2022-01-20] MEDS ORDERED: KETOROLAC 30 MG/ML VIAL ONE (08:59)
[2022-01-20] MEDS ORDERED: LACTATED RINGERS 1,000 ML IV SCH ×2 (09:00→09:17)
--- NOTE | 2022-01-20 09:01 | OPERATIVE REPORT ---
Operative Report - General Admit Date: 01/19/22 Procedure Date: 01/20/22 Planned Procedure: partial salpingectomy Pre-Op Diagnosis: Desires permanent sterility Procedure Performed: partial salpingectomy Post Op Diagnosis: Same - Procedure Note Primary Surgeon: Ben Osman MD Secondary Surgeon: Nik Knox MD Anesthesia Provider: Jose Narayanan CRNA Anesthesia Technique: General ET tube Pathology: Bilateral fallopian tube segments Estimated Blood Loss (mL): 5 Complications: None - Other Other Information/Narrative: Tubal Prior to surgery, we discussed the risks, alternatives, benefits to tubal ligation. We discussed long-acting control such as IUDs and implants. We had discussion about partner vasectomy and the pros and cons to this including a smaller surgery, and easier recovery. We discussed the general risk of surgery including infection, bleeding, damage to other organs, needing a larger incis ion. Specific to tubal ligation, we discussed the risk of regret, and discussed that regret is greater in those under 30, without children, and not in stable relationships. Patient says she is confident in her decision to not have any more children. We also discussed the risk of failure, and that less than 1/100 tubal ligation fail, but if it did, she would be at increased risk of ectopic . Patient desires to proceed with bilateral tubal ligation. Patient was taken to the OR where spinal anesthesia was attempted, but patient was still complaining of pain, so general anesthesia was obtained. The patient was in a dorsal supine position. Abdomen was prepped and draped in usual sterile fashion. 2 Allis clamps were placed lateral umbilical folds, and lateral traction was applied to facilitate making an infraumbilical skin incision with scalpel. Incision was carried down to the fascia which was incised with Wisdom scissors. Peritoneum was identified and entered. Was noted to be free of any adhesions was entered bluntly. Patient's right fallopian tube was then identified and brought to the incision and grasped with a [place] clamp. The tube was then followed up to the fimbria. The [place] clamp was then used to grasp the tube approximately 4 cm from the cornua region. A second Gianluca clamps position approximately 3 cm from the first clamp. A window was created in the mesosalpinx using Bovie tip. The 3 cm segment of the tube was then ligated both ends using a free tie of 0 chromic. The tube segment was then excised using Metzenbaum scissors. Tube ostia was visualized, good hemostasis was noted, and the tube was returned the abdomen. The left fallopian tube was then ligated and excised in similar fashion. Tube ostia were visualized, good hemostasis noted, and the tube was returned to the abdomen. The peritoneum and fascia were then closed in single layer using a 0 Vicryl. The umbilical stalk was then reattached to the underlying tissue with a 2-0 Vicryl. Skin was closed with a 4-0 Monocryl in a subcuticular fashion. The patient tolerated procedure well. Sponge, lap, and needle counts were correct 2. The patient was taken to recovery room in stable condition.
[2022-01-20] MEDS ORDERED: HYDROmorphone 0.5 MG/0.5 ML SYRINGE ONE (09:19)
[2022-01-20] MEDS: ACETAMINOPHEN 500 MG TABLET PO SCH ×2 (11:03→19:08)
--- NOTE | 2022-01-20 14:25 | ANESTHESIA POST OP EVALUATION ---
Anesthesia Post Eval - Post Anesthesia Eval Vitals: Last Vital Signs Temp 36.5 C 01/20/22 12:12 Pulse 89 01/20/22 12:12 Resp 18 01/20/22 12:12 BP 135/86 H 01/20/22 12:12 Pulse Ox 100 01/20/22 12:12 CV Function Including HR & BP: Stable Pain Control: Satisfactory Nausea & Vomiting: Negative Mental Status: Baseline Respiratory Status: Airway Patent Hydration Status: Satisfactory Anesthesia Complications: None
[2022-01-20] MEDS: PYRIDOXINE 100 MG TABLET PO SCH ×2 (14:34→15:16)
[2022-01-20] MEDS: DOCUSATE SODIUM 100 MG CAPSULE PO SCH ×2 (15:16→20:59)
[2022-01-21] MEDS: IBUPROFEN 600 MG TABLET PO SCH ×3 (00:03→10:58)
[2022-01-21] MEDS: ACETAMINOPHEN 500 MG TABLET PO SCH ×2 (03:08→11:00)
[2022-01-21] MEDS: oxyCODONE 5 MG TABLET PO PRN ×2 (03:09→07:56)
--- NOTE | 2022-01-21 04:33 | Discharge Plan ---
Discharge Plan Problem Reviewed?: Yes Disposition: Home, Self Care Condition: Good Prescriptions: Ibuprofen [Motrin] 600 mg PO Q6H PRN #30 tab PRN Reason: Pain oxyCODONE [Roxicodone] 2.5 - 5 mg PO Q4H PRN #5 tablet PRN Reason: Severe Pain Diet: Regular Activity Restrictions: Additional Comments Shower Restrictions: No Driving Restrictions: Yes (for two weeks and while taking opioid pain medications) Instruction Topics: Vaginal After No Smoking: If you smoke, Please STOP! Call for help. Follow-up with: LILLY IZQUIERDO DO [Primary Care Provider] -
--- NOTE | 2022-01-21 04:35 | DISCHARGE SUMMARY ---
Discharge Summary Admit Date: 01/19/22 Discharge Date: 01/21/22 Discharging Provider: Ben Osman MD Code Status: Attempt Resuscitation Condition at Discharge: Good Discharge Disposition: 01 Home, Self Care - DIAGNOSES Admission Diagnoses: 39 weeks gestation Induction of labor Desires sterility Discharge Diagnoses with Status of Each Condition: 39 weeks induction: Delivered induction of labor: Delivered Desires sterility: Status post bilateral partial salpingectomy - HPI History of Present Illness: Subjective Patient reports she is doing well. Lochia appropriate. Denies heavy bleeding. Ambulating. Pelvic and abdominal pain well-controlled. Tolerating oral intake. Diet: Regular. Voiding without difficulty. Passing flatus. Denies BM. Patient is bonding with baby in room Breast feeding going well. Denies feeling lightheaded, dizzy or excessively fatigued. Control: Status post tubal ligation Objective General: Alert, oriented, no apparent distress. Cardiovascular: Regular rate. Regular rhythm. Lungs: No increased work of breathing. Abdomen: Uterus firm. Below umbilicus. Moderate tenderness, worst at right edge of incision. Incision: Clean, dry, and intact. - HOSPITAL COURSE Hospital Course: Patient is a 26-year-old -0-0-2 who presented at 39 weeks 1 day gestation for induction of labor. She had an uneventful vaginal delivery. On post day 1, she had a tubal ligation. Surgery was unremarkable. day 2, she was having moderate mount of abdominal pain, worse at the border of the incision site, but ultrasound showed no free fluid in the belly. She was having vaginal pain and hip pain, so she folic everything hit her at once, but with pain medications, pain is well controlled. Her pain did start several weeks before delivery and did not worsen afterwards. Plan to follow-up on this and will likely improve after discharge. Baby was doing well, and mother baby were discharged together on day 2. - ALLERGIES Allergies/Adverse Reactions: Allergies Allergy/AdvReac Type Severity Reaction Status Date / Time prednisone AdvReac Anxiety Verified 08/25/21 09:10 - MEDICATIONS Home Medications: Ambulatory Orders Medication Instructions Recorded Confirmed Doxylamine Succinate [Unisom] 25 mg PO HS 07/15/21 11/28/21 Metoclopramide [Reglan] 10 mg PO Q6H PRN 07/15/21 11/28/21 Pyridoxine HCl (Vitamin B6) 100 mg PO TID 07/15/21 11/28/21 [Vitamin B6] Ondansetron Odt [Zofran] 4 mg TL Q6H PRN #20 tablet 08/25/21 11/28/21 Pnv No.95/Ferrous Fum/Folic AC 1 each PO DAILY 11/28/21 11/28/21 [ Caplet] Ibuprofen [Motrin] 600 mg PO Q6H PRN #30 tab 01/21/22 oxyCODONE [Roxicodone] 2.5 - 5 mg PO Q4H PRN #5 tablet 01/21/22 - LABS Result Diagrams: 01/20/22 05:27 - FOLLOW UP Follow Up: Follow-up with Ben Osman MD in 1 week at [facility] - TIME SPENT Time Spent in Discharge (Minutes): 30
[2022-01-21] MEDS: PYRIDOXINE 100 MG TABLET PO SCH (05:16)
[2022-01-21] MEDS: DOXYLAMINE 25 MG TABLET PO SCH (05:17)
[2022-01-21] MEDS: DOCUSATE SODIUM 100 MG CAPSULE PO SCH (08:02)
[2022-01-21 10:19] VITALS: BP 113/76
--- NOTE | 2022-01-21 12:52 | Labor Flowsheet ---
Labor Flowsheet Datetime Report Generated by CPN: 01/21/2022 12:51 Datetime: 01/21/2022 08:01 VITAL SIGNS NBP Sys/Mehnaz/Mean (mmHg): 113 : 76 : 85 Pulse: 84 Datetime: 01/19/2022 16:06 Membranes Ruptured Date/Time: 01/19/2022 12:18 Datetime: 01/19/2022 15:19 Stage of : Datetime: 01/19/2022 13:19 MEDICATIONS Pitocin (milliunits): Started @ 999 Stage 2 Comments: placenta Datetime: 01/19/2022 13:14 UTERINE ACTIVITY Monitor Mode: External Frequency (min): 2-3 Quality: Strong Duration (sec): 60-80 Pattern: Normal: <= 5 Contractions in 10 Minutes Resting Tone (Palpate): Relaxed ASSESSMENT A Monitor Mode: External US FHR Baseline Rate : 120 Variability: Moderate 6-25 bpm Accelerations: 15X15 Decelerations: Variable Category: Category II Datetime: 01/19/2022 13:13 Actions for Decelerations: Oxygen Applied Oxygen Amount (LPM): 10 Datetime: 01/19/2022 13:12 Pushing Progress: with Pushing Datetime: 01/19/2022 13:10 PATIENT CARE IV/Blood Work: IV Bolus Started LaborFlag: Labor Datetime: 01/19/2022 13:09 STAGE 2 Pushing: Involuntary Pushing Pushing Position: Pushing with Contractions; Pushing Lithotomy Datetime: 01/19/2022 13:08 Patient Position/Activity: High Fowlers Datetime: 01/19/2022 13:01 VAGINAL EXAM Dilatation (cm): 10.0 Exam by: DrPam Knox Vaginal Exam Comments: Per provider, anterior lip Datetime: 01/19/2022 13:00 Monitor Interventions for FHR: Ultrasound Adjusted Comments: difficulty tracing FHR consistently d/t maternal positioning for epidural and frequent mo vement. COMMUNICATION Communication: Provider at Bedside Datetime: 01/19/2022 12:55 Pain Presence: Constant Pain Location: Abdomen; Back Datetime: 01/19/2022 12:51 Respirations: 22 SpO2 (%): 99 Datetime: 01/19/2022 12:50 Pain Coping: Writhing Datetime: 01/19/2022 12:46 Epidural Procedure: Test Dose Datetime: 01/19/2022 12:45 PROCEDURE TIME OUT Procedure Verify: Correct Patient Identity; Correct Side and Site are Marked; Accurate Procedure Co nsent Form; Agreement on Procedure to be Done; Correct Patient Position ANESTHESIA Anesthesia Plans: Epidural Epidural Positioning: Sitting Datetime: 01/19/2022 12:40 PAIN Pain Scale: 10 Pain Type: Contraction Pain Relief Measures: Comfort Measures Pain Assessment Comments: Patient using Nitrous Oxide at the bedside Datetime: 01/19/2022 12:28 Medication Comments: Nitrous oxide at the bedside Datetime: 01/19/2022 12:25 Comfort Measures: Anesthesia Notified Communication Comments[facility] Datetime: 01/19/2022 12:18 Effacement (%): 80 Station: 0 Membrane Status: Ruptured Membranes Rupture Method: Artificial Amniotic Fluid Color: Light Meconium Amniotic Fluid Amount: Moderate Vaginal Bleeding: None Cervix, Consistency: Soft Cervix, Position: Midposition Datetime: 01/19/2022 12:10 Provider Reviewed Strip: No Provider Notified (Name): Dr. Knox Notification Reason: Uterine Activity Datetime: 01/19/2022 11:49 Patient Care Comments: ambulatory in room Datetime: 01/19/2022 10:53 Contraction Comments: Patient states that she is feeling her contractions more than she did prior t o the dose of Misoprostol. Rates pain a 2/10, cramping and tightness Datetime: 01/19/2022 10:01 Cervical Ripening Agents: Cytotec @
== END 2022-01-21 12:45 | disposition home or self-care (01) | DRG 798 ==
LOC: WFO 07:39 → FBP 07:45 → WFO 09:19 → FBP 09:20 → OBSVTOIN 12:54
PROVIDERS: ADMIT Obstetrics & Gynecology; ATTEND Obstetrics & Gynecology
PROC: 0KQM0ZZ Repair Perineum Muscle, Open Approach (ICD-10-PCS; principal; 2022-01-19)
PROC: 10E0XZZ Delivery of Products of Conception, External Approach (ICD-10-PCS; 2022-01-19)
PROC: 3E0DXGC Introduction of Other Therapeutic Substance into Mouth and Pharynx, External Approach (ICD-10-PCS; 2022-01-19)
PROC: 3E033VJ Introduction of Other Hormone into Peripheral Vein, Percutaneous Approach (ICD-10-PCS; 2022-01-19)
PROC: 10907ZC Drainage of Amniotic Fluid, Therapeutic from Products of Conception, Via Natural or Artificial Opening (ICD-10-PCS; 2022-01-19)
PROC: 0UB70ZZ Excision of Bilateral Fallopian Tubes, Open Approach (ICD-10-PCS; 2022-01-20)
DX: O70.1 Second degree perineal laceration during delivery (principal); Z37.0 Single live birth; O24.420 Gestational diabetes mellitus in childbirth, diet controlled; Z3A.39 39 weeks gestation of pregnancy; O69.81X0 Labor and delivery complicated by cord around neck, without compression, not applicable or unspecified; O77.0 Labor and delivery complicated by meconium in amniotic fluid; O99.344 Other mental disorders complicating childbirth; F32.A Depression, unspecified; O99.52 Diseases of the respiratory system complicating childbirth; J45.909 Unspecified asthma, uncomplicated; Z30.2 Encounter for sterilization; Z86.16 Personal history of COVID-19
CPT/HCPCS: 36415; 85025; 86850; 86900; 86901; 99406; A9270; J1170; J7120

== ENCOUNTER 2022-08-13 14:15 | Outpatient (CLI) | payer BC, OTHER ==
[2022-08-13 18:06] LABS: BASOPHILS # (AUTO) 0.1 10^3/uL (0.0-0.1); BASOPHILS % (AUTO) 0.9 %; EOSINOPHILS # (AUTO) 0.2 10^3/uL (0.0-0.7); EOSINOPHILS % (AUTO) 2.3 %; HCT - HEMATOCRIT 37.1 % (37.0-47.0); HGB - HEMOGLOBIN 11.3 g/dL (12.0-16.0); LYMPHOCYTES # (AUTO) 3.4 10^3/uL (1.5-3.5); LYMPHOCYTES % (AUTO) 38.5 %; MEAN CORPUSCULAR HEMOGLOBIN 25.7 pg (27.0-31.0); MEAN CORPUSCULAR HGB CONC 30.5 g/dL (32.0-36.0); MEAN CORPUSCULAR VOLUME 84.3 fL (81.0-99.0); MEAN PLATELET VOLUME 10.8 fL (7.9-10.8); MONOCYTES # (AUTO) 0.6 10^3/uL (0.0-1.0); MONOCYTES % (AUTO) 6.9 %; NEUTROPHILS # (AUTO) 4.5 10^3/uL (1.5-6.6); NEUTROPHILS % (AUTO) 51.2 %; PLT - PLATELET COUNT 456 10^3/uL (130-450); WHITE BLOOD COUNT 8.7 x10^3/uL (4.8-10.8)
[2022-08-13 18:08] LABS: ALBUMIN/GLOBULIN RATIO 1.2 (1.0-2.2); BILIRUBIN,TOTAL 0.4 mg/dL (0.2-1.0); CREATININE 0.6 mg/dL (0.4-1.0); POTASSIUM 3.3 mmol/L (3.5-5.0); TOTAL PROTEIN 7.4 g/dL (6.7-8.2)
[2022-08-13 18:23] LABS: THYROID STIMULATING HORMONE 1.28 uIU/mL (0.34-5.60)
[2022-08-13 18:25] LABS: FREE T4 (FREE THYROXINE) 0.83 ng/dL (0.58-1.64)
[2022-08-13 19:53] LABS: INFECTIOUS MONONUCLEOSIS NEGATIVE (Negative)
[2022-08-13 20:48] LABS: ESTIMATED AVERAGE GLUCOSE 108 mg/dL (70-100); HEMOGLOBIN A1c% 5.4 % (4.27-6.07)
== END 2022-08-13 14:30 | disposition home or self-care (01) ==
LOC: LAB.N 14:15
PROVIDERS: ATTEND Registered Nurse
DX: R53.83 Other fatigue (principal); R20.2 Paresthesia of skin; R60.9 Edema, unspecified
CPT/HCPCS: 36415; 80053; 83036; 84439; 84443; 85025; 86308

== ENCOUNTER 2023-04-28 17:16 | Emergency (ER) | payer BC, OTHER ==
[2023-04-28 17:42] VITALS: O2SAT 100
[2023-04-28 19:38] LABS: BILIRUBIN,URINE NEGATIVE (NEGATIVE); GLUCOSE, URINE (UA) NEGATIVE (NEGATIVE); KETONES,URINE (UA) NEGATIVE (NEGATIVE); LEUKOCYTE ESTERASE, URINE NEGATIVE (NEGATIVE); NITRITE,URINE NEGATIVE (NEGATIVE); OCCULT BLOOD,URINE NEGATIVE (NEGATIVE); PH,URINE 6.5 PH (5.0-7.5); PROTEIN,URINE NEGATIVE (NEGATIVE); UROBILINOGEN,URINE 0.2 (NORMAL) E.U./dL (NORMAL)
[2023-04-28 19:48] LABS: CLARITY,URINE CLEAR (CLEAR); HCG UR QUAL NEGATIVE
--- NOTE | 2023-04-28 20:35 | ED Physician Documentation ---
History of Present Illness - Stated complaint Stated Complaint: - Chief complaint Chief Complaint: General - History obtained from History obtained from: Patient - Additonal information Additional information: 27-year-old woman, previously healthy, presents to the emergency department with lesions to vulva area X 5 days. Patient shaves her pubic hair. denies vesicles or injury to the area. denies urinary sx. 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 : None HEENT: None Psych: Depression, Anxiety Musculoskeletal: None Derm: None - Past Surgical History Past Surgical History: No General: EGD, Other - Present Medications Home Medications: Ambulatory Orders Medication Instructions Recorded Confirmed Ibuprofen [Motrin] 600 mg PO Q6H PRN #30 tab 01/21/22 Amitriptyline [Elavil] 25 mg PO DAILY 04/28/23 Citalopram [CeleXA] 25 mg PO DAILY 04/28/23 Doxepin [SINEquan] 10 mg PO QPM 04/28/23 Mupirocin 2% Oint [Bactroban 2% 1 applic TOP BID 7 Days #50 gm 04/28/23 Oint] - Allergies Allergies/Adverse Reactions: Allergies Allergy/AdvReac Type Severity Reaction Status Date / Time No Known Drug Allergies Allergy Verified 04/28/23 17:35 - Social History Does the pt smoke?: No Smoking Status: Former smoker Does the pt drink ETOH?: No Does the pt have substance abuse?: No - Immunizations Immunizations are current?: Yes - POLST Patient has POLST: No PD ED PE NORMAL - Vitals Vital signs reviewed: Yes - General General: Alert and oriented X 3, No acute distress, Well developed/nourished - HEENT HEENT: Atraumatic, PERRL, EOMI - Neck Neck: Supple, no meningeal sign - Female Female : 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 multiple lesions to L labia majora with associated hair follicles. one similar lesion to R labia majora) - Derm Derm: Normal color, Warm and dry Results - Vitals Vitals: Vital Signs - 24 hr 04/28/23 17:29 Temperature 37.0 C Heart Rate 110 H Respiratory 17 Rate Blood Pressure 116/80 O2 Saturation 100 Oxygen O2 Source Room air - Labs Labs: Laboratory Tests 04/28/23 04/28/23 19:25 19:25 Urine Color LT. YELLOW Urine Clarity CLEAR Urine pH 6.5 Ur Specific [place] 1.010 Urine Protein NEGATIVE Urine Glucose (UA) NEGATIVE Urine Ketones NEGATIVE Urine Occult Blood NEGATIVE Urine Nitrite NEGATIVE Urine Bilirubin NEGATIVE Urine Urobilinogen 0.2 (NORMAL) Ur Leukocyte Esterase NEGATIVE Ur Microscopic Review NOT INDICATED Urine Culture Comments NOT INDICATED Urine HCG, Qual NEGATIVE PD Medical Decision Making - ED course ED course: 27-year-old woman in monogamous 8-year long relationship presents with lesions to vulva area after shaving, painful and red for the past 5 days. These do not look herpetic in origin she confirms she has not had any vesicles on the labia. cervical swab sent for GC/chlamydia which she will f/u on patient health portal and advised her to follow-up with her MILL MANAGER. Return precautions given. Departure - Departure Disposition: Home, Self Care Clinical Impression: Vaginal lesion Condition: Stable Prescriptions: Mupirocin 2% Oint [Bactroban 2% Oint] 1 applic TOP BID 7 Days #50 gm Comments: You were seen in the emergency department for Medical evaluation. The lesions appear to be ingrown hairs, but a gonorrhea and chlamydia swab was sent to the laboratory. Antibiotic ointment was sent electronically to [facility] in [place]. Please follow-up with your primary care provider and return to the emergency department if you have any new or worsening symptoms or other concerns. Forms: PCP List
[2023-04-28 20:41] VITALS: BP 127/85
[2023-04-28 23:26] LABS: CHLAMYDIA TRACHOMATIS DNA NEGATIVE (NEGATIVE); NEISSERIA GONORRHOEAE DNA NEGATIVE (NEGATIVE); TRICHOMONAS VAGINALIS DNA NEGATIVE (NEGATIVE)
== END 2023-04-28 20:35 | disposition home or self-care (01) ==
LOC: ED 17:16
DX: N90.89 Other specified noninflammatory disorders of vulva and perineum (principal); Z87.891 Personal history of nicotine dependence; Z79.899 Other long term (current) drug therapy
CPT/HCPCS: 81001; 81003; 81025; 87086; 87491; 87591; 87661; 99283

== ENCOUNTER 2023-05-12 15:56 | Outpatient (CLI) | payer BC, OTHER ==
--- NOTE | 2023-05-12 17:45 | SLEEP CARE CONSULTATION ---
Information from patient questionnaire entered by Nandini Duckworth. I have reviewed and concur with the information entered by Nandini Duckworth. This document represents the service I personally performed and the decisions made by me, Cailin Mcintosh MD, [facility]. History of Present Illness Service Date and Time: 05/12/2023 1556 Reason for Visit: New patient Chief Complaint: reports: Insomnia Date of Onset: 19YRS Usual bedtime: 2100 Time it takes to fall asleep: 3+HRS Snores at night: No Observed to quit breathing while asleep: No Sleeps alone due to snoring: No Number of times waking at night: 3-9 Reasons for waking at night: reports: Other (UNKNOWN) Toss, Turn, or Twitch while sleeping: Yes Recalls having dreams: Yes Usually gets out of bed at: 0530 Feels refreshed in the morning: No Morning headache: No Sleepy or fatigued during the day: Yes Ever fallen asleep while driving: No Takes day naps: No Prior sleep studies: No Additional HPI information: I have the pleasure of seeing Ms. Segura today via video telemedicine ([facility]) regarding the possibility of her having a sleep disorder. As you know, she is a 27-year-old lady who diagnosed with insomnia since she was 8 years old. She was prescribed several medications which include melatonin, Unisom, amitriptylene, trazodone, and Seroquel. Presently, she takes doxepin and amitriptylene. She has never seen a sleep physician. Cognitive behavior therapy has never been addressed or tried. She said none of the medications works. She reports getting on an average of 4 6 hours of sleep a night throughout her life. She says that she would be happy if she can get 6 hours of sleep. The patient tells me that she normally goes to bed around 9 pm, and it takes her approximately 2.5 hours to fall asleep. She does snore at night and has been told that she stops breathing. She sleeps next to her. She can recall waking up on the average of 3- 8 times during the night. Most of the time she wakes up because of unknown reason. She has awakened occasionally because of her own snoring, choking, and having to gasp for air. There is a lot of tossing and turning in her sleep. She has somniloquy (sleep talking) but no somnambulism (sleep walking). Generally, she can recall having dreams. In the morning she usually gets up out of the bed around 5:20 a.m. (7 on weekends) not feeling refreshed nor rested. She has to be at work by 6:30 am. She usually does not have a morning headache. During the day she complains of feeling sleepy and fatigued. Her score on Moraga Sleepiness Scale is 3 out of 24. She never has fallen asleep while driving nor has had any accident due to sleepiness. She usually does not take naps during the day. She denies having impaired concentration during the day. 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 Patient is and lives in [place]. Have you smoked in the past 12 months: No Years of smokin Quit date: 2020 Alcohol use: No Caffeine use: Yes Caffeine amount and frequency: 12OZ QD Family History Family history of sleep disordered breathing: Yes Family Hx Sleep Apnea: Mother: Sleep apnea - Treated Allergies and Home Medications Known drug allergies: Yes ( LISTED) Drug allergies reviewed: Yes Home medication list reviewed: Yes Allergy and home medication list: Allergies No Known Drug Allergies Allergy (Verified 05/10/23 12:31) Review of Systems Weight gain over past 5 years: 10 Cardiovascular: denies: high blood pressure, palpitations, chest pain, irregular heart rate or pulse, leg or foot swelling, have to sleep sitting up, other Respiratory: reports: other (ASTHMA) Gastrointestinal: reports: diarrhea Urinary: denies: incontinence, frequency, urgency, impotence, other Neurological: denies: headaches, seizure, head trauma, disorientation, speech dysfunction, gait or balance problems, fainting or unconsciousness, other Psychiatric: denies: Attention Deficit Hyperactivity, anxiety, depression, mood disorder, claustrophobia, other Ear/Nose/Throat: reports: sinus problems, wisdom teeth removed, other (TONISL STONES) Endocrine: denies: thyroid disease, history of goiter, sluggishness, too hot or cold, excessive thirst, increased appetite, increased urination, unexplained weakness, other Musculoskeletal: denies: joint pain, neck pain, back pain, joint swelling, muscle pain or cramping, mobility problems, other Immunologic: denies: sneezing, rash, itching, allergies to food or environment, other Physical Exam Vital signs obtained and entered by: NANDINI Ann MA Blood Pressure: 114/70 (PER PT) Height: 5 ft 7 in (PER PT) Weight: 160 lb (PER PT) Body Mass Index: 25.0 BMI Classification: Overweight Impression and Plan IMPRESSION: 1. Chronic insomnia, involving both the sleep onset and frequent awakenings during the night. From her report, it appears that she is not someone that requires 8 hours of sleep a night. She might even be a short sleepersomeone who requires less than 6 hours of sleep. The low Moraga Sleepiness Scale score also suggests that she has been getting adequate sleep all along. Therefore, trying to make her sleep more by sedating her is not recommended. Because she says she is happy with 6 hours of sleep, I advise her to spend only 6 hours in bed. If she gets up at 5:20 a.m., she should delay her bedtime to 11:20 p.m. In the meantime, I will order an in-laboratory polysomnography to further evaluate her frequent awakenings during the night. She does snore and has been to that she stops breathing in her sleep. Plan: 1. Schedule polysomnography and return in 1 to 2 weeks after the study to discuss result and initiate therapy. 2. Maintain a regular wake up time and spend no more than 6 hours in bed at night. Avoid naps. 3. Continue with doxepin and amitriptylene for now. The senior living goal is to get her off them. Follow up with Sleep Care in: 1-2 months Visit Type: Telehealth Video Video Type: Doximity Patient Location: in her car Location of Provider: Office Patient agrees and consents to this telehealth visit type: Yes Patient agrees to have their insurance billed: Yes Time Spent with Patient (minutes): 15 Provider Statement: I spent 100% of the Telehealth Video Call with the patient with greater than 50% spent counseling the patient and coordination of care.
[2023-05-12 17:57] VITALS: BP 114/70
== END 2023-05-12 15:57 | disposition home or self-care (01) ==
LOC: SC 15:56
PROVIDERS: ATTEND Internal Medicine Pulmonary Disease
DX: F51.04 Psychophysiologic insomnia (principal); R06.83 Snoring; R06.81 Apnea, not elsewhere classified

== ENCOUNTER 2023-06-03 14:25 | Outpatient (CLI) | payer BC, OTHER | END 2023-06-03 14:26 | disposition home or self-care (01) | LOC: SC 14:25 | PROVIDERS: ATTEND Internal Medicine Pulmonary Disease | DX: R00.0 Tachycardia, unspecified (principal) | CPT/HCPCS: 95806 ==

== ENCOUNTER 2023-06-16 10:05 | Outpatient (CLI) | payer BC, OTHER ==
--- NOTE | 2023-06-16 10:04 | SLEEP CARE CONSULTATION ---
Information from patient questionnaire entered by Linda Duckworth. I have reviewed and concur with the information entered by Linda Duckworth. This document represents the service I personally performed and the decisions made by , Evangelina Duval ARNP. History of Present Illness Service Date and Time: 06/16/2023 1000 Initial Cascade Sleepiness Scale score: 3 (03/29/23) Current Cascade Sleepiness Scale score: 3 (06/16/23) Additional HPI information: BRAVO OCHOA returns via video appointment for follow up and results of the recently performed home sleep study. The patient was informed of the following findings: No significant sleep disordered breathing with an average AHI of 4.5 and giuliano oxygen saturation of 90%. Her supine AHI was 5.3 and tachycardia with maximum 121 bpm. Patient has moderate snoring. Patient was cautioned about risks of drowsy driving until sleepiness symptoms resolve. Sleep Study - Results Type of Sleep Study: Home sleep study (COMPLETD 06/03/23) Prior sleep studies: No Polysomnography/Home Sleep Study results: Physician Impression: The quality of the study is fair due to partial loss of pulse oximetry signal near the end of the study. The length of the study is adequate (> 240 minutes). Please also see the tabulated and graphic data. 1. No significant sleep disordered breathing, with an AHI of 4.5/hr and giuliano SaO2 of 90%. During the study, the patient had 18 apneas (18 obstructive, 0 central, 0 mixed) and 16 hypopneas. The longest episode lasted 63.0 seconds. The patient slept mostly supine (supine AHI was 5.3 and non-supine, 0.77). 2. Tachycardia, with maximum recorded heart rate of 121 beats per minute. Allergies and Home Medications Known drug allergies: No Drug allergies reviewed: Yes Home medication list reviewed: Yes (increased doxepin from 3 to 6 mg) Allergy and home medication list: Allergies No Known Drug Allergies Allergy (Verified 06/15/23 08:54) Home Medications Medication Instructions Recorded Confirmed Last Taken Type Amitriptyline [Elavil] 25 mg PO DAILY 04/28/23 06/16/23 Unknown History Citalopram [CeleXA] 25 mg PO DAILY 04/28/23 06/16/23 Unknown History Doxepin [SINEquan] 10 mg PO QPM 04/28/23 06/16/23 Unknown History Cyclobenzaprine [Flexeril] See Rx Instructions .ROUTE .COMPLEX 05/12/23 06/16/23 Unknown History LORazepam [Ativan] See Rx Instructions .ROUTE .COMPLEX 05/12/23 06/16/23 Unknown History Meloxicam See Rx Instructions .ROUTE .COMPLEX 05/12/23 06/16/23 Unknown History Review of Systems Review of systems same as previous: Yes (NO CHNAGE) Physical Exam Vital signs obtained and entered by: LINDA Ann MA Height: 5 ft 7 in (PER PT) Weight: 155 lb (PER PT) Body Mass Index: 24.3 BMI Classification: Normal Impression and Plan 1. Snoring but no significant sleep disordered breathing. However, her supine AHI was minimally elevated at 5.3 and she should avoid supine sleep. 2. Chronic insomnia. She also had unrefreshed sleep and daytime fatigue. She completed a HST but the results are borderline and recommendation was for her to complete a in lab sleep study. After some discussion, I recommend proceeding to polysomnography to confirm the diagnosis and to assess severity. I obtained ag reement to proceed. * Schedule polysomnography. * Avoid supine sleep until sleep study * Review instructions provided by trained office staff on how to prepare for the sleep study. * Return for follow-up after sleep study completed. Counseling Topics: Sleeping position Visit Type: Telehealth Video Video Type: Doximity Patient Location: Home Location of Provider: Office Patient agrees and consents to this telehealth visit type: Yes Patient agrees to have their insurance billed: Yes Time Spent with Patient (minutes): 20 Provider Statement: I spent 100% of the Telehealth Video Call with the patient with greater than 50% spent counseling the patient and coordination of care.
== END 2023-06-16 10:06 | disposition home or self-care (01) ==
LOC: SC 10:05
PROVIDERS: ATTEND Nurse Practitioner Family
DX: R06.83 Snoring (principal); G47.00 Insomnia, unspecified; G47.8 Other sleep disorders; F32.A Depression, unspecified

== ENCOUNTER 2023-07-27 20:33 | Outpatient (CLI) | payer BC, OTHER | END 2023-07-27 20:34 | disposition home or self-care (01) | LOC: SC 20:33 | PROVIDERS: ATTEND Nurse Practitioner Family | DX: G47.00 Insomnia, unspecified (principal); R06.83 Snoring | CPT/HCPCS: 95810 ==

== ENCOUNTER 2023-10-11 10:58 | Outpatient (CLI) | payer BC, OTHER ==
[2023-10-11 11:16] LABS: BASOPHILS # (AUTO) 0.1 10^3/uL (0.0-0.1); BASOPHILS % (AUTO) 0.9 %; EOSINOPHILS # (AUTO) 0.1 10^3/uL (0.0-0.7); EOSINOPHILS % (AUTO) 0.7 %; HGB - HEMOGLOBIN 12.1 g/dL (12.0-16.0); LYMPHOCYTES # (AUTO) 3.5 10^3/uL (1.5-3.5); LYMPHOCYTES % (AUTO) 36.9 %; MEAN CORPUSCULAR HEMOGLOBIN 27.1 pg (27.0-31.0); MEAN CORPUSCULAR VOLUME 87.4 fL (81.0-99.0); MEAN PLATELET VOLUME 10.3 fL (7.9-10.8); MONOCYTES # (AUTO) 0.7 10^3/uL (0.0-1.0); MONOCYTES % (AUTO) 7.6 %; NEUTROPHILS # (AUTO) 5.1 10^3/uL (1.5-6.6); NEUTROPHILS % (AUTO) 53.7 %; PLT - PLATELET COUNT 414 10^3/uL (130-450); RED BLOOD COUNT 4.46 10^6/uL (4.20-5.40); RED CELL DISTRIBUTION WIDTH 14.3 % (12.0-15.0); WHITE BLOOD COUNT 9.5 x10^3/uL (4.8-10.8)
[2023-10-11 11:26] LABS: BILIRUBIN,URINE NEGATIVE (NEGATIVE); GLUCOSE, URINE (UA) NEGATIVE (NEGATIVE); KETONES,URINE (UA) NEGATIVE (NEGATIVE); LEUKOCYTE ESTERASE, URINE NEGATIVE (NEGATIVE); NITRITE,URINE NEGATIVE (NEGATIVE); OCCULT BLOOD,URINE NEGATIVE (NEGATIVE); PROTEIN,URINE NEGATIVE (NEGATIVE); UROBILINOGEN,URINE 0.2 (NORMAL) E.U./dL (NORMAL)
[2023-10-11 11:34] LABS: CLARITY,URINE CLEAR (CLEAR)
[2023-10-11 11:36] LABS: RBC,URINE 0-5 /HPF (0-5); WBC,URINE 0-3 /HPF (0-5)
[2023-10-11 11:37] LABS: BACTERIA,URINE Few /HPF (None Seen); SQUAMOUS EPITHELIAL CELL,UR FEW Squamous (<= Few)
[2023-10-11 11:40] LABS: HCG,QUALITATIVE BLOOD NEGATIVE
== END 2023-10-11 10:59 | disposition home or self-care (01) ==
LOC: LAB 10:58
PROVIDERS: ATTEND Surgery
DX: R10.31 Right lower quadrant pain (principal)
CPT/HCPCS: 36415; 81001; 84703; 85025; 87086

== ENCOUNTER 2023-10-11 13:00 | Outpatient (CLI) | payer BC, OTHER ==
[2023-10-11] MEDS ORDERED: iohexoL-300 100 ML VIAL ONE (13:04)
[2023-10-11] MEDS ORDERED: DIATRIZOATE MEGLU/DIATRIZO SOD 30 ML BOTTLE PO ONE (13:04)
--- NOTE | 2023-10-11 15:25 | CT Report ---
PROCEDURE: Abdomen/Pelvis W INDICATIONS: RLQ PAIN CONTRAST: Omnipaque 300 100ml TECHNIQUE: After the administration of intravenous contrast, a CT scan of the abdomen and pelvis was performed. Images were recorded and evaluated at appropriate window settings. Reformats: coronal and sagittal. F or radiation dose reduction, the following was used: automated exposure control, adjustment of mA and /or kV according to patient size. COMPARISON: None. FINDINGS: Image quality: Diagnostic. Lower chest: Anteromedial right middle lobe density may represent atelectasis versus nodule. This is partially evaluated on this study. Lung bases are otherwise clear. Heart size is normal. Liver: No solid mass. Gallbladder and biliary tree: No radiopaque stones or wall thickening. No biliary dilation. Spleen: No splenomegaly. Pancreas: No pancreatic ductal dilation. Adrenals: No adrenal nodule. Kidneys and ureters: No hydronephrosis. No renal cystic lesion which requires follow up. No solid mas s. Stomach, bowel and peritoneum: No bowel distension. No pathologic free fluid. The appendix is not def initively visualized but there are no secondary findings for acute appendicitis. Lymph nodes: No central or retroperitoneal adenopathy. Vessels: No infrarenal aortic aneurysm. PELVIS Reproductive organs: Uterus appears unremarkable. No suspicious mass lesions identified in the adnexa l regions bilaterally. Bladder: No abnormal wall thickening, accounting for underdistention. Pelvic lymph nodes: No pelvic adenopathy by size criteria. Bones: No aggressive osseous abnormality. Other: No significant ventral or inguinal hernia. IMPRESSION: CT abdomen and pelvis without acute abnormalities to explain patient's right lower quadrant abdominal pain. The appendix is not definitively visualized; however, no secondary findings for acute appendic itis identified. No evidence for obstructive uropathy. No evidence for bowel obstruction. Reviewed by: Fredrick Mo MD on 10/11/2023 3:24 PM PDT Approved by: Fredrick Mo MD on 10/11/2023 3:24 PM PDT Station ID: [id number]
[2023-10-11] MEDS: DIATRIZOATE MEGLU/DIATRIZO SOD 30 ML BOTTLE PO ONE (17:41)
[2023-10-11] MEDS: iohexoL-300 100 ML VIAL IVP ONE (17:42)
== END 2023-10-11 13:01 | disposition home or self-care (01) ==
LOC: DI 13:00
PROVIDERS: ATTEND Surgery
DX: R10.31 Right lower quadrant pain (principal)
CPT/HCPCS: 74177; Q9963; Q9967; 36415; 81001; 84703; 85025; 87086

== ENCOUNTER 2023-10-20 18:30 | Outpatient (CLI) | payer BC, OTHER ==
--- NOTE | 2023-10-21 11:41 | Ultrasound Report ---
PROCEDURE: Pelvic Complete INDICATIONS: RLQ PAIN, PELVIC PAIN TECHNIQUE: Real-time transabdominal scanning was performed of the pelvic organs, with image documentation. COMPARISON: CT 10/11/2023. FINDINGS: Uterus: Uterus is anteverted and normal in size at 10 x 4.2 x 6.9 cm. The myometrium is heterogeneo us. The endometrium measures 13 mm in combined thickness. Ovaries: The right ovary measures 3.1 x 1.7 x 2.5 cm, with a calculated ovarian volume of 7 cc. The left ovary measures 2.4 x 2.6 x 2.7 cm, with a calculated ovarian volume of 9 cc. The ovaries have a normal sonographic appearance. Less than 12 follicles can be seen in each ovary. No adnexal jesus s are seen. No cystic lesions measuring greater than 3 cm. Other: No free pelvic fluid. IMPRESSION: No findings to explain the patient's right lower quadrant pain. Normal sonographic appearance of the ovaries. Reviewed by: Jose Chang MD on 10/21/2023 11:39 AM PDT Approved by: Jose Chang MD on 10/21/2023 11:39 AM PDT Station ID: [id number]
== END 2023-10-20 18:31 | disposition home or self-care (01) ==
LOC: DI 18:30
PROVIDERS: ATTEND Nurse Practitioner
DX: R10.31 Right lower quadrant pain (principal); R10.2 Pelvic and perineal pain